=== PATIENT | male | born 1985 | race Caucasian/White ===

== ENCOUNTER 2022-01-05 13:55 | Observation (INO) | payer MEDICAID, SELFPAY ==
[2022-01-05 13:57] VITALS: BP 143/89; PULSE 113; RESP 16; TEMP 36; O2SAT 99; BMI 31.1
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
[2022-01-05 15:11] LABS: Absolute Lymphocyte Count 3.06 X10^3/uL (0.83-4.51); Absolute Neutrophil Count 6.4 X10^3/uL (2.0-7.7); Basophil# 0.08 X10^3/uL; Basophil% 0.7 % (0-1); Eosinophil# 0.29 X10^3/uL; Eosinophils% 2.6 % (0-5); Hematocrit 31.6 % (40-54); Hemoglobin 10.7 g/dL (13.0-16.5); Lymphocyte # 3.06 X10^3/ul (0.83-4.51); Lymphocyte % 27.8 % (19-41); Mean Corp Hgb Conc 33.9 g/dL (32-36); Mean Corpuscular Hgb 30.5 pg (27.0-32.0); Mean Platelet Vol. 9.4 fl (6.2-12.0); Monocyte# 1.05 X10^3/uL; Monocyte% 9.6 % (0-10); NRBC Flagged by Analyzer 0 % (0-5); Neutrophil # 6.42 X10^3/uL (2.7-7.7); Neutrophil % 58.5 % (47-70); Platelet Count 480 K/mm3 (150-450); RBC Distribution Width CV 13.6 % (11.6-14.6); RBC Distribution Width SD 44.3 fl (35.1-43.9); Red Blood Count 3.51 M/mm3 (4.6-6.2)
[2022-01-05 15:19] LABS: Anion Gap 5 (5-15); BUN 16 mg/dL (7-18); BUN/Creat Ratio 18.9 RATIO (10-20); Calcium,Total 8.6 mg/dL (8.5-10.1); Chloride 102 mmol/L (98-107); Creatinine, Serum 0.84 mg/dL (0.70-1.30); EST Glomerular Filtration Rate 108 mL/min (>60); Est Glom Filt Rate - Afr Amer 131 mL/min (>60); Estimated Creatinine Clearance 132.16 ml/min; Glucose 132 mg/dL (74-106); Potassium 3.7 mmol/L (3.5-5.1); Sodium Level 136 mmol/L (136-145)
[2022-01-05] MEDS: Morphine 4 MG/ML Syringe IV (15:20)
[2022-01-05] MEDS: Ondansetron 4 MG/2 ML Vial IV (15:20)
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
[2022-01-05 15:57] VITALS: BP 116/73; PULSE 101; RESP 16; TEMP 36; O2SAT 96
[2022-01-05 15:58] VITALS: BP 116/73; PULSE 101; RESP 16; O2SAT 96
[2022-01-05 16:28] VITALS: BMI 29.4
[2022-01-05 16:43] VITALS: BP 118/78; PULSE 100; RESP 16; TEMP 36.3; O2SAT 95
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
[2022-01-05 21:08] VITALS: BP 129/78; PULSE 102; RESP 18; TEMP 37.3; O2SAT 98
[2022-01-05] MEDS: NYSTATIN 500,000 UNIT/5 ML UDC 500000 UNIT PO (21:10)
[2022-01-05] MEDS: Morphine 2 MG/ML Syringe IV (21:17)
[2022-01-05] MEDS: 0.9% Saline Lock 10 ML Syringe IV (21:17)
[2022-01-05] MEDS: oxyCODONE 5 MG Tablet 10 MG PO (23:12)
[2022-01-05] MEDS: Acetaminophen 500 MG Tablet 1000 MG PO (23:12)
--- NOTE | 2022-01-05 23:57 | NURSING ---
pt states that he uses lots of heroin. pt is unsure of the amount, but states he used prior to being admitted to this hospital. pt states he has to get out of here. states his sister is on her way to pick him up. pharmacist in charge asked if he would like help with the withdrawal symptoms. pt declined. charge asked if there was anything we could do to help stay here. pt declined additional help.
--- NOTE | 2022-01-06 00:51 | NURSING ---
pt left ama
--- NOTE | 2022-01-06 01:00 | PCM.HOSP.N ---
Hospitalist Note Patient despite encouragement from staff to stay and offered alteration to treatment plan including withdrawal/substance abuse treatment as admitted to heroin use, left AMA 01/06/22 00:51 am.
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
== END 2022-01-06 00:45 | disposition left against medical advice (07) ==
LOC: ED 15:30 → MS3 15:49
PROVIDERS: Admitting Provider Student in an Organized Health Care Education/Training Program; Emergency Provider Emergency Medicine; Visit Provider Student in an Organized Health Care Education/Training Program
DX: S72.002D Fracture of unspecified part of neck of left femur, subsequent encounter for closed fracture with routine healing (principal); F11.99 Opioid use, unspecified with unspecified opioid-induced disorder; S22.42XD Multiple fractures of ribs, left side, subsequent encounter for fracture with routine healing; R62.7 Adult failure to thrive; R53.81 Other malaise; S60.511D Abrasion of right hand, subsequent encounter; F17.210 Nicotine dependence, cigarettes, uncomplicated; S60.512D Abrasion of left hand, subsequent encounter; V87.7XXD Person injured in collision between other specified motor vehicles (traffic), subsequent encounter; S92.902D Unspecified fracture of left foot, subsequent encounter for fracture with routine healing; S02.609D Fracture of mandible, unspecified, subsequent encounter for fracture with routine healing; S62.101D Fracture of unspecified carpal bone, right wrist, subsequent encounter for fracture with routine healing
CPT/HCPCS: 73502; 80048; 85025; 87070; 87205; 96374; 96375; 96376; 99218; 99285; 99406; A4216; G0378; J2405

== ENCOUNTER 2025-04-26 12:02 | Inpatient (IN) | payer MEDICAID, SELFPAY ==
[2025-04-26 12:02] VITALS: BP 124/92; PULSE 71; RESP 14; TEMP 36.1; O2SAT 98; BMI 31.4
--- NOTE | 2025-04-26 12:39 | EDS_ITS ---
HPI <KAY Davidson - Last Filed: 04/26/25 14:41> History of Present Illness Chief Complaint: Substance Abuse Narrative Narrative: Patient presenting today requesting to detox from opioids. He reports that he has been using opioids for many years and primarily takes Percocets that he buys off the street as well as fentanyl which he snorts. He denies any IV drug use. He is unable to quantify how much he uses in a day but he last used yesterday. He is starting to feel like he is withdrawing. He reports stomach irritation and feeling irritable. He denies any other substance use. He denies having any chronic medical conditions that he is aware of. [facility] <KAY Davidson - Last Filed: 04/26/25 14:41> [facility] Medical History Substance abuse Smoker Migraines Jaw fracture Wrist fracture, right Foot fracture, left Rib fractures Hip fracture, left Home Medications ?Medication ?Instructions ?Recorded ?Last Taken ?Type NK 04/26/25 Unknown History Allergy/AdvReac Type Severity Reaction Status Date / Time No Known Allergies Allergy Verified 04/26/25 12:02 Surgical History Status post hip surgery Social History Smoking Status: Current every day smoker tobacco type: cigarettes ROS <KAY Davidson - Last Filed: 04/26/25 14:41> ROS ED Constitutional Constitutional ED: Denies chills or fever(s) Cardiovascular Cardiovascular: Denies chest pain Respiratory/Chest Respiratory/Chest: Denies dyspnea Gastrointestinal Gastrointestinal: Denies abdominal pain, nausea or vomiting Musculoskeletal Musculoskeletal: Denies arthralgias or myalgias Integumentary Denies rash Neurologic Neurologic: Denies weakness Psychiatric Psychiatric: Denies anxiety, depression, suicidal ideation or suicidal thoughts EXAM <KAY Davidson - Last Filed: 04/26/25 14:41> Physical Exam Const Vital Signs: 04/26/25 12:02 Temperature 97 F L Temperature Source Temporal Pulse Rate 71 Respiratory Rate 14 Blood Pressure 124/92 H Blood Pressure Mean 102 Pulse Ox 98 Oxygen Delivery Method Room Air Positive well nourished, well developed and no apparent distress General Appearance ED: well developed HEENT Reports normocephalic and head/scalp atraumatic Mouth ED: Yes moist mucous membranes normal Eyes PERRL and EOMs intact bilaterally Neck full ROM and supple Chest Wall inspection of chest normal Resp normal respiratory effort and clear to auscultation bilaterally Cardio regular rate and regular rhythm GI soft to palpation, non-tender, non-distended and no masses Back/Spine normal ROM and normal to inspection Extremity normal to inspection and full ROM Neuro moves all extremities, no focal motor deficits and no sensory deficits noted Sensorium / Orientation: awake and alert Psych mental status grossly normal and thought process normal Skin no rashes or lesions noted and no wounds <Dr. Clay Campos MD - Last Filed: 04/26/25 14:04> Physical Exam Const Vital Signs: 04/26/25 12:02 Temperature 97 F L Temperature Source Temporal Pulse Rate 71 Respiratory Rate 14 Blood Pressure 124/92 H Blood Pressure Mean 102 Pulse Ox 98 Oxygen Delivery Method Room Air MDM <KAY Davidson - Last Filed: 04/26/25 14:41> [facility] MDM Narrative Medical decision making narrative: Patient presenting today requesting to detox from opioids which she has used for many years. He buys Percocets off the streets and fentanyl which she snorts. No IV drug use. He has never detoxed before. Last used yesterday. Labs obtained, his CBC and BMP are largely unremarkable. His urine drug screen is positive for fentanyl, amphetamines, and benzodiazepines. I spoke with Dr. Xie, patient admitted in stable condition for detox. Lab Data Labs: Laboratory Results - last 24 hr 04/26/25 04/26/25 12:54 13:50 WBC 8.3 RBC 4.82 Hgb 14.1 Hct 41.6 MCV 86.3 MCH 29.3 MCHC 33.9 RDW Std Deviation 40.2 RDW Coeff of Grace 12.7 Plt Count 235 MPV 10.7 Immature Gran % (Auto) 0.400 Neut % (Auto) 54.8 Lymph % (Auto) 35.8 [place] % (Auto) 6.3 Eos % (Auto) 1.9 Baso % (Auto) 0.8 Absolute Neuts (auto) 4.5 Absolute Lymphs (auto) 2.95 Nucleated RBC % 0 Sodium 145 Potassium 3.7 Chloride 108 Carbon Dioxide 26.1 Anion Gap 10 BUN 9 Creatinine 0.99 Estim Creat Clear Calc 120.79 Est GFR (MDRD) Non-Af 99 BUN/Creatinine Ratio 8.6 L Glucose 83 Calcium 9.1 Urine Opiates Screen NEGATIVE U Buprenorphine Qual NEGATIVE Ur Oxycodone Screen NEGATIVE Urine Methadone Screen NEGATIVE Urine Fentanyl Screen PRESUMPTIVE POSITIVE Ur Barbiturates Screen NEGATIVE Ur Phencyclidine Scrn NEGATIVE Ur Amphetamines Screen PRESUMPTIVE POSITIVE U Benzodiazepines Scrn PRESUMPTIVE POSITIVE Urine Cocaine Screen NEGATIVE U Cannabinoids Screen NEGATIVE Ethyl Alcohol < 10.1 <Dr. Clay Campos MD - Last Filed: 04/26/25 14:04> [facility] Lab Data Attestation: I reviewed the patient's lab results. Labs: Laboratory Results - last 24 hr 04/26/25 04/26/25 12:54 13:50 WBC 8.3 RBC 4.82 Hgb 14.1 Hct 41.6 MCV 86.3 MCH 29.3 MCHC 33.9 RDW Std Deviation 40.2 RDW Coeff of Grace 12.7 Plt Count 235 MPV 10.7 Immature Gran % (Auto) 0.400 Neut % (Auto) 54.8 Lymph % (Auto) 35.8 [place] % (Auto) 6.3 Eos % (Auto) 1.9 Baso % (Auto) 0.8 Absolute Neuts (auto) 4.5 Absolute Lymphs (auto) 2.95 Nucleated RBC % 0 Sodium 145 Potassium 3.7 Chloride 108 Carbon Dioxide 26.1 Anion Gap 10 BUN 9 Creatinine 0.99 Estim Creat Clear Calc 120.79 Est GFR (MDRD) Non-Af 99 BUN/Creatinine Ratio 8.6 L Glucose 83 Calcium 9.1 Urine Opiates Screen NEGATIVE U Buprenorphine Qual NEGATIVE Ur Oxycodone Screen NEGATIVE Urine Methadone Screen NEGATIVE Urine Fentanyl Screen PRESUMPTIVE POSITIVE Ur Barbiturates Screen NEGATIVE Ur Phencyclidine Scrn NEGATIVE Ur Amphetamines Screen PRESUMPTIVE POSITIVE U Benzodiazepines Scrn PRESUMPTIVE POSITIVE Urine Cocaine Screen NEGATIVE U Cannabinoids Screen NEGATIVE Ethyl Alcohol < 10.1 Management Discussion w/another healthcare provider: Hospitalist Treatment and Re-Evaluation Narrative: I have personally performed a face to face assessment of the patient and have reviewed the ROGER Note. I performed a substantive portion of the visit including all aspects of the following. My garza findings include: History is wanting detox from opiates. Snorts them does not use any IV drugs. Rare use of methamphetamine but denies alcohol use. Is been using heavily for years, has never done detox before. Not feeling severe withdrawal symptoms at the moment, last use was last night. Exam is alert and oriented x 3, heart is regular, no tachycardia, lungs clear, abdomen soft nontender nondistended. No signs of cellulitis. Medical Decison Making labs reviewed, toxicology. Discussed with hospitalist for detox bed. Other additions or changes: [None] Discharge Plan Dx/Rx/DC Orders Clinical Impression: Opioid dependence, Desire for detoxification Disposition Disposition: Acute Care Hospital [facility]
[2025-04-26 13:09] LABS: Absolute Lymphocyte Count 2.95 X10^3/uL (0.83-4.51); Absolute Neutrophil Count 4.5 X10^3/uL (2.0-7.7); Basophil# 0.07 X10^3/uL; Basophil% 0.8 % (0-1); Eosinophil# 0.16 X10^3/uL; Eosinophils% 1.9 % (0-5); Hematocrit 41.6 % (40-54); Hemoglobin 14.1 g/dL (13.0-16.5); Lymphocyte # 2.95 X10^3/ul (0.83-4.51); Lymphocyte % 35.8 % (19-41); Mean Corp Hgb Conc 33.9 g/dL (32-36); Mean Corpuscular Hgb 29.3 pg (27.0-32.0); Mean Corpuscular Volume 86.3 fL (80-94); Mean Platelet Vol. 10.7 fl (6.2-12.0); Monocyte# 0.52 X10^3/uL; Monocyte% 6.3 % (0-10); NRBC Flagged by Analyzer 0 % (0-5); Neutrophil # 4.52 X10^3/uL (2.7-7.7); Neutrophil % 54.8 % (47-70); Platelet Count 235 K/mm3 (150-450); RBC Distribution Width CV 12.7 % (11.6-14.6); RBC Distribution Width SD 40.2 fl (35.1-43.9); Red Blood Count 4.82 M/mm3 (4.6-6.2); White Blood Count 8.3 K/mm3 (4.4-11.0)
[2025-04-26 13:52] LABS: Alcohol, Blood (Medical)-Serum < 10.1 mg/dL (<=10.0)
[2025-04-26 13:53] LABS: Anion Gap 10 (5-15); BUN 9 mg/dL (4-19); BUN/Creat Ratio 8.6 RATIO (10-20); Calcium,Total 9.1 mg/dL (7.6-11.0); Carbon Dioxide 26.1 mmol/L (21.0-32.0); Chloride 108 mmol/L (98-108); Creatinine, Serum 0.99 mg/dL (0.70-1.20); EST Glomerular Filtration Rate 99 (>60); Estimated Creatinine Clearance 120.79 ml/min (50-250); Glucose 83 mg/dL (70-99); Potassium 3.7 mmol/L (3.3-5.1); Sodium Level 145 mmol/L (133-145)
[2025-04-26 14:02] VITALS: BP 127/68; PULSE 69; RESP 16; O2SAT 99
--- NOTE | 2025-04-26 14:22 | PCM.HP.STD ---
HPI - General General Date of Admission: 04/26/25 Date of Service: 04/26/25 Chief Complaint: Opioid detox HPI Narrative SILVIO GOMEZ, is a 38-year-old male history of opioid use disorder, tobacco use presented to [facility] ED 04/26/2025 for detox from opioids. He has been using opioids for many years, primarily Percocet which he buys off the street as well as fentanyl which he snorts. Denies any IV drug abuse. Last use was yesterday and he feels like he has started drawing. Feeling irritable with an upset stomach. In the ED vitally stable and lab workup with no evidence of endorgan damage. Hospitalist contacted for admission for opioid detox. Patient reports history as above with frequent use of Percocet and fentanyl for many years with last use yesterday, feeling somewhat irritable some GI upset and beginning to feel rough. Also uses meth 3 times a week with last use yesterday or the day before. Does smoke cigarettes with 1 pack/day. COUNTS INCLUDE 234 BEDS AT THE [facility] Medical History Substance abuse Smoker Migraines Jaw fracture Wrist fracture, right Foot fracture, left Rib fractures Hip fracture, left Home Medications ?Medication ?Instructions ?Recorded ?Last Taken ?Type NK 04/26/25 Unknown History Allergy/AdvReac Type Severity Reaction Status Date / Time No Known Allergies Allergy Verified 04/26/25 12:02 Surgical History Status post hip surgery Social History Smoking Status: Current every day smoker tobacco type: cigarettes ROS ROS Narrative General: Denies fever/chills HENT: Denies headache, denies stuffy nose, denies sore throat EYES: Denies changes in vision Resp: Denies cough, denies shortness of breath Cardiac: Denies chest pain GI: Denies abdominal pain, denies changes in bowel, denies nausea/vomiting, just feels stomach is not feeling very good : Denies changes in urination Extremity: Denies swelling MSK: Denies weakness Neuro: Denies any numbness/tingling Heme: Denies any bleeding or bruising Skin: Denies rashes Psychiatric: Starting to feel rough, feeling irritable Vital Signs Vital Signs Vital Signs: 04/26/25 12:02 Temperature 97 F L Temperature Source Temporal Pulse Rate 71 Respiratory Rate 14 Blood Pressure 124/92 H Blood Pressure Mean 102 Pulse Ox 98 Oxygen Delivery Method Room Air Weight Weight: 102.3 kg Body Mass Index (BMI) 31.4 Physical Exam Narrative General: Alert, oriented, no apparent distress HEENT: Atraumatic, normocephalic Eyes: Anicteric, normal conjunctiva, extraocular movements grossly intact Neck: Supple Respiratory: Clear to auscultation bilaterally, normal respiratory effort Cardiovascular: Regular rate and rhythm GI: Soft, nontender, nondistended Extremities: Trace lower extremity edema Musculoskeletal: Moving all extremities Neuro: No overt focal neurological deficits Skin: No rashes appreciated Psych: Cooperative Results Lab / Micro Data 04/26/25 12:54 04/26/25 12:54 Labs: Laboratory Results - last 24 hr 04/26/25 12:54: WBC 8.3, RBC 4.82, Hgb 14.1, Hct 41.6, MCV 86.3, MCH 29.3, MCHC 33.9, RDW Std Deviation 40.2, RDW Coeff of Grace 12.7, Plt Count 235, MPV 10.7, Immature Gran % (Auto) 0.400, Neut % (Auto) 54.8, Lymph % (Auto) 35.8, [place] % (Auto) 6.3, Eos % (Auto) 1.9, Baso % (Auto) 0.8, Absolute Neuts (auto) 4.5, Absolute Lymphs (auto) 2.95, Nucleated RBC % 0, Sodium 145, Potassium 3.7, Chloride 108, Carbon Dioxide 26.1, Anion Gap 10, BUN 9, Creatinine 0.99, Estim Creat Clear Calc 120.79, Est GFR (MDRD) Non-Af 99, BUN/Creatinine Ratio 8.6 L, Glucose 83, Calcium 9.1, Ethyl Alcohol < 10.1 Assessment & Plan Assessment/Plan (1) Opioid dependence: PLAN: Plan #Acute opiate withdrawal - Subutex taper initiated - As needed Tylenol, ibuprofen, bowel regimen, gabapentin, Bentyl, Vistaril, methocarbamol, clonidine - As needed trazodone nightly - As needed antiemetics -Once patient begins to clinically improve will discuss further discharge planning # Methamphetamine use disorder - Uses 3 times a week, last use 1 to 2 days ago - Advised cessation - UDS pending #Tobacco use -Advise cessation -Nicotine replacement available if desired #DVT ppx: Low risk, ambulatory Olivia Xie MD Charges/Coding Visit Charges Inpatient E&M: 41293 Init Hosp L1
[2025-04-26 14:34] LABS: Amphetamine Urine PRESUMPTIVE POSITIVE (<1000 ng/mL); Barbiturate Urine NEGATIVE (< 200 ng/mL); Benzodiazepine Urine PRESUMPTIVE POSITIVE (< 200 ng/mL); Buprenorphine Urine NEGATIVE (< 200 ng/mL); Cocaine Urine NEGATIVE (< 300 ng/mL); Fentanyl, Urine PRESUMPTIVE POSITIVE; Methadone Urine NEGATIVE (< 300 ng/mL); Opiates Urine NEGATIVE (< 300 ng/mL); Oxycodone, Urine NEGATIVE (< 100 ng/mL); PCP Urine NEGATIVE (< 25 ng/mL); THC Urine NEGATIVE (< 50 ng/mL)
[2025-04-26 16:00] VITALS: BP 136/66; PULSE 78; RESP 14; TEMP 37.2; O2SAT 99
[2025-04-26 17:25] VITALS: BP 130/97; PULSE 66; RESP 17; TEMP 36.8; O2SAT 98
--- OUTSIDE RECORDS SUMMARY | 2025-04-26 19:21 | XMS RPT_ITS | CCD ---
Author Organization [facility] Care Team Providers Care Denture Technician Name Role Phone Unavailable Primary Care Provider Unavailabl e Care Physician, No Primary Primary Care Provider Unavailable Andres SWAN, Dr. Williamson Emergency Provider Rojas SWAN, Dr. Baker Attending Provider [phone] Rojas SWAN, Dr. Baker Admit Provider Rojas SWAN, Dr. Baker Referring Provider Medications Current Medications Medication Drug Class(es) Dates Sig (Normalized) Sig (Original) Castana (Nk) (1 source) Start: 04-26-2025 Castana (Nk) A ctive April 26, 2025 12:00am Completed/Discontinued Medications Medication Drug Class(es) Dates Sig (Normalized) Sig (Original) acetaminophen 500 mg oral tablet (1 source) Start: 01-05-2022 End: 04-26-2025 take 2 tablets by mouth every six hours as needed for pain Acetaminophen 500 mg Tablet Discontinued 1000 mg PO EVERY 6 HOURS as needed for Pain January 05, 2022 1:00am April 26, 2025 12:48pm 2 ml naloxone hydrochloride 1 mg/ml prefilled syringe (2 sources) Opioid Antagonist Start: 04-25-2025 End: 04-25-2025 1 mg, IntraVENous, Once, On [place] 04/25/25 at 1725, For 1 dose, For oversedation/diffic ult to rouse, pinpoint pupils, RR Start: 04-25-2025 End: 04-25-2025 1 mg, IntraVENous, Once, On [place] 04/25/25 at 1725, For 1 dose, For oversedation/difficult to rouse, pinpoint pupils, RR microencapsulated potassium chloride 10 meq extended release oral tablet (2 sources) Start: 04-25-2025 End: 04-25-2025 40 mEq, Oral, Once, On [place] 04/25/25 at 1705, For 1 dose, Best given with food and plenty of water to minimize gastric irritation. Do not crush or chew. 50 ml sodium chloride 9 mg/m l injection (6 sources) Start: 04-25-2025 End: 04-25-2025 1,000 mL, IntraVENous, at 1,000 mL/hr, Administer over 1 Hours, Once, On [place] 04/25/25 at 2040, For 1 dose Problems Active Problems Problem Classification Problem Date Documented Date Episodic/Chronic Complications of surgical procedures or medical care (2 sources) Trauma and postoperative pulmonary insufficiency; Translations: [Acute postprocedural respiratory failure] Onset: 01-03-2022 01-03-2022 Episodic Fracture of lower limb (4 sources) Closed fracture of calcaneus; Translations: [Unspecified fracture of left calcaneus, subsequent encounter for fracture with routine healing] Onset: 01-03-2022 Episodic Fracture of upper limb (6 sources) Closed fracture of base of thumb; Translations: [Other displaced fracture of base of first metacarpal bone, right hand, subsequent encounter for fracture with routine healing] Onset: 01-03-2022 Episodic Other aftercare (1 source) Patient encounter status; Translations: [Encounter for other specified aftercare] 01-05-2022 Episodic Other fractures (1 source) Closed fracture of acetabulum; Translations: [Unspecified fracture of left acetabulum, subsequent encounter for fracture with routine healing] Episodic Other fractures (2 sources) Closed fracture of left acetabulum; Translations: [Unspecified fracture of left acetabulum, initial encounter for closed fracture] Onset: 01-03-2022 01-03-2022 Episodic Other injuries and conditions due to external causes (2 sources) Traumatic injury; Translations: [Injury, unspecified, initial encounter] Onset: 12-29-2021 12-29-2021 Episodic Other nutritional; endocrine; and metabolic disorders (1 source) Adult failure to thrive syndrome; Translations: [Adult failure to thrive] 01-05-2022 Episodic Poisoning by other medications and drugs (2 sources) Poisoning by other opioids, accidental (unintentional), initial encounter; Translations: [Poisoning by opium (alkaloids), unspecified] 04-25-2025 Episodic Residual codes; unclassified (2 sources) Delirium; Translations: [Disorientation, unspecified] Onset: 12-29-2021 12-29-2021 Episodic Residual codes; unclassified (2 sources) Withdrawal symptom; Translations: [Other general symptoms and signs] Onset: 12-29-2021 12-29-2021 Episodic Skull and face fractures (2 sources) Closed subcondylar fracture of right mandible; Translations: [Fracture of subcondylar process of right mandible, initial encounter for closed fracture] Onset: 01-01-2022 01-03-2022 Episodic Substance-related disorders (6 sources) Nicotine dependence; Translations: [Nicotine dependence, unspecified, uncomplicated] Onset: 12-30-2021 01-03-2022 Chronic Unclassified (1 source) Readiness finding 04-26-2025 Past or Other Problems Problem Classification Problem Date Documented Da te Episodic/Chronic Unclassified (2 sources) Opioid overdose, accidental or unintentional, initial encounter ([facility]) 04-26-2025 Results Test Name Value Interpretation Reference Range Facility Absolute lymphocyte countOrd ered By: Juana Lafleur on 04-26-2025 Lymphocytes Auto (Unsp spec) [#/Vol] 2.95 10*3/uL 0.83-4.51 [facility] Absolute neutrophil countOrd ered By: Juana Lafleur on 04-26-2025 Neutrophils (Bld) [#/Vol] 4.5 10*3/uL 2.0-7.7 [facility] Amphetamine detection with 1 000 ng/mL as cutoffOrdered By: Juana Lafleur on 04-26-2025 Amphetamines Screen method >1000 ng/mL Ql (U) Positive <1000 ng/mL [facility] Comment on above: If confirmation test ing is needed, a separate order will be required to send out testing to the reference laboratory. Amphetamines Screen method >1000 ng/mL Ql (U) Negative < 200 ng/mL [facility] Anion gap in Serum or Plasma Ordered By: Juana Lafleur on 04-26-2025 Anion gap [Moles/Vol] 10 mmol/L 5-15 [facility] Automated lymphocyte count a s percentage of total leukocytesOrdered By: Juana Lafleur on 04-26-2025 Lymphocytes/100 WBC Auto (Unsp spec) 35.8 % 19-41 [facility] BUN/creatinine ratioOrdered By: Juana Lafleur on 04-26-2025 Urea nitrogen/Creatinine [Mass ratio] 8.6 mg/mg Low 10-20 [facility] Basophil percentageOrdered B y: Juana Lafleur on 04-26-2025 Basophils/100 WBC (Bld) 0.8 % 0-1 [facility] Carbon dioxide, total [Moles /volume] in Central venous bloodOrdered By: Juana Lafleur on 04-26-2025 CO2 [Moles/Vol] 26.1 mmol/L 21.0-32.0 [facility] Chloride assayOrdered By: Hiral Lafleur on 04-26-2025 Chloride [Moles/Vol] 108 mmol/L 98-108 [facility] Eosinophil percentageOrdered By: Juana Lafleur on 04-26-2025 Eosinophils/100 WBC (Bld) 1.9 % 0-5 [facility] Erythrocyte distribution wid th ratioOrdered By: Juana Lafleur on 04-26-2025 Erythrocyte distribution width (RBC) [Ratio] 12.7 % 11.6-14.6 [facility] Erythrocyte distribution wid th standard deviationOrdered By: Juana Lafleur on 04-26-2025 Erythrocyte distribution width (RBC) [Ratio] 40.2 fl 35.1-43.9 [facility] Glomerular filtration rate ( GFR) estimation/1.73 sq m using serum, plasma, or whole bOrdered By: Juana Lafleur on 04-26-2025 GFR/1.73 sq M.predicted among non-blacks MDRD (S/P/Bld) [Vol rate/Area] 99 mL/min/{1.73_m2} >60 [facility] Comment on above: mL/min/1.73m2 CKD-EP I Creatinine Equation (2020) Hematocrit Auto (Bld) [Volum e fraction]Ordered By: Juana Lafleur on 04-26-2025 Hematocrit (Bld) [Volume fraction] 41.6 % 40-54 [facility] Hemoglobin measurementOrdere d By: Juana Lafleur on 04-26-2025 Hemoglobin (Bld) [Mass/Vol] 14.1 g/dL 13.0-16.5 [facility] Immature granulocytes/100 WB C Auto (Bld)Ordered By: Juana Lafleur on 04-26-2025 Immature granulocytes/100 WBC (Bld) 0.400 % 0.0-0.9 [facility] Comment on above: IG% - Immature Granu locytes (promyelocytes, myelocytes and metamyelocytes) > 1% indicates that a LEFT SHIFT is Present. Laboratory - Drug toxicology on 04-26-2025 Amphetamines Screen method >1000 ng/mL Ql (U) Positive [facility] Barbiturates Screen method >200 ng/mL Ql (U) Negative [facility] Benzodiazepines Ql (U) Positive [facility] Methadone Screen Ql (U) Negative [facility] Opiates Screen Ql (U) Negative [facility] oxyCODONE Ql (U) Negative [facility] Phencyclidine Ql (U) Negative [facility] MCV (mean corpuscular volume ) determinationOrdered By: Juana Lafleur on 04-26-2025 MCV (RBC) [Entitic vol] 86.3 fL 80-94 [facility] Mean corpuscular hemoglobin (MCH) determinationOrdered By: Juana Lafleur on 04-26-2025 MCH (RBC) [Entitic mass] 29.3 pg 27.0-32.0 [facility] Mean corpuscular hemoglobin concentration (MCHC) determinationOrdered By: Juana Lafleur on 04-26-2025 MCHC (RBC) [Mass/Vol] 33.9 g/dL 32-36 [facility] Mean platelet volume determi nationOrdered By: Juana Lafleur on 04-26-2025 Platelet mean volume (Bld) [Entitic vol] 10.7 fL 6.2-12.0 [facility] Monocyte percentageOrdered B y: Juana Lafleur on 04-26-2025 Monocytes/100 WBC (Bld) 6.3 % 0-10 [facility] Neutrophil percentageOrdered By: Juana Lafleur on 04-26-2025 Neutrophils/100 WBC (Bld) 54.8 % 47-70 [facility] No Panel InformationOrdered By: Juana Lafleur on 04-26-2025 Urine Buprenorphine Qualitative Negative < 200 ng/mL [facility] Urine Oxycodone Screen Negative < 100 ng/mL [facility] No Panel Informationon 04-26 COCAINE METAB. SCREEN Negative [facility] FENTANYL SCREEN, UR QUAL Positive [facility] The expected value f or all of the drugs listed above is Negative. The following drugs or drug groups have been screened for by Immunoassay at the following thresholds: Amphetamine class (1000 ng/mL) Barbiturates (200 ng/mL) Benzodiazepines (200 ng/mL) Cocaine (300 ng/mL) Methadone (300 ng/mL) Opiates (300 ng/mL) Oxycodone (100 ng/mL) PCP (25 ng/mL) Fentanyl (1.0 ng/ml) NOTE: These results are for medical treatment only. Analysis performed using non-forensic procedures. POSITIVE results are NOT confirmed by a more specific alternative method unless requested. If confirmation is needed, request confirmation under separate order. [facility] Nucleated red blood cell per centageOrdered By: Juana Lafleur on 04-26-2025 Nucleated RBC/100 WBC (Bld) [Ratio] 0 % 0-5 [facility] Platelet countOrdered By: Hiral Lafleur on 04-26-2025 Platelets (Bld) [#/Vol] 235 10*3/uL 150-450 [facility] Potassium measurement (mass/ volume)Ordered By: Juana Lafleur on 04-26-2025 Potassium (Unsp spec) [Mass/Vol] 3.7 mmol/L 3.3-5.1 [facility] Quantitative urine opiates m easurementOrdered By: Juana Lafleur on 04-26-2025 Opiates Ql (U) Negative < 300 ng/mL [facility] RBC Auto (Bld) [#/Vol]Ordere d By: Juana Lafleur on 04-26-2025 RBC (Bld) [#/Vol] 4.82 10*6/uL 4.6-6.2 [place] Screening urine fentanyl renetta surementOrdered By: Juana Lafleur on 04-26-2025 fentaNYL Screen Ql (U) Positive [facility] Comment on above: If confirmation test ing is needed, a separate order will be required to send out testing to the reference laboratory. Serum creatinine measurement (mass/volume)Ordered By: Juana Lafleur on 04-26-2025 Creatinine [Mass/Vol] 0.99 mg/dL 0.70-1.20 [facility] Serum glucose measurement (m ass/volume)Ordered By: Juana Lafleur on 04-26-2025 Glucose [Mass/Vol] 83 mg/dL 70-99 [facility] Serum or plasma calcium delfino urement (mass/volume)Ordered By: Juana Lafleur on 04-26-2025 Calcium [Mass/Vol] 9.1 mg/dL 7.6-11.0 [facility] Serum or plasma ethanol delfino urement (mass/volume)Ordered By: Juana Lafleur on 04-26-2025 Ethanol [Mass/Vol] mg/dL <10.1 [facility] Comment on above: This test is for med ical purposes only. The legal definition of intoxication varies according to local law. Serum or plasma urea nitroge n measurement (mass/volume)Ordered By: Juana Lafleur on 04-26-2025 Urea nitrogen [Mass/Vol] 9 mg/dL 4-19 [facility] Sodium levelOrdered By: Dirk Lafleur on 04-26-2025 Sodium [Moles/Vol] 145 mmol/L 133-145 [facility] Urine benzodiazepine levelOr dered By: Juana Lafleur on 04-26-2025 Benzodiazepines Ql (U) Positive < 200 ng/mL [facility] Comment on above: If confirmation test ing is needed, a separate order will be required to send out testing to the reference laboratory. Urine cocaine levelOrdered B y: Juana Lafleur on 04-26-2025 Cocaine Ql (U) Negative < 300 ng/mL [facility] Urine [id number]-[id number] abinol (THC) measurementOrdered By: Juana Lafleur on 04-26-2025 Cannabinoids Screen Ql (U) Negative < 50 ng/mL [facility] Urine phencyclidine (PCP) de tectionOrdered By: Juana Lafleur on 04-26-2025 Phencyclidine Ql (U) Negative < 25 ng/mL [facility] White blood cell (WBC) count Ordered By: Juana Lafleur on 04-26-2025 WBC (Bld) [#/Vol] 8.3 10*3/uL 4.4-11.0 [facility] CBC W Auto Differential pane l (Bld)Ordered By: Tyler Jeffers on 04-25-2025 Basophils (Bld) [#/Vol] 0.1 10*3/uL 0.0 - 0.2 10*3/uL [facility] Basophils/100 WBC (Bld) 0.7 % 0.0 - 2.0 % [facility] Eosinophils (Bld) [#/Vol] 0.2 10*3/uL 0.0 - 0.5 10*3/uL [facility] Eosinophils/100 WBC (Bld) 1.6 % 0.0 - 6.0 % [facility] Erythrocyte distribution width (RBC) [Ratio] 12.7 % 11.5 - 15.0 % [facility] Hematocrit (Bld) [Volume fraction] 40.4 % 40.0 - 52.0 % [facility] Hemoglobin (Bld) [Mass/Vol] 14.2 g/dL 13.0 - 18.0 g/dL [facility] Immature granulocytes (Bld) [#/Vol] 0 10*3/uL NINF - 0.1 10*3/uL [facility] Immature granulocytes/100 WBC (Bld) 0.1 % 0.0 - 2.0 % [facility] Interpretation and review of laboratory results Normal [facility] Lymphocytes (Bld) [#/Vol] 2.9 10*3/uL 1.0 - 4.3 10*3/uL [facility] Lymphocytes/100 WBC (Bld) 30.5 % 15.0 - 45.0 % [facility] MCH (RBC) [Entitic mass] 29.5 pg 26. 0 - 34.0 pg [facility] MCHC (RBC) [Mass/Vol] 35.1 % 30.5 - 36.0 % [facility] MCV (RBC) [Entitic vol] 84 fL 77.0 - 99.0 fL [facility] Monocytes (Bld) [#/Vol] 0.7 10*3/uL 0.0 - 0.9 10*3/uL [facility] Monocytes/100 WBC (Bld) 7.5 % 5.0 - 13.0 % [facility] Neutrophils (Bld) [#/Vol] 5.7 10*3/uL 1.8 - 7.5 10*3/uL [facility] Neutrophils/100 WBC (Bld) 59.6 % 38.0 - 82.0 % [facility] Nucleated RBC/100 WBC (Bld) [Ratio] 0 % [facility] Platelet mean volume (Bld) [Entitic vol] 10.6 fL 9.0 - 12.7 fL [facility] Comment on above: MPV is a calculated measurement using platelet volume ratio Platelets (Bld) [#/Vol] 262 10*3/uL 140 - 440 10*3/uL [facility] RBC (Bld) [#/Vol] 4.81 10*6/uL 4.40 - 5.9 0 10*6/uL [facility] WBC (Bld) [#/Vol] 9.5 10*3/uL 3.6 - 10.7 10*3/uL [facility] Comprehensive metabolic 1998 panelon 04-25-2025 Albumin [Mass/Vol] 4 g/dL 3.5 - 5.0 g/dL [facility] ALP [Catalytic activity/Vol] 107 U/L 40 - 150 U/L [facility] ALT [Catalytic activity/Vol] 10 U/[facility]L [facility] Anion gap [Moles/Vol] 11 mmol/L 3 - 13 mmol/L [facility] AST [Catalytic activity/Vol] 23 U/L [facility] - 34 U/L [facility] Bilirubin [Mass/Vol] 0.4 mg/dL [facility] - 1.2 mg/dL [facility] Calcium [Mass/Vol] 8.9 mg/dL 8.4 - 10. 2 mg/dL [facility] Chloride [Moles/Vol] 107 mmol/L 98 - 10 7 mmol/L [facility] CO2 [Moles/Vol] 26 mmol/L 22 - 29 mmol/L [facility] Creatinine [Mass/Vol] 1.4 mg/dL High 0.72 - 1.25 mg/dL [facility] GFR/1.73 sq M.predicted (S/P/Bld) [Vol rate/Area] 65.2 mL/min - PINF [facility] Comment on above: Calculation based on the Chronic Kidney Disease Epidemiology Collaboration (CKD-EPI) equation refit without adjustment for race Glucose [Mass/Vol] 98 mg/dL 74 - 100 mg/dL [facility] Interpretation and review of laboratory results Abnormal [facility] Potassium [Moles/Vol] 3.1 mmol/L Low 3.5 - 5.1 mmol/L [facility] Comment on above: Plasma potassium matty ues may be up to 0.5 mmol/L lower than serum values. Protein [Mass/Vol] 7 g/dL 6.4 - 8.3 g/dL [facility] Sodium [Moles/Vol] 144 mmol/L 136 - 145 mmol/L [facility] Urea nitrogen [Mass/Vol] 13 mg/dL 8 - 21 mg/d L [facility] Ethanol (Bld) [Mass/Vol]on 0 04-25-2025 Ethanol [Mass/Vol] mg/dL NINF - 10 mg/dL [facility] Interpretation and review of laboratory results Normal [facility] PHYSICS DEPARTMENT CHAIR depression is se en >100 mg/dL. NOTE: This result is for medical treatment only. Analysis performed using non-forensic procedures. [facility] Laboratory - Microbiology an d Antimicrobial susceptibilityOrdered By: Nohemi Lund on 04-25-2025 SARS-CoV-2 (COVID-19) Ag IA.rapid Ql (Resp) Negative Negative [facility] Comment on above: A negative result do es not rule out the possibility of SARS-CoV-2 infection. NAAT-based methods should be considered for symptomatic patients presenting greater than seven days after onset of symptoms. Method: Lateral flow immunoassay. Fact sheets for healthcare providers and patients can be found at the following sites: https://www.fda.gov/media/422267/download https://www.fda.gov/media/610811/download No Panel InformationOrdered By: Nicola Crouch on 04-25-2025 P [place] 68 degrees [facility] Work Phone: [place] Interval 141 ms [facility] Work Phone: QRS [place] 48 degrees [facility] Work Phone: QRSD Interval 114 ms [facility] Work Phone: QT Interval 322 ms [facility] Work Phone: QTC Interval 429 ms [facility] Work Phone: T Wave [place] 28 degrees [facility] Work Phone: [facility] Work Phone: No Panel Informationon 04-25 Sinus tachycardia Borderline intraventricular conduction delay Electronically Signed On 04-25-2025 22:46:41 EDT by Nicola rCouch CV Nicola Flores MD - 04/25/2025 IMPRESSION: Sinus tachycardia Borderline intraventricular conduction delay Electronically Signed On 04-25-2025 22:46:41 EDT by Nicola Crouch [facility] SARS-CoV-2 (COVID-19) Ag IA. rapid Ql (Resp)Ordered By: Nohemi Lund on 04-25-2025 Interpretation and review of laboratory results Normal [facility] Urinalysis complete panel (U )Ordered By: Dorene Mcgraw on 04-25-2025 Bacteria LM.HPF (Urine sed) [#/Area] Few Abnormal Negative /HPF [facility] Bilirubin Ql (U) Negative Negative mg/dL [facility] Clarity (U) Clear Clear [facility] Color (U) Yellow Lt. Yellow [facility] Epithelial cells.squamous LM.HPF (Urine sed) [#/Area] 3-5 [facility] h Glucose Ql (U) Normal Normal (<70) mg/dL [facility] Hemoglobin Ql (U) Negative Negative mg/dL [facility] Interpretation and review of laboratory results Abnormal [facility] Ketones (U) [Mass/Vol] Trace Abnormal Negat micaela mg/dL [facility] Leukocyte esterase Test strip Ql (U) Negative Negative Sarabjit/uL [facility] Mucus LM.HPF (Urine sed) [#/Area] Moderate Abnormal Negative /LPF [facility] Nitrite Ql (U) Negative Negative [facility] th pH (U) 6.0 [pH] 5.0 - 8.0 pH [facility] Protein (U) [Mass/Vol] 30 mg/dL Abnormal Negative [facility] RBC LM.HPF (Urine sed) [#/Area] 6-10 Abnormal [facility] Specific gravity (U) [Rel density] 1.03 1.005 - 1.030 [facility] Urobilinogen (U) [Mass/Vol] 2 mg/dL Abnormal Normal (0-1) [facility] Volume, Urine 12 mL [facility] WBC LM.HPF (Urine sed) [#/Area] 3-5 [facility] A specimen with <=10 WBC is not consistent with inflammation. This specimen will not reflex to a urine culture. [facility] Vital signsOrdered By: Nicola Crouch on 04-25-2025 Heart rate 106 /min bpm [facility] Work Phone: CNPNon 02-08-2022 CNPN Telephone ([id number]) SILVIO BRIZUELA ([id number]) 1985 M Date Time Provider Department 02/08/22 LEONARD NAGEL [id number] During your visit today, we recorded the following information about you: Sheryl Durham 02/08/2022 3:31 PM Signed Destiny from [employer], [id number], asked for the status of the medical necessity documentation needing 's signature, for a wheelchair for the patient. She stated it was faxed on 01/27 and 02/03. Tommie Ojeda was the ordering user, and Dr. Nagel was the authorized provider. does not have the document for signature. Yaya in the [facility] does not have the document. Did not locate document in the shared fax folder. Asked Destiny to refax the form to 's attention and note that it is the third attempt. Sheryl Durham February 08, 2022 3:30 PM Sheryl Durham 02/09/2022 8:21 AM Signed Documentation located in mailbox of [facility]. Handed it to Yaya who said she will process it. Sheryl Durham February 09, 2022 8:21 AM Allergies As of Date: 02/08/2022 (No Known Allergies) Date Reviewed: 01/27/2022 Reviewed by: Pedro Damon MD - Fully Assessed Reason for Visit: Wheelchair Follow-up [1664] Cmt: Certification of Medical Necessity Need Problem List As Of Date 02/08/2022 Noted Resolved Trauma [T14.90XA] 12/29/2021 Delirium [R41.0] 12/29/2021 Symptom of drug withdrawal [R68.89] 12/29/2021 Nicotine use disorder, F17.2 [F17.200] 12/30/2021 Closed subcondylar fracture of right side of ma*01/01/2022 Closed fracture of left calcaneus [S92.002A] 01/03/2022 Closed fracture of base of first metacarpal bon*01/03/2022 Fracture of right radius [S52.91XA] 01/03/2022 Closed fracture of left acetabulum (HCC) [S32.4*01/03/2022 Acute respiratory failure following trauma and *01/03/2022 Opioid dependence with withdrawal (HCC) [F11.23]01/03/2022 Encounter Status:Closed by SHERYL DURHAM on 02/09/22 Normal [facility] CNOVon 01-27-2022 CNOV Office Visit ([facility] ) SILVIO BRIZUELA ([id number]) 1985 M Date Time Provider Department 01/27/22 8:00 AM ME [facility] During your visit today, we recorded the following information about you: Respiration Weight Height 18/minute 107 kg 1.829 m Pedro Damon MD 01/27/2022 9:48 AM Addendum Chief complaint: S/p L hip acetabulum fracture/dislocation (ORIF 01/01/22), L calcaneus fracture, R distal radius fracture and R 1st metacarpal base fracture, Silviomonique Brizuela is a 36 year old male who presents for follow up on the above complaints. He follows up today for repeat imaging after being seen on 01/21. His upper extremities and calcaneus were treated conservatively. He has been ambulating on his L splint and accidentally stepped into a puddle today. The patient also endorses getting his splint wet in the last week while attempting to take a bath. He has been doing well with his RUE injuries. He denies any specific complaints today. Reviewed nursing note and current pain scale. PAST MEDICAL HISTORY Diagnosis Date - Delirium 12/29/2021 - Symptom of drug withdrawal 12/29/2021 History reviewed. No pertinent surgical history. History reviewed. No pertinent family history. Social History Tobacco Use - Smoking status: Current Every Day Smoker Packs/day: 1.00 Years: 6.00 Pack years: 6.00 - Smokeless tobacco: Never Used Substance Use Topics - Alcohol use: Not on file - Drug use: Yes Types: Marijuana Medications: No current outpatient medications on file. No current facility-administered medications for this visit. Allergies: ALLERGIES No Known Allergies Physical Examination: Resp 18 Ht 6' 0 (1.83m) Wt 236 lb (107.0kg) BMI 32.00 kg/(m2). General Appearance: Well appearing, alert, in no acute distress, well-hydrated, well nourished. Skin: See detailed examinations below Extremities: RUE - Splint to RUE, swelling improved. TTP around 5th proximal phalanx, entire thumb and wrist. - Limited ROM about wrist due to pain. - Motor intact M/R/U/Ax. - SILT M/R/U/Ax. - Palpable radial pulse. - Brisk capillary refill all digits. - Compartments soft, compressible. - Tolerates passive stretch of digits. LLE - Incision to L hip is well healed. - Splint taken down, maceration to entire plantar aspect of foot. No ulcers or erythema. - TTP over calcenus. - SILT S/S/SP/DP/T. - Wiggles toes - Foot warm with brisk capillary refill. - Compartments soft, compressible. - Tolerates passive stretch of digits. Peripheral Pulses: Normal. Neurologic: no focal neuro deficits Images: -XR R wrist ordered and revealed which demonstrate volarly displaced distal radius fracture with mild displacement compared to radiographs. No significant callus appreciated. -XR R hand ordered and revealed which demonstrate a basilar 1st MC fracture in unchanged length, alignment and rotation. Minimal callus formation appreciated. There is also a base of the 5th proximal phalanx fracture. Overall alignment of the 5th proximal phalanx fracture is preserved. -AP pelvis ordered and revealed which demonstrate intact hardware about the acetabulum remaining in good position. No dislocation. -XR calcaneus ordered and revealed which demonstrate a calcaneus fracture with interval displacement with increased shortening, varus angulation and with loss of calcaneal pitch. Assessment and Plan: 1. Closed displaced fracture of left acetabulum with routine healing, unspecified portion of acetabulum, subsequent encounter - ICD9: V54.19, ICD10: S32.402D (primary diagnosis) 2. Closed displaced fracture of left calcaneus with routine healing, unspecified portion of calcaneus, subsequent encounter - ICD9: V54.19, ICD10: S92.002D 3. Closed displaced fracture of base of first metacarpal bone of right hand with routine healing, unspecified fracture morphology, subsequent encounter - ICD9: V54.19, ICD10: S62.231D 4. Other closed fracture of distal end of right radius with routine healing, subsequent encounter - ICD9: V54.12, ICD10: S52.591D -X-rays of the pelvis,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 Inability to Retain Information Regarding Safety Directions as evidenced by the following behaviors Pt has had recent surgery for multiple fractures, has more surgery planned for other fractures and is withdrawing from substance abuse which pose an imminent danger to self or others. The following interventions were attempted but were not effective in protecting the patient's safety: Alarms, Bed in Low/Locked Position, Call Light Within Reach, IV/Feeding Bag/Pump Out of Vision, Medications Reviewed, Frequent Observation, Pain/Discomfort Relief, Partial Bedrails Up, Re-Orientation Methods Next, a comprehensive assessment was performed and warranted placing the patient in Soft Bilateral Ankles, Soft Bilateral Wrists, Mitt Left, the least restrictive restraint needed to protect the patient's safety. Ongoing safety assessments and evaluation for earliest removal of restraints will be performed. DATE: January 02, 2022 TIME: 5:29 PM Heather Pina RN [facility] NURSING PROG HNO ID: [id number] Author: Willa Espinoza RN Service: Nursing Author Type: Registered Nurse Type: Nursing Progress Note Filed: 01/02/2022 5:09 AM Note Text: Spoke with pharmacist Jonna and Dr Mitchell to clarify new order for phenobarbital 750mg in 100ml of ns over 30 minutes iv. Waiting for final order. [facility] NURSING PROG HNO ID: [id number] Author: Willa Espinoza RN Service: Nursing Author Type: Registered Nurse Type: Nursing Progress Note Filed: 01/02/2022 4:38 AM Note Text: notified of agitation and current vitals, new order received. Patient remains disoriented and uncooperative, unable to be redirected. Restraints remain in place and patient's spo2 98% on Room air. [facility] NURSING PROG HNO ID: [id number] Author: Willa Espinoza RN Service: Nursing Author Type: Registered Nurse Type: Nursing Progress Note Filed: 01/02/2022 3:05 AM Note Text: notified that despite ativan being given patient remains tachycardic, RR in the 30's, thrashing around in the bed, disoriented, unable to redirect. Concerns voiced and awaiting new orders. [facility] NURSING PROG HNO ID: [id number] Author: Willa Espinoza RN Service: Nursing Author Type: Registered Nurse Type: Nursing Progress Note Filed: 01/02/2022 2:20 AM Note Text: Patient is tachycardic, tachypnic, has increased temperature, diaphoretic and has increased agitation. Patient yelling and threatening to punch staff at this time, restraints remain in place for safety as patient is attempting to pull out lines and tubes, patient successfully pulled out a PIV and a new one was placed. Dr. Mitchell notified of patients vitals and agitation and new order received. [facility] NURSING PROG HNO ID: [id number] Author: Willa Espinoza RN Service: Nursing Author Type: Registered Nurse Type: Nursing Progress Note Filed: 01/02/2022 2:25 AM Note Text: Patient having increased agitation despite PRN meds given and precedex gtt maxed out, patient is trashing in bed and yelling. Dr. Mitchell notified and new order received. Normal [facility] Phosphate SerPl-mCncon 01-02 Phosphate [Mass/Vol] 2.4 mg/dL Low 2.7-4.8 [facility] Comment on above: Order Comment: Speci men Type: BLOOD SPECIMENOrdering Facility: [facility] Address: [address] [place], [place] [address] Performed By: #### 1 9123-9, 2777-1, 82238-9 ####[facility] [id number] [address] [place] ALLIED HEALTHon 01-01-2022 ALLIED HEALTH HNO ID: [id number] Author: RT Bharathi(R) Service: ? Author Type: Technologist Type: Allied Health Filed: 01/01/2022 5:55 PM Note Text: Radiology Service Progress Note PATIENT NAME: Silvio ALVARADON: [id number] DATE OF SERVICE: January 01, 2022 TIME: 5:54 PM PATIENT IDENTITY VERIFICATION COMPLETED USING TWO (2) IDENTIFIERS: Name and Date of confirmed by identification band. FALL SCREENING: Has the patient had 2 falls in the last year or 1 fall with injury or currently using an Ambulatory Assistive Device (Walker, Cane, Wheelchair, Crutches, etc.)? Inpatient: Screened on floor PATIENT GENDER DATA: Male PATIENT RELEVANT IMPLANT DATA REVIEWED: Not Applicable RADIOLOGY DEPARTMENT: General X-ray: Exam(s) Completed: Pelvis X-Ray: Pelvis General AP PERIPHERAL IV DATA: Not applicable SIGNED BY: RT Bharathi(R) January 01, 2022 5:54 PM [facility] ALLIED HEALTH HNO ID: [id number] Author: Gordon Grimaldo II Service: Infection Prevention Author Type: ? Type: Allied Health Filed: 01/01/2022 8:29 AM Note Text: ISOLATION NOTE Admission Date: 12/29/2021 Type of Isolation Recommended: Contact and Droplet Precautions Plus Eyewear (Cranberry Isolation Sign) Indication: COVID-19 ? Maintain Contact/Droplet and Eyewear isolation signage ? Remain in private room or cohort when deemed appropriate ? Don an N95 (or PAPR) prior to entering the patient room ? Avoid entering room during aerosol generating procedure when possible ? Restrict room access to essential personnel only ? Contact Infection Prevention prior to discontinuing precautions when criteria are met ? Limit transport and movement of the patient to medically necessary purposes Date Isolation Initiated: 12/31/2021 Anticipated Duration of Isolation: In consultation with Infection Prevention Type and Date of Positive Test(s): Positive for COVID19 in specimen collected 12/31/2021. SIGNATURE: Gordon Grimaldo II PATIENT NAME: Silvio Brizuela DATE: January 01, 2022 TIME: 8:28 AM PAGER/CONTACT #: Infection Prevention, [id number] Infection Prevention after hours/weekend pager: [phone] [facility] ANES POSTPROC EVALon 022 ANES POSTPROC EVAL HNO ID: [id number] Author: Tanesha Enciso MD Service: Anesthesiology Author Type: Anesthesiologist Type: Anesthesia Postprocedure Evaluation Filed: 01/01/2022 6:21 PM Note Text: POST ANESTHESIA EVALUATION NOTE : 1985 Procedure Summary Date: 01/01/22 Room / Location: [place] OR / [place] Anesthesia Start: 1349 Anesthesia Stop: 171 Procedure: ORIF ACETABULAR WALL FX (Left Hip) Diagnosis: Acetabulum fracture, left (HCC) (Acetabulum fracture, left (HCC) [S32.402A]) Surgeons: Donato Ordaz MD Responsible Provider: Tanesha Enciso MD Anesthesia Type: general ASA Status: 3 Anesthesia Type: general Airway Type: ETT Last Vitals Vitals Value Taken Time BP 126/102 01/01/22 1800 Temp 36 ?C (96.8 ?F) 01/01/22 1820 Pulse 82 01/01/22 1820 Resp 22 01/01/22 1820 SpO2 98 % 01/01/22 182 Vitals shown include unvalidated device data. Post Anesthesia Patient Status Patient Evaluation: ICU. PACU/ICU Patient Condition: guarded. Anticipated Disposition: ICU planned admission. Neurological Status: sedated. Pulmonary Status: breathing comfortably on room air Airway Control: returned to baseline unsupported. Cardiovascular Status: stable. Postoperative Hydration: acceptable. Intraoperative Events: no significant anesthesia events Post Operative Nausea/Vomiting Status: no significant post operative nausea or vomiting Anesthetic Observations: Recommendation: further care per PACU/ICU/floor team. Anesthesia Observations No Documentation SIGNATURE: Tanesha Enciso MD PATIENT NAME: Silvio Brizuela DATE: January 01, 2022 TIME: 6:21 PM CSN: [id number] [facility] ANES PRE-OPon 01-01-2022 ANES PRE-OP HNO ID: [id number] Author: Seven Rivero MD Service: Anesthesiology Author Type: Physician Type: Anesthesia Preprocedure Evaluation Filed: 01/01/2022 12:40 PM Note Text: ANESTHESIOLOGY DAY OF SURGERY NOTE : 1985 Procedure Information Date/Time: 01/01/22 1300 Procedure: ORIF ACETABULAR WALL FX (Left Hip) - REGIONAL BLOCK/AAA, ANESTHESIA CHOICE Location: [place] OR / [place] Surgeons: Donato Ordaz MD Estimated body mass index is 30.26 kg/m? as calculated from the following: Height as of this encounter: 182.9 cm (6'). Weight as of this encounter: 101.2 kg (223 lb 1.7 oz). Most recent hematocrit and potassium results: Hematocrit 27.5 01/01/2022 Potassium 3.5 01/01/2022 Relevant Problems No relevant active problems I - PHYSICAL EVALUATION AIRWAY Patient intubated: No. Tracheostomy tube not present Mallampati: II. TM distance: >3 FB. Neck ROM: full ROM without neurological symptoms. Mouth opening: adequate. Short neck: no. Thick neck: no DENTAL Dental findings: teeth intact and poor dentition. II - ANESTHESIA PLAN ASA Score: 3 Anesthetic Plan: general NPO Status: adequate Monitoring plan: standard ASA. Postoperative analgesic plan: parenteral or oral opioids. Patient / Surrogate agrees to blood products: Yes Potential Anesthesia issues that may suggest increased risk of complications or contraindication to planned procedure: none. Vitals Value Taken Time BP 85/55 01/01/22 1200 Pulse 84 01/01/22 1237 Resp 18 01/01/22 1237 Temp 36.7 ?C (98.06 ?F) 01/01/22 1237 SpO2 97 % 01/01/22 1237 Vitals shown include unvalidated device data. Facility-Administered Medications as of 01/01/2022 Medication Dose Route Frequency - potassium phosphate 45 mmol in NaCl 0.9% 500 mL 45 mmol INTRAVENOUS ONCE - QUEtiapine 50 mg tab(s) (SEROquel) 50 mg ORAL BID - haloperidol lactate 5 mg short-acting injection (HALDOL) 5 mg INTRAVENOUS q 4 H PRN - potassium-sodium phosphates 1 Packet (NEUTRA-PHOS,PHOS-NAK) 1 Packet ORAL TID - HYDROmorphone 1 mg injection (DILAUDID) 1 mg INTRAVENOUS q 3 H PRN - [COMPLETED] sodium phosphate 45 mmol in D5W 250 mL 45 mmol INTRAVENOUS ONCE - acetaminophen 975 mg CUP (TYLENOL) 975 mg ORAL QID - ceFAZolin iv piggyback 2 g in D5W (iso-osmotic) 100 mL (ANCEF) 2 g INTRAVENOUS q 6 HR - oxyCODONE 10-15 mg oral liquid (ROXICODONE) 10-15 mg ORAL q 4 H PRN - [COMPLETED] lactated ringers 1,000 mL iv bolus 1,000 mL INTRAVENOUS ONCE - [COMPLETED] sodium phosphate 45 mmol in D5W 250 mL 45 mmol INTRAVENOUS ONCE - [COMPLETED] potassium phosphate 45 mmol in NaCl 0.9% 500 mL 45 mmol INTRAVENOUS ONCE - gabapentin 300 mg oral liquid (NEURONTIN) 300 mg ORAL TID - enoxaparin 30 mg injection (LOVENOX) 30 mg SUBCUTANEOUS BID - polyethylene glycol 3350 17 g packet (MIRALAX, GLYCOLAX) 17 g ORAL DAILY - [COMPLETED] tetanus, diphtheria, and pertussis (Tdap) vaccine 0.5 mL injection (ADACEL, Tdap) 0.5 mL INTRAMUSCULAR ONCE (IMMUNIZATION) - [COMPLETED] piperacillin-tazobacta m 3.375 g in D5W 50 mL MB+ (ZOSYN) 3.375 g INTRAVENOUS ONCE - [COMPLETED] ketamine injection (KETALAR) INTRAVENOUS PRN - [COMPLETED] fentaNYL 50 mcg/mL 100 mcg injection (SUBLIMAZE) 100 mcg INTRAVENOUS ONCE - ondansetron 4 mg tab(s) (ZOFRAN) 4 mg ORAL q 6 H PRN Or - ondansetron (PF) 4 mg injection (ZOFRAN) 4 mg INTRAVENOUS q 6 H PRN - sodium chloride 0.9 % (flush) 3-5 mL (BD POSIFLUSH) 3-5 mL INTRAVENOUS q 12 H - lidocaine 4 % 1 Patch (SALONPAS) 1 Patch TRANSDERMAL DAILY AT 9 PM And - lidocaine patch - REMOVE OTHER DAILY And - lidocaine - VERIFY PATCH OTHER q 8 H - [COMPLETED] ketamine injection (KETALAR) INTRAVENOUS PRN - [COMPLETED] propofol injection (DIPRIVAN) INTRAVENOUS PRN - [COMPLETED] lidocaine 1%-EPINEPHrine 1:100,000 20 mL injection 20 mL INTRADERMAL ONCE - [COMPLETED] LORazepam 2 mg injection (ATIVAN) 2 mg INTRAVENOUS ONCE - dexAMETHasone 0.1 % 4 Drop (DEXASOL) 4 Drop RIGHT EAR BID And - ciprofloxacin 0.3 % 4 Drop (CILOXAN) 4 Drop RIGHT EAR BID - [COMPLETED] naloxone 0.4 mg injection (NARCAN) 0.4 mg INTRAVENOUS ONCE - [COMPLETED] diphenhydrAMINE 50 mg injection (BENADRYL) 50 mg INTRAVENOUS ONCE - [COMPLETED] LORazepam 2 mg injection (ATIVAN) 2 mg INTRAVENOUS ONCE - NaCl 0.9% iv flush bag 20 mL INTRAVENOUS PRN - [COMPLETED] PHENobarbital 750 mg in NaCl 0.9% 100 mL 750 mg INTRAVENOUS ONCE - dexmedeTOMIDine 400 mcg in NaCl 0.9% 100 mL (PRECEDEX) 0.2-1.5 mcg/kg/hr INTRAVENOUS CONTINUOUS No current outpatient medications on file as of 01/01/2022. I have interviewed and examined the patient. I have reviewed the medical record and/or the pre-anesthesia evaluation, pertinent labs, and test results. This contains updated information obtained within 48 hours of Surgery/Procedure. SIGNATURE: Seven Rivero MD PATIENT NAME: Silvio Brizuela DATE: January 01, 2022 TIME: 12:38 PM CSN: [id number] [facility] BRIEF OP NOTon 01-01-2022 BRIEF OP NOT HNO ID: [id number] Author: Beto Platt MD Service: Orthopaedic Surgery Author Type: Resident Type: Brief Op Note Filed: 01/01/2022 4:57 PM Note Text: BRIEF OPERATIVE / PROCEDURE NOTE LOG ID: [id number] SURGERY/PROCEDURE DATE: 01/01/2022 INCISION/PROCEDURE START TIME: 2:31 PM INCISION CLOSE/PROCEDURE END TIME: 4:26 PM SURGEON(S)/PROCEDURALI ST(S) AND SWITCHBOARD TROUBLESHOOTER(S): Surgeon(s) and Role: * Donato Ordaz MD - Primary * Beto Platt MD - Resident - Assisting * Jameel Villalpando MD - Resident - Assisting No Additional Staff SURGERY/PROCEDURE(S): 1) ORIF Left Acetabulum Fracture 2) Removal of Left Lower Extremity External Fixator 3) Application of Splint to Left Lower Extremity ANESTHESIA: General FINDINGS: See operative report for full details ESTIMATED BLOOD LOSS: 150 mls ANTIBIOTICS: Ancef 2g IV SPECIMENS: None COMPLICATIONS: None PRE-OP/PRE-PROCEDURE DIAGNOSIS: 1) Left Posterior Wall Acetabulum Fracture-Dislocation POST-OP/POST-PROCEDURE DIAGNOSIS: 1) Left Posterior Wall Acetabulum Fracture-Dislocation Post-Operative Plan: -Management per orthopaedics -Maintain splint to the left lower and right upper extremities: keep dry, clean and intact -PT/OT: Non-weightbearing with the left lower extremity with posterior hip precautions; non-weightbearing with the right upper extremities -DVT PPX: Lovenox 30 mg BID x 21 days; SCDs -Post-Operative Antibiotics: Ancef 2g q6H for 24 hours from an orthopaedic standpoint -Heterotopic Ossification PPX: Rad Onc consult -Post-Operative AP Pelvis X-Ray ordered -Johns: Management per trauma -Maintain aquacel dressing to the left hip x 7 days (azalea in incision) -Ice to the left hip -Pain control per trauma -Disposition per trauma. Further surgical interventions to the right distal radius, right first metacarpal and left calcaneus fractures planning. Beto Platt MD Orthopaedic Surgery 01/01/2022 4:46 PM Normal [facility] Basic metabolic 2000 panelon 01-01-2022 Anion gap [Moles/Vol] 8 mmol/L Low 9-18 [facility] Comment on above: Order Comment: Speci men Type: BLOOD SPECIMEN Ordering Facility: [facility] Address: [address] [place] [address] Performed By: #### H STNT #### [facility] CLIA [id number] 1 [place] [address] [place] Calcium [Mass/Vol] 8.2 mg/dL Low 8.5-10.2 [facility] Comment on above: Order Comment: Speci men Type: BLOOD SPECIMEN Ordering Facility: [facility] Address: [address] [place] [address] Performed By: #### H STNT #### [facility] CLIA [id number] 1 [place] [address] [place] Chloride [Moles/Vol] 106 mmol/L High 97-105 [facility] Comment on above: Order Comment: Speci men Type: BLOOD SPECIMEN Ordering Facility: [facility] Address: [address] [place] [address] Performed By: #### H STNT #### [facility] CLIA [id number] 1 [place] [address] [place] CO2 [Moles/Vol] 26 mmol/L Normal 22-30 [facility] Comment on above: Order Comment: Speci men Type: BLOOD SPECIMEN Ordering Facility: [facility] Address: [address] [place] [address] Performed By: #### H STNT #### [facility] CLIA [id number] [address] [place] Creatinine [Mass/Vol] 0.86 mg/dL Normal 0.73-1.22 [facility] Comment on above: Order Comment: Preston gaitan Type: BLOOD SPECIMEN Ordering Facility: [facility] Address: [address] [place] [address] Performed By: #### H STNT #### [facility] CLIA [id number] [address] [place] ESTIMATED GLOMERULAR FILTRATION RATE 114 mL/min/1.73m??? Normal >=60 [facility] Comment on above: Order Comment: Preston kandy Type: BLOOD SPECIMEN Ordering Facility: [facility] Address: [address] [place] [address] Result Comment: Tyra mated Glomerular Filtration Rate (eGFR) is calculated using the 2020 CKD-EPI creatinine equation. This equation utilizes serum creatinine, sex, and age as parameters. The creatinine assay has traceable calibration to isotope dilution-mass spectrometry. Refer to KDIGO guidelines for clinical interpretation. In patients with unstable renal function, e.g. those with acute kidney injury, the eGFR may not accurately reflect actual GFR. Performed By: #### H STNT #### [facility] CLIA [id number] [address] [place] [address] [place] Glucose [Mass/Vol] 122 mg/dL High 74-99 [facility] Comment on above: Order Comment: Preston kandy Type: BLOOD SPECIMEN Ordering Facility: [facility] Address: [address] [place] [address] Result Comment: The [place] Diabetes Association (ADA) provides guidance for cutoff values for fasting glucose and random glucose. The ADA defines fasting as no caloric intake for at least 8 hours. Fasting plasma glucose results between 100 to 125 mg/dL indicate increased risk for diabetes (prediabetes). Fasting plasma glucose results greater than or equal to 126 mg/dL meet the criteria for diagnosis of diabetes. In the absence of unequivocal hyperglycemia, results should be confirmed by repeat testing. In a patient with classic symptoms of hyperglycemia or hyperglycemic crisis, random plasma glucose results greater than or equal to 200 mg/dL meet the criteria for diagnosis of diabetes. Reference: Standards of Medical Care in Diabetes 2016, [place] Diabetes Association. Diabetes Care. 2016.39(Suppl 1). Performed By: #### H STNT #### [facility] CLIA [id number] [address] STATES OF [facility] Potassium [Moles/Vol] 3.5 mmol/L Low 3.7-5.1 [facility] Comment on above: Order Comment: Speci men Type: BLOOD SPECIMEN Ordering Facility: [facility] Address: [address] [place] [address] Performed By: #### H STNT #### [facility] CLIA [id number] [address] Sodium [Moles/Vol] 140 mmol/L Normal 136-144 [facility] Comment on above: Order Comment: Speci men Type: BLOOD SPECIMEN Ordering Facility: [facility] Address: [address] [place] [address] Performed By: #### H STNT #### [facility] CLIA [id number] [address] [place] [address] STATES [place] [facility] Urea nitrogen [Mass/Vol] 14 mg/dL Normal 9-24 [facility] Comment on above: Order Comment: Speci men Type: BLOOD SPECIMEN Ordering Facility: [facility] Address: [address] [place] [address] Performed By: #### H STNT #### [facility] CLIA [id number] [address] [place] [address] [place] CALCIUM IONIZED Bon 01-02-20 22 Calcium.ionized (BldV) [Mass/Vol] 1.08 mmol/L Normal 1.08-1.30 [facility] Comment on above: Order Comment: Speci men Type: BLOOD SPECIMEN Ordering Facility: [facility] Address: [address] [place] [address] Performed By: #### I CA #### [facility] CLIA [id number] [address] [place] [address] Calcium.ionized adjusted to pH 7.4 (Bld) [Moles/Vol] 1.11 mmol/L Normal 1.08-1.30 [facility] Comment on above: Order Comment: Speci men Type: BLOOD SPECIMEN Ordering Facility: [facility] Address: [address] [place] [address] Performed By: #### I CA #### [facility] CLIA [id number] [address] [place] CASE MANAGEMon 01-01-2022 CASE MANAGEM HNO ID: [id number] Author: OSEAS Michele Service: ? Author Type: Adjunct Physical Education Instructor Type: Care Mgt Progress Note Filed: 01/01/2022 11:14 AM Note Text: CARE MANAGEMENT PROGRESS NOTE SERVICE DATE: 01/01/2022 SERVICE TIME: 11:13 AM LOS: 3 days Reviewed chart. Pt is anticipated to go to the OR today. Pt also found to be Covid+ overnight. Pt is still not appropriate to complete trauma/substance abuse assessment. SW will continue to follow. SIGNATURE: OSEAS Michele PATIENT NAME: Silvio Brizuela DATE: January 01, 2022 TIME: 11:13 AM PAGER/CONTACT #: [phone] Normal [facility] CBC panel Auto (Bld)on 01-01 Erythrocyte distribution width (RBC) [Ratio] 12.1 % Normal 11.5-15.0 [facility] Comment on above: Order Comment: Speci men Type: BLOOD SPECIMEN Ordering Facility: [facility] Address: [address] [place] [address] Performed By: #### I CA #### [facility] CLIA [id number] [address] STATES OF [facility] Hematocrit (Bld) [Volume fraction] 27.5 % Low 39.0-51.0 [facility] Comment on above: Order Comment: Speci men Type: BLOOD SPECIMEN Ordering Facility: [facility] Address: [address] [place] [address] Performed By: #### I CA #### [facility] CLIA [id number] [address] [place] [address] [place] Hemoglobin (Bld) [Mass/Vol] 9.7 g/dL Low 13.0-17.0 [facility] Comment on above: Order Comment: Speci men Type: BLOOD SPECIMEN Ordering Facility: [facility] Address: [address] [place] [address] Performed By: #### I CA #### [facility] CLIA [id number] [address] MCH (RBC) [Entitic mass] 29.9 pg Normal 26.0-34.0 [facility] Comment on above: Order Comment: Speci men Type: BLOOD SPECIMEN Ordering Facility: [facility] Address: [address] [place] [address] Performed By: #### I CA #### [facility] CLIA [id number] [address] MCHC (RBC) [Mass/Vol] 35.3 g/dL Normal 30.5-36.0 [facility] Comment on above: Order Comment: Speci men Type: BLOOD SPECIMEN Ordering Facility: [facility] Address: [address] [place] [address] Performed By: #### I CA #### [facility] CLIA [id number] [address] MCV (RBC) [Entitic vol] 84.9 fL Normal 80.0-100.0 [facility] Comment on above: Order Comment: Speci men Type: BLOOD SPECIMEN Ordering Facility: [facility] Address: [address] [place] [address] Performed By: #### I CA #### [facility] CLIA [id number] [address] Nucleated RBC (Bld) [#/Vol] 10*3/uL Normal <0.01 [facility] Comment on above: Order Comment: Speci men Type: BLOOD SPECIMEN Ordering Facility: [facility] Address: [address] [place] [address] Performed By: #### I CA #### [facility] CLIA [id number] [address] [place] Platelet mean volume (Bld) [Entitic vol] 10.9 fL Normal 9.0-12.7 [facility] Comment on above: Order Comment: Speci men Type: BLOOD SPECIMEN Ordering Facility: [facility] Address: [address] [place] [address] Performed By: #### I CA #### [facility] CLIA [id number] [address] [place] Platelets (Bld) [#/Vol] 215 10*3/uL Normal 150-400 [facility] Comment on above: Order Comment: Speci men Type: BLOOD SPECIMEN Ordering Facility: [facility] Address: [address] [place] [address] Performed By: #### I CA #### [facility] CLIA [id number] [address] [place] RBC (Bld) [#/Vol] 3.24 10*6/uL Low 4.20-6.00 [facility] Comment on above: Order Comment: Speci men Type: BLOOD SPECIMEN Ordering Facility: [facility] Address: [address] [place] [address] Performed By: #### I CA #### [facility] CLIA [id number] [address] OF [facility] WBC (Bld) [#/Vol] 8.59 10*3/uL Normal 3.70-11.00 [facility] Comment on above: Order Comment: Speci men Type: BLOOD SPECIMEN Ordering Facility: [facility] Address: [address] [place] [address] Performed By: #### I CA #### [facility] CLIA [id number] [address] [place] Magnesium SerPl-mCncon 01-01 Magnesium [Mass/Vol] 2.0 mg/dL Normal 1.7-2.3 [facility] Comment on above: Order Comment: Speci men Type: BLOOD SPECIMEN Ordering Facility: [facility] Address: [address] [place], [place] [id number] Performed By: #### H STNT #### [facility] CLIA [id number] 1 [place] [id number] [facility] OF [facility] NURSING PROGon 01-01-2022 NURSING PROG HNO ID: [id number] Author: Willa Espinoza RN Service: Nursing Author Type: Registered Nurse Type: Nursing Progress Note Filed: 01/02/2022 3:08 AM Note Text: Nursing Progress: Topic: RESTRAINT NON-VIOLENT PATIENT NAME: Silvio Brizuela PATIENT LOCATION: [place] [address]* The patient demonstrates Attempting to Remove Medical Devices Vital to Medical Stability, Impulsive Behavior, Inability to be Redirected as evidenced by the following behaviors attempting to pull at lines and tubes, unable to follow directions regarding medical equipment which pose an imminent danger to self or others. The following interventions were attempted but were not effective in protecting the patient's safety: Alarms, Bed in Low/Locked Position, Call Light Within Reach, IV/Feeding Bag/Pump Out of Vision, Medications Reviewed, Modify Environment, Modify Equipment, Frequent Observation Next, a comprehensive assessment was performed and warranted placing the patient in Soft Bilateral Wrists, Soft Bilateral Ankles, the least restrictive restraint needed to protect the patient's safety. Ongoing safety assessments and evaluation for earliest removal of restraints will be performed. DATE: January 02, 2022 TIME: 3:07 AM Willa Espinoza RN [facility] NURSING PROG HNO ID: [id number] Author: Sarika Lynn RN Service: ? Author Type: Registered Nurse Type: Nursing Progress Note Filed: 01/01/2022 9:05 AM Note Text: Nursing Progress: Topic: RESTRAINT NON-VIOLENT PATIENT NAME: Silvio Brizuela PATIENT LOCATION: [place] [address] [address]* The patient demonstrates Attempting to Remove Medical Devices Vital to Medical Stability, Impulsive Behavior,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 paraspinal soft tissues are within normal limits. Degenerative changes: Mild disc degenerative changes at C4-C5, C5-C6, and C6-C7 with small posterior disc osteophytes. No significant central canal stenosis or osseous neural foraminal narrowing. Mild right osseous neural foraminal narrowing at C5-6 and C6-C7 and mild left osseous neural foraminal narrowing at C6-C7 due to uncovertebral joint hypertrophy. Inbound Sales Consultant (topogram) images: No other significant finding. IMPRESSION: No evidence of acute intracranial injury or calvarial fracture. No evidence of acute cervical spine fracture or traumatic malalignment. Either 0.3 cm calcification or radiopaque foreign body within the soft tissues overlying the midline of the mandible. Please correlate with physical examination findings. Numerous dental cavities with periapical lucencies suggesting small periapical abscesses. No other associated acute complication. Findings compatible with chronic nonaggressive left maxillary sinusitis. Cervical spine degenerative changes as described. Tank Builder Supervisor: PSCB Transcribe Date/Time: Dec 29 2021 12:48A Dictated by : MICHELLE ARAUJO MD This examination was interpreted and the report reviewed and electronically signed by: MICHELLE ARAUJO MD on Dec 29 2021 1:09AM EST [id number] Normal [facility] CT CHEST W IVCONon 2 CT CHEST W IVCON * * *Final Report* * * DATE OF EXAM: Dec 29 2021 12:47AM [facility] 0539 - CT CHEST W IVCON / PROCEDURE REASON: Chest trauma, blunt * * * * Physician Interpretation * * * * EXAM: CT CHEST W IVCON, CT ABD/PEL W IVCON INDICATION: Chest trauma, blunt COMPARISON: None. TECHNIQUE: Chest, abdomen and pelvis were scanned utilizing a multidetector helical scanner from the lung apex to the pubic symphysis. IV CONTRAST: 75 mL Isovue 300/370 CT Radiation dose: Integrated Dose-length product (DLP) for this visit = 2645 mGy*cm. CT Dose Reduction Employed: Automated exposure control(AEC) and iterative recon FINDINGS: CT CHEST, ABD PELVIS: Lines, tubes, and devices: None Lung parenchyma, pleura, and airways: Peripheral contusions left anterior lateral chest and anterior right middle lobe. Bilateral peripheral reticulations. No pleural effusion or pneumothorax. Punctate likely extrapleural air adjacent to rib fracture. Lower neck, lymph nodes, and mediastinum: No mediastinal hematoma. No pathologically enlarged nodes. Heart, pericardium, and thoracic vessels: The heart is within normal size limits. No abnormal pericardial effusion. No evidence of acute traumatic aortic injury. Liver: No mass, laceration or hematoma. Biliary: Cholelithiasis. No biliary dilation. Spleen: No laceration or hematoma. Pancreas: No mass or ductal dilation. Adrenals: No mass. Kidneys: Normal appearance of the right kidney. The left kidney is absent. GI tract: Nonspecific high density debris in the fundus of the stomach, possibly undigested pills. No bowel wall thickening or obstruction. Appendix: Normal Lymph nodes: No lymphadenopathy. Mesentery/Peritoneum: No ascites or mass. Retroperitoneum: No mass or fluid collection. Vasculature: No abdominal aortic aneurysm or branch occlusion. Pelvis: Normal prostate and seminal vesicles. Normal bladder. Bones/Soft Tissues: Left rib fractures: Displaced left lateral third, fourth, fifth and nondisplaced left lateral sixth and seventh and eighth. Acute right anterior fourth through seventh costochondral junction fractures. Posterior dislocation of the left femoral head. Acute comminuted fracture of the posterior acetabulum. Focal sclerosis left iliac, likely a bone island. Acute fractures of the left distal radius, distal ulna, first metacarpal, and likely pisiform. IMPRESSION: 1. Multiple acute bilateral rib fractures with associated mild peripheral contusions anteriorly. No pneumothorax or hemothorax. 2. Left femoral head posterior dislocation associated with displaced left posterior acetabular fracture. 3. No evidence of acute intra-abdominal pelvic abnormality. 4. Acute fractures of the left wrist and hand. Tank Builder Supervisor: FREEDOM Transcribe Date/Time: Dec 29 2021 12:56A Dictated by : DANA CHEN MD This examination was interpreted and the report reviewed and electronically signed by: DANA CHEN MD on Dec 29 2021 1:20AM EST [id number] Normal [facility] CT FACIAL BONE/NEAL W IVCONo n 12-29-2021 CT FACIAL BONE/NEAL W IVCON * * *Final Report* * * DATE OF EXAM: Dec 29 2021 12:40AM [facility] 0010 - CT FACIAL BONE/NEAL W IVCON / PROCEDURE REASON: Difficulty opening mouth * * * * Physician Interpretation * * * * EXAMINATION: CT BRAIN WO IVCON, CT CERVICAL SPINE WO IVCON, CT FACIAL BONE/NEAL W IVCON CLINICAL HISTORY: Head trauma, headache (accession [id number]), C-spine fx, traumatic (accession [id number]) TECHNIQUE: CT head: Serial axial images without IV contrast were obtained from the vertex to the foramen magnum. MQ: CTBWO_3 CT facial: Spiral high resolution axial unenhanced images were obtained through the facial bones with sagittal and coronal planar reconstructions. MQ: CTMFWO_1 CT cervical spine: CT of the cervical spine without IV contrast. Spiral, high resolution axial images were obtained from the skull base to the cervicothoracic junction with sagittal and coronal planar reconstructions. MQ: CTCSPWO_5 CT Dose-Length Product (DLP): 1803 mGy*cm CT Dose Reduction Employed: Automated exposure control(AEC) and iterative recon COMPARISON: None. RESULT: CT head: Post-operative change: None. Acute change: No evidence of acute parenchymal process. Hemorrhage: No evidence of acute intracranial hemorrhage. Mass Lesion / Mass Effect: There is no evidence of an intracranial mass or extraaxial fluid collection. No significant mass effect. Chronic change: None apparent. Parenchyma: There is no significant volume loss. The brain parenchyma is otherwise within normal limits for age. Ventricles: The ventricles are within normal limits of size and configuration for age. Paranasal sinuses and skull base: Partially visualized frothy secretions layering fluid in the left maxillary sinus. Remainder the visualized paranasal sinuses are clear. Mastoid air cells and middle ears are clear. No calvarial fracture. CT facial: Soft Tissues: Laceration and soft tissue swelling is noted over the left aspect of the mandible. Lacerations are noted over the right and anterior mandible. Facial bones: No evidence of an acute fracture in the visualized facial bones. Orbits: No evidence of an acute fracture. The globes appear symmetric and unremarkable within limits of noncontrast CT. The soft tissue planes of the orbits are maintained. Paranasal Sinuses: Layering fluid and probably secretions in the left maxillary sinus without aggressive osseous features. There is mild osseous eburnation of the grigsby left maxillary sinus suggesting chronic sinusitis. Minimal mucosal thickening in the right maxillary sinus. Foreign Bodies: There is either a 0.3 cm calcification or radio opaque foreign body in the midline of the soft tissues overlying the mandible. Other: No evidence of a remote fracture. No aggressive lytic or sclerotic osseous lesions. Numerous dental cavities with periapical lucencies suggesting small periapical abscesses. No other evidence of associated acute complication such as soft tissue abscess or cellulitis. CT cervical spine: Counting reference: Craniocervical junction. Anatomic Variants: None. Alignment: Alignment is anatomic. Craniocervical junction: Craniocervical junction is normal. Osseous structures/fracture: No evidence of a lytic or blastic process in the visualized spine. No evidence of acute or chronic fracture. Cervical soft tissues: The paraspinal soft tissues are within normal limits. Degenerative changes: Mild disc degenerative changes at C4-C5, C5-C6, and C6-C7 with small posterior disc osteophytes. No significant central canal stenosis or osseous neural foraminal narrowing. Mild right osseous neural foraminal narrowing at C5-6 and C6-C7 and mild left osseous neural foraminal narrowing at C6-C7 due to uncovertebral joint hypertrophy. Inbound Sales Consultant (topogram) images: No other significant finding. IMPRESSION: No evidence of acute intracranial injury or calvarial fracture. No evidence of acute cervical spine fracture or traumatic malalignment. Either 0.3 cm calcification or radiopaque foreign body within the soft tissues overlying the midline of the mandible. Please correlate with physical examination findings. Numerous dental cavities with periapical lucencies suggesting small periapical abscesses. No other associated acute complication. Findings compatible with chronic nonaggressive left maxillary sinusitis. Cervical spine degenerative changes as described. Tank Builder Supervisor: PSCB Transcribe Date/Time: Dec 29 2021 12:48A Dictated by : MICHELLE ARAUJO MD This examination was interpreted and the report reviewed and electronically signed by: MICHELLE ARAUJO MD on Dec 29 2021 1:09AM EST [id number] Normal [facility] CT PELVIS ORTHO WO IVCONon 0 12-29-2021 CT PELVIS ORTHO WO IVCON * * *Final Repo rt* * * DATE OF EXAM: Dec 29 2021 3:07AM [facility] 0087 - CT PELVIS ORTHO WO IVCON / PROCEDURE REASON: Dislocation, hip * * * * Physician Interpretation * * * * EXAMINATION: CT SCAN OF THE PELVIS WITHOUT IV CONTRAST CLINICAL HISTORY: Post reduction imaging for dislocated hip TECHNIQUE: Non-IV contrast imaging of the pelvis was performed using standard technique, scanning from just above the iliac crests through the upper thighs. 3-D volume rendered images were generated. Contrast: IV: None CT Dose-Length Product: 802 mGy*cm CT Dose Reduction Employed: Automated exposure control(AEC) and iterative recon COMPARISON: Pelvic radiographs 12/29/2021 FINDINGS: Bones/joints: Comminuted fractures involving the left superior acetabulum with multiple bone fragments distributed throughout the joint space between the femoral head and acetabulum. The femoral head and neck are intact. Remaining bony pelvis and right hip are intact. Dense sclerotic focus in the left iliac bone is most consistent with a benign bone island/enostosis. No sizable joint effusion. Small amount of inflammatory stranding along the deep intramuscular fat planes appreciated. Soft tissues: Included abdominopelvic contents are unremarkable for any acute findings. No free fluid or lymphadenopathy. Inbound Sales Consultant (topogram) images: No additional findings. IMPRESSION: 1. Displaced comminuted left acetabular roof fracture with bone fragments in the joint space (see annotated images). Left femur is otherwise intact. Tank Builder Supervisor: FREEDOM Transcribe Date/Time: Dec 29 2021 4:01A Dictated by : MICHAEL DUCKWORTH MD This examination was interpreted and the report reviewed and electronically signed by: MICHAEL DUCKWORTH MD on Dec 29 2021 4:12AM EST [id number] Normal [facility] CTA HEAD W IVCONon 2 CTA HEAD W IVCON * * *Final Report* * * DATE OF EXAM: Dec 29 2021 12:39AM [facility] 0022 - CTA HEAD W IVCON / PROCEDURE REASON: Neck trauma, blunt * * * * Physician Interpretation * * * * EXAMINATION: CTA HEAD W IVCON, CTA NECK W IVCON HISTORY: Neck trauma, blunt TECHNIQUE: Spiral high resolution axial images were obtained through the head, neck and superior mediastinum following bolus administration of intravenous contrast for CT angiography. 3D maximum intensity projection images were created, reviewed and archived . MQ: CTAHN_4 Contrast: 75 mL Omnipaque [address] Radiation dose: Integrated Dose-Length Product (DLP) for this visit = 1803 mGy*cm. CT Dose Reduction Employed: Automated exposure control(AEC) and iterative recon COMPARISON: None. RESULT: BRAIN: Evaluation of the individual slices of the CTA demonstrates no evidence of an acute stroke. ASPECT Score = 10 Hemorrhage: No evidence of acute intracranial hemorrhage. ECASS hemorrhagic transformation score: Not Applicable Spot Sign Presence: Not Applicable Spot Sign Number: Not Applicable NECK: Soft tissues: Left facial and submental soft tissue lacerations and hematoma. Lung apices: The visualized lung apices are clear. CT ARTERIOGRAM: Extracranial Circulation: Aortic Arch: There is a normal branching pattern from the aortic arch.. There is no significant stenosis in the proximal brachiocephalic vessels. Carotid Stenosis: Right Common: No significant stenosis. Right Internal Carotid Plaque: No significant plaque formation. Right Internal Carotid Stenosis (% by NASCET Criteria): 0 Left Common: No significant stenosis. Left Internal Carotid Plaque: No significant plaque formation. Left Internal Carotid Stenosis (% by NASCET Criteria): 0 Other: The external carotid arteries and major branch vessels bilaterally are patent without stenosis or evidence of an significant acute injury. Cervical Vertebral Arteries: Patency: Bilateral Dominance: Codominant Intracranial Circulation: Anterior Circulation: Intracranial ICAs, ACAs, and MCAs are normal. Vertebrobasilar Circulation: The vertebral, basilar, and posterior cerebral arteries and their major branch vessels are normal. Inbound Sales Consultant (topogram) images: Unremarkable IMPRESSION: Lower facial/submental soft tissue lacerations and contusions as briefly described above. No acute abnormality of the cervical and intracranial vasculature. Arterial blood flow was measured to detect acute large vessel occlusion by computer aided detection software: Not Performed. Concordance between software and imaging review: Not Applicable. Tank Builder Supervisor: PSCDavid Transcribe Date/Time: Dec 29 2021 1:08A Dictated by : SUKHI RECINOS MD This examination was interpreted and the report reviewed and electronically signed by: SUKHI RECINOS MD on Dec 29 2021 1:14AM EST [id number] Normal [facility] CTA NECK W IVCONon 2 CTA NECK W IVCON * * *Final Report* * * DATE OF EXAM: Dec 29 2021 12:39AM [facility] 0024 - CTA NECK W IVCON / PROCEDURE REASON: Confusion, acute, unexplained * * * * Physician Interpretation * * * * EXAMINATION: CTA HEAD W IVCON, CTA NECK W IVCON HISTORY: Neck trauma, blunt TECHNIQUE: Spiral high resolution axial images were obtained through the head, neck and superior mediastinum following bolus administration of intravenous contrast for CT angiography. 3D maximum intensity projection images were created, reviewed and archived . MQ: CTAHN_4 Contrast: 75 mL Omnipaque [address] Radiation dose: Integrated Dose-Length Product (DLP) for this visit = 1803 mGy*cm. CT Dose Reduction Employed: Automated exposure control(AEC) and iterative recon COMPARISON: None. RESULT: BRAIN: Evaluation of the individual slices of the CTA demonstrates no evidence of an acute stroke. ASPECT Score = 10 Hemorrhage: No evidence of acute intracranial hemorrhage. ECASS hemorrhagic transformation score: Not Applicable Spot Sign Presence: Not Applicable Spot Sign Number: Not Applicable NECK: Soft tissues: Left facial and submental soft tissue lacerations and hematoma. Lung apices: The visualized lung apices are clear. CT ARTERIOGRAM: Extracranial Circulation: Aortic Arch: There is a normal branching pattern from the aortic arch.. There is no significant stenosis in the proximal brachiocephalic vessels. Carotid Stenosis: Right Common: No significant stenosis. Right Internal Carotid Plaque: No significant plaque formation. Right Internal Carotid Stenosis (% by NASCET Criteria): 0 Left Common: No significant stenosis. Left Internal Carotid Plaque: No significant plaque formation. Left Internal Carotid Stenosis (% by NASCET Criteria): 0 Other: The external carotid arteries and major branch vessels bilaterally are patent without stenosis or evidence of an significant acute injury. Cervical Vertebral Arteries: Patency: Bilateral Dominance: Codominant Intracranial Circulation: Anterior Circulation: Intracranial ICAs, ACAs, and MCAs are normal. Vertebrobasilar Circulation: The vertebral, basilar, and posterior cerebral arteries and their major branch vessels are normal. Inbound Sales Consultant (topogram) images: Unremarkable IMPRESSION: Lower facial/submental soft tissue lacerations and contusions as briefly described above. No acute abnormality of the cervical and intracranial vasculature. Arterial blood flow was measured to detect acute large vessel occlusion by computer aided detection software: Not Performed. Concordance between software and imaging review: Not Applicable. Tank Builder Supervisor: FREEDOM Transcribe Date/Time: Dec 29 2021 1:08A Dictated by : SUKHI RECINOS MD This examination was interpreted and the report reviewed and electronically signed by: SUKHI RECINOS MD on Dec 29 2021 1:14AM EST [id number] Normal [facility] Comprehensive metabolic 2000 panelon 12-29-2021 Albumin [Mass/Vol] 4.4 g/dL Normal 3.9-4.9 [facility] Comment on above: Order Comment: Speci men Type: BLOOD SPECIMEN Ordering Facility: [facility] Address: [address] [address] Performed By: #### H STNT #### [facility] CLIA [id number] [address] ALP [Catalytic activity/Vol] 91 U/L Normal 38-113 [facility] Comment on above: Order Comment: Speci men Type: BLOOD SPECIMEN Ordering Facility: [facility] Address: [address] [place] [address] Performed By: #### H STNT #### [facility] CLIA [id number] [address] ALT With P-5'-P [Catalytic activity/Vol] 73 U/L High 10-54 [facility] Comment on above: Order Comment: Speci men Type: BLOOD SPECIMEN Ordering Facility: [facility] Address: [address] [place] [address] Performed By: #### H STNT #### [facility] CLIA [id number] [address] Anion gap [Moles/Vol] 10 mmol/L Normal 9-18 [facility] Comment on above: Order Comment: Speci men Type: BLOOD SPECIMEN Ordering Facility: [facility] Address: [address] [place] [address] Performed By: #### H STNT #### [facility] CLIA [id number] [address] AST With P-5'-P [Catalytic activity/Vol] 106 U/L High 14-40 [facility] Comment on above: Order Comment: Speci men Type: BLOOD SPECIMEN Ordering Facility: [facility] Address: [address] [place] [address] Performed By: #### H STNT #### [facility] CLIA [id number] [address] [place] Bilirubin [Mass/Vol] 0.2 mg/dL Normal 0.2-1.3 [facility] Comment on above: Order Comment: Speci men Type: BLOOD SPECIMEN Ordering Facility: [facility] Address: [address] [place] [address] Performed By: #### H STNT #### [facility] CLIA [id number] [address] [place] Calcium [Mass/Vol] 9.0 mg/dL Normal 8.5-10.2 [facility] Comment on above: Order Comment: Speci men Type: BLOOD SPECIMEN Ordering Facility: [facility] Address: [address] [place] [address] Performed By: #### H STNT #### [facility] CLIA [id number] 1 [place] [address] [place] Chloride [Moles/Vol] 103 mmol/L Normal 97-105 [facility] Comment on above: Order Comment: Speci men Type: BLOOD SPECIMEN Ordering Facility: [facility] Address: [address] [place] [address] Performed By: #### H STNT #### [facility] CLIA [id number] [address] [place] [address] [place] CO2 [Moles/Vol] 29 mmol/L Normal 22-30 [facility] Comment on above: Order Comment: Speci men Type: BLOOD SPECIMEN Ordering Facility: [facility] Address: [address] [place] [address] Performed By: #### H STNT #### [facility] CLIA [id number] 1 [place] [address] [place] Creatinine [Mass/Vol] 1.13 mg/dL Normal 0.73-1.22 [facility] Comment on above: Order Comment: Speci men Type: BLOOD SPECIMEN Ordering Facility: [facility] Address: [address] [place] [address] Performed By: #### H STNT #### [facility] CLIA [id number] [address] [place] ESTIMATED GLOMERULAR FILTRATION RATE 86 mL/min/1.73m??? Normal >=60 [facility] Comment on above: Order Comment: Preston gaitan Type: BLOOD SPECIMEN Ordering Facility: [facility] Address: [address] [place] [address] Result Comment: Tyra mated Glomerular Filtration Rate (eGFR) is calculated using the 2020 CKD-EPI creatinine equation. This equation utilizes serum creatinine, sex, and age as parameters. The creatinine assay has traceable calibration to isotope dilution-mass spectrometry. Refer to KDIGO guidelines for clinical interpretation. In patients with unstable renal function, e.g. those with acute kidney injury, the eGFR may not accurately reflect actual GFR. Performed By: #### H STNT #### [facility] CLIA [id number] [address] [place] [address] [place] Glucose [Mass/Vol] 179 mg/dL High 74-99 [facility] Comment on above: Order Comment: Preston gaitan Type: BLOOD SPECIMEN Ordering Facility: [facility] Address: [address] [place] [address] Result Comment: The [place] [employer] (ADA) provides guidance for cutoff values for fasting glucose and random glucose. The ADA defines fasting as no caloric intake for at least 8 hours. Fasting plasma glucose results between 100 to 125 mg/dL indicate increased risk for diabetes (prediabetes). Fasting plasma glucose results greater than or equal to 126 mg/dL meet the criteria for diagnosis of diabetes. In the absence of unequivocal hyperglycemia, results should be confirmed by repeat testing. In a patient with classic symptoms of hyperglycemia or hyperglycemic crisis, random plasma glucose results greater than or equal to 200 mg/dL meet the criteria for diagnosis of diabetes. Reference: Standards of Medical Care in Diabetes 2016, [employer]. Diabetes Care. 2016.39(Suppl 1). Performed By: #### H STNT #### [facility] CLIA [id number] 1 [place] [address] [place] Potassium [Moles/Vol] 3.3 mmol/L Low 3.7-5.1 [facility] Comment on above: Order Comment: Preston gaitan Type: BLOOD SPECIMEN Ordering Facility: [facility] Address: [address] Performed By: #### H STNT #### [facility] CLIA [id number] [address] Protein [Mass/Vol] 7.0 g/dL Normal 6.3-8.0 [facility] Comment on above: Order Comment: Speci men Type: BLOOD SPECIMEN Ordering Facility: [facility] Address: [address] [place] [address] Performed By: #### H STNT #### [facility] CLIA [id number] [address] Sodium [Moles/Vol] 142 mmol/L Normal 136-144 [facility] Comment on above: Order Comment: Speci men Type: BLOOD SPECIMEN Ordering Facility: [facility] Address: [address] [place] [address] Performed By: #### H STNT #### [facility] CLIA [id number] [address] Urea nitrogen [Mass/Vol] 13 mg/dL Normal 9-24 [facility] Comment on above: Order Comment: Speci men Type: BLOOD SPECIMEN Ordering Facility: [facility] Address: [address] [place] [address] Performed By: #### H STNT #### [facility] CLIA [id number] [address] ED NOTEon 12-29-2021 ED NOTE HNO ID: [id number] Author: Juan David Vázquez RN Service: Emergency Medicine Author Type: Registered Nurse Type: ED Notes Filed: 12/29/2021 4:52 AM Note Text: Catheter attempted as instructed by Provider. Coude Johns used but unable to advance into position due to resistance. Pt also not cooperating with procedure even after explaining it to him, and continues to tense up making it even more difficult to advance. Attempt stopped due to this, and minor bleeding noted after procedure attempt. Normal [facility] ED NOTE HNO ID: [id number] Author: Juan David Vázquez RN Service: Emergency Medicine Author Type: Registered Nurse Type: ED Notes Filed: 12/29/2021 1:57 AM Note Text: Weight applied for traction at this time Normal [facility] ED NOTE HNO ID: [id number] Author: Juan David Vázquez RN Service: Emergency Medicine Author Type: Registered Nurse Type: ED Notes Filed: 12/29/2021 1:55 AM Note Text: Nagi being placed in left lower leg for traction to be applied Normal [facility] ED NOTE HNO ID: [id number] Author: Juan David Vázquez RN Service: Emergency Medicine Author Type: Registered Nurse Type: ED Notes Filed: 12/29/2021 1:53 AM Note Text: Ortho attempting to put Right Wrist back in place, but pt needing additional sedation again. Normal [facility] ED NOTE HNO ID: [id number] Author: Juan David Vázquez RN Service: Emergency Medicine Author Type: Registered Nurse Type: ED Notes Filed: 12/29/2021 1:52 AM Note Text: Hip successfully back in place per ortho but will be confirmed later with XRAY [facility] ED NOTE HNO ID: [id number] Author: Juan David Vázquez RN Service: Emergency Medicine Author Type: Registered Nurse Type: ED Notes Filed: 12/29/2021 1:50 AM Note Text: Normal [facility] ED NOTE HNO ID: [id number] Author: Juan David Vázquez RN Service: Emergency Medicine Author Type: Registered Nurse Type: ED Notes Filed: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 By: #### T SCR ####[facility] [id number] [address] TYPE AND SCREEN EXPIRATION 01/01/2022 23:59 Normal [facility] Comment on above: Order Comment: Speci men Type: BLOOD SPECIMENOrdering Facility: [facility] Address: [address] [place] [address] Performed By: #### T SCR ####[facility] [id number] [address] Urinalysis complete panel (U )on 12-29-2021 Bacteria LM.HPF (Urine sed) [#/Area] None Seen Normal None Seen [facility] Comment on above: Order Comment: Speci men Type: URINE SPECIMEN Ordering Facility: [facility] Address: [address] [place] [address] Performed By: #### 2 4356-8 #### [facility] CLIA [id number] [address] Bilirubin Ql (U) Negative Normal Negative [facility] Comment on above: Order Comment: Speci men Type: URINE SPECIMEN Ordering Facility: [facility] Address: [address] [place] [address] Performed By: #### 2 4356-8 #### [facility] CLIA [id number] [address] Clarity (Unsp spec) Turbid Abnormal Clear [facility] Comment on above: Order Comment: Speci men Type: URINE SPECIMEN Ordering Facility: [facility] Address: [address] [place] [address] Performed By: #### 2 4356-8 #### [facility] CLIA [id number] [address] [place] [address] Color (U) Yellow Normal Yellow [facility] Comment on above: Order Comment: Speci men Type: URINE SPECIMEN Ordering Facility: [facility] Address: [address] [place] [address] Performed By: #### 2 4356-8 #### [facility] CLIA [id number] [address] Epithelial cells LM.HPF (Urine sed) [#/Area] 3.3 /[HPF] Normal [facility] Comment on above: Order Comment: Speci men Type: URINE SPECIMEN Ordering Facility: [facility] Address: [address] [place] [address] Performed By: #### 2 4356-8 #### [facility] CLIA [id number] [address] Glucose Test strip (U) [Mass/Vol] Negative Normal Negative [facility] Comment on above: Order Comment: Speci men Type: URINE SPECIMEN Ordering Facility: [facility] Address: [address] [place] [address] Performed By: #### 2 4356-8 #### [facility] CLIA [id number] [address] Hemoglobin Ql (U) Large Abnormal Negative [facility] Comment on above: Order Comment: Speci men Type: URINE SPECIMEN Ordering Facility: [facility] Address: [address] [place] [address] Performed By: #### 2 4356-8 #### [facility] CLIA [id number] [address] Hyaline casts (Urine sed) [#/Area] 1-3 /LPF Abnormal 0 /LPF [facility] Comment on above: Order Comment: Speci men Type: URINE SPECIMEN Ordering Facility: [facility] Address: [address] [place] [address] Performed By: #### 2 4356-8 #### [facility] CLIA [id number] [address] Ketones Ql (U) Negative Normal Negative [facility] Comment on above: Order Comment: Speci men Type: URINE SPECIMEN Ordering Facility: [facility] Address: [address] [place] [address] Performed By: #### 2 4356-8 #### [facility] CLIA [id number] [address] Leukocyte esterase Test strip Ql (U) Negative Normal Negative [facility] Comment on above: Order Comment: Speci men Type: URINE SPECIMEN Ordering Facility: [facility] Address: [address] [place] [address] Performed By: #### 2 4356-8 #### [facility] CLIA [id number] [address] Nitrite Ql (U) Negative Normal Negative [facility] Comment on above: Order Comment: Speci men Type: URINE SPECIMEN Ordering Facility: [facility] Address: [address] [place] [address] Performed By: #### 2 4356-8 #### [facility] CLIA [id number] [address] pH (U) 6.0 [pH] Normal 5.0-8.0 [facility] Comment on above: Order Comment: Speci men Type: URINE SPECIMEN Ordering Facility: [facility] Address: [address] [place] [address] Performed By: #### 2 4356-8 #### [facility] CLIA [id number] [address] Protein (U) [Mass/Vol] 30 mg/dL Abnormal Negative [facility] Comment on above: Order Comment: Speci men Type: URINE SPECIMEN Ordering Facility: [facility] Address: [address] [place] [address] Performed By: #### 2 4356-8 #### [facility] CLIA [id number] [address] RBC LM.HPF (Urine sed) [#/Area] 0-3 /HPF Normal 0-3 /HPF [facility] Comment on above: Order Comment: Speci men Type: URINE SPECIMEN Ordering Facility: [facility] Address: [address] [place] [address] Performed By: #### 2 4356-8 #### [facility] CLIA [id number] [address] Specific gravity (U) [Rel density] 1.043 High 1.005-1.030 [facility] Comment on above: Order Comment: Speci men Type: URINE SPECIMEN Ordering Facility: [facility] Address: [address] [place] [address] Performed By: #### 2 4356-8 #### [facility] CLIA [id number] [address] Urobilinogen Ql (U) 1.0 EU/dL Normal 0.2-1.0 EU/dL [facility] Comment on above: Order Comment: Speci men Type: URINE SPECIMEN Ordering Facility: [facility] Address: [address] [place] [address] Performed By: #### 2 4356-8 #### [facility] CLIA [id number] [address] WBC LM.HPF (Urine sed) [#/Area] 0-5 /HPF Normal 0-5 /HPF [facility] Comment on above: Order Comment: Speci men Type: URINE SPECIMEN Ordering Facility: [facility] Address: [address] [place] [address] Performed By: #### 2 4356-8 #### [facility] CLIA [id number] [address] OF [facility] XR CHEST 1V FRONTALon 2021 XR CHEST 1V FRONTAL * * *Final Report* * * DATE OF EXAM: Dec 29 2021 12:39AM AKX 5290 - XR CHEST 1V FRONTAL / PROCEDURE REASON: Chest trauma, blunt * * * * Physician Interpretation * * * * EXAMINATION: CHEST RADIOGRAPH (SINGLE VIEW AP OR PA) CLINICAL HISTORY: Chest trauma, blunt MQ: XC1_5 Comparison: None. RESULT: Lines, tubes, and devices: None. Lungs and pleura: Low lung volumes. Crowding of the pulmonary vascularity compatible with supine technique. No pulmonary edema. No appreciable pleural effusion or pneumothorax within limits of supine technique. Cardiomediastinal silhouette: Within normal limits accounting for AP supine technique. Other: Displaced fractures of the left third, fourth, and sixth lateral ribs. Possible fracture of the right seventh anterior rib. IMPRESSION: Rib fractures as described. No other acute radiographic abnormality within limits of supine technique. Tank Builder Supervisor: PSCB Transcribe Date/Time: Dec 29 2021 12:42A Dictated by : MICHELLE ARAUJO MD This examination was interpreted and the report reviewed and electronically signed by: MICHELLE ARAUJO MD on Dec 29 2021 12:44AM EST [id number] Normal [facility] XR FEMUR 2V AP/LAT LTon 03-0 XR FEMUR 2V AP/LAT LT * * *Final Report* * * DATE OF EXAM: Dec 29 2021 3:22AM AKX 5332 - XR FEMUR 2V AP/LAT LT / PROCEDURE REASON: Fracture, femur * * * * Physician Interpretation * * * * EXAMINATION: XR FEMUR 2V AP/LAT LT, XR TIBIA FIBULA 2V AP/LAT LT, XR FOOT 3V AP/LAT/OBL LT HISTORY: FRACTURE / POST-REDUCTION (accession [id number]), FRACTURE / POST-REDUCTION (accession [id number]), LEFT FOOT FRACTURE (accession [id number]) Fracture, femur. COMPARISON: CT pelvis same day, pelvis radiograph same day TECHNIQUE: XR FEMUR 2V AP/LAT LT, XR TIBIA FIBULA 2V AP/LAT LT, XR FOOT 3V AP/LAT/OBL LT Laterality: LEFT Number of different views (projections): 2 (accession [id number]), 2 (accession [id number]), 3 (accession [id number]) M: XB_1 FINDINGS: Femur: Left acetabular roof fracture reidentified. No additional fracture in the femur. Tib-fib: Overlying external fixator. Vertical lucencies in the proximal fibula probably related to nondisplaced fracture. Foot: Nondisplaced fracture at the base of the fifth metatarsal. Severely comminuted calcaneal fracture. IMPRESSION: Severely comminuted calcaneal fracture. Nondisplaced fracture at base of fifth metatarsal. Probable nondisplaced proximal fibular fracture. Left acetabular roof fracture. No additional femur fracture. Tank Builder Supervisor: PSCB Transcribe Date/Time: Dec 29 2021 8:01A Dictated by : ALBERT RAMACHANDRAN MD This examination was interpreted and the report reviewed and electronically signed by: ALBERT RAMACHANDRAN MD on Dec 29 2021 8:07AM EST [id number] Normal [facility] XR FOOT 3V AP/LAT/OBL LTon 0 12-29-2021 XR FOOT 3V AP/LAT/OBL LT * * *Final Repo rt* * * DATE OF EXAM: Dec 29 2021 5:04AM AKX 5336 - XR FOOT 3V AP/LAT/OBL LT / PROCEDURE REASON: Fracture, foot * * * * Physician Interpretation * * * * EXAMINATION: XR FEMUR 2V AP/LAT LT, XR TIBIA FIBULA 2V AP/LAT LT, XR FOOT 3V AP/LAT/OBL LT HISTORY: FRACTURE / POST-REDUCTION (accession [id number]), FRACTURE / POST-REDUCTION (accession [id number]), LEFT FOOT FRACTURE (accession [id number]) Fracture, femur. COMPARISON: CT pelvis same day, pelvis radiograph same day TECHNIQUE: XR FEMUR 2V AP/LAT LT, XR TIBIA FIBULA 2V AP/LAT LT, XR FOOT 3V AP/LAT/OBL LT Laterality: LEFT Number of different views (projections): 2 (accession [id number]), 2 (accession [id number]), 3 (accession [id number]) M: XB_1 FINDINGS: Femur: Left acetabular roof fracture reidentified. No additional fracture in the femur. Tib-fib: Overlying external fixator. Vertical lucencies in the proximal fibula probably related to nondisplaced fracture. Foot: Nondisplaced fracture at the base of the fifth metatarsal. Severely comminuted calcaneal fracture. IMPRESSION: Severely comminuted calcaneal fracture. Nondisplaced fracture at base of fifth metatarsal. Probable nondisplaced proximal fibular fracture. Left acetabular roof fracture. No additional femur fracture. Tank Builder Supervisor: PSCB Transcribe Date/Time: Dec 29 2021 8:01A Dictated by : ALBERT RAMACHANDRAN MD This examination was interpreted and the report reviewed and electronically signed by: ALBERT RAMACHANDRAN MD on Dec 29 2021 8:07AM EST [id number] Normal [facility] XR HAND 3V PA/LAT/OBL RTon 0 12-29-2021 XR HAND 3V PA/LAT/OBL RT * * *Final Repo rt* * * DATE OF EXAM: Dec 29 2021 2:23AM AKX 5346 - XR HAND 3V PA/LAT/OBL RT / PROCEDURE REASON: Post-operative / post-procedure assessment, asymptomatic * * * * Physician Interpretation * * * * EXAMINATION: XR WRIST 3V PA/LAT/OBL RT, XR HAND 3V PA/LAT/OBL RT CLINICAL HISTORY: Fracture, wrist Technique: XR WRIST 3V PA/LAT/OBL RT, XR HAND 3V PA/LAT/OBL RT -- Comparison: Right wrist radiographs from earlier today. RESULT: A cast is present which obscures fine osseous detail evaluation. Right wrist: Fracture: There is improved alignment of the comminuted fracture of the base of the right first metacarpal without residual angulation or displacement. Improved alignment of the right distal radius and ulnar fractures. There is mild residual anterior displacement of the distal radial fracture. Small avulsion fracture fragment along the dorsum of the right breast is again seen possibly related to triquetrum fracture. Alignment: No dislocation. Mineralization: Normal. Soft tissues: Soft tissue swelling is seen surrounding the right wrist. Right hand: Fracture: There is an acute, oblique fracture through the radial side of the proximal portion of the proximal phalanx of the right fifth finger with mild displacement. There is improved alignment of the comminuted fracture of the base of the right first metacarpal without residual angulation or displacement. Improved alignment of the right distal radius and ulnar fractures. There is mild residual anterior displacement of the distal radial fracture. Small avulsion fracture fragment along the dorsum of the right breast is again seen possibly related to triquetrum fracture. Alignment: No dislocation. Mineralization: Normal. Soft tissues: Soft tissue swelling is seen surrounding the right wrist. IMPRESSION: 1. Improved alignment of the right first metacarpal, distal radius and ulna fractures. 2. Unchanged fracture through the proximal right fifth finger and triquetrum. Tank Builder Supervisor: PSYCHIATRIC Transcribe Date/Time: Dec 29 2021 2:52A Dictated by : DEBORAH MORIN MD This examination was interpreted and the report reviewed and electronically signed by: DEBORAH MORIN MD on Dec 29 2021 2:59AM EST [id number] Normal [facility] XR PELVIS 1V APon 12-29-2021 XR PELVIS 1V AP * * *Final Report* * * DATE OF EXAM: Dec 29 2021 2:23AM AKX 5239 - XR PELVIS 1V AP / PROCEDURE REASON: Pelvic fx, follow up * * * * Physician Interpretation * * * * EXAMINATION: XR PELVIS 1V AP CLINICAL HISTORY: Pelvic fx, follow up Technique: XR PELVIS 1V AP -- Comparison: Pelvis radiograph from 12/29/2021. RESULT: Residual contrast material is seen in the urinary bladder. Fracture: Avulsion fracture fragment lying along the left superior acetabular rim is again seen. Alignment: There has been relocation of the left hip joint dislocation. Mineralization: Normal. Soft tissues: No soft tissue swelling. IMPRESSION: Status post relocation of the left hip joint dislocation with a small avulsion fracture fragment lying along the left superior acetabular rim. Tank Builder Supervisor: PSYCHIATRIC Transcribe Date/Time: Dec 29 2021 2:50A Dictated by : DEBORAH MORIN MD This examination was interpreted and the report reviewed and electronically signed by: DEBORAH MORIN MD on Dec 29 2021 2:52AM EST [id number] Normal [facility] XR PELVIS 1V AP * * *Final Report* * * DATE OF EXAM: Dec 29 2021 12:39AM AKX 5239 - XR PELVIS 1V AP / PROCEDURE REASON: Pelvic fx, known or suspected * * * * Physician Interpretation * * * * EXAMINATION: XR PELVIS 1V AP CLINICAL HISTORY: Pelvic fx, known or suspected Comparison: None RESULT: Bones: Superior left femoral dislocation with suspected displaced posterior acetabular fracture. Soft tissues: No radiopaque foreign body. IMPRESSION: Dislocated left femur likely associated with posterior acetabular fracture. CT is recommended for further evaluation. Tank Builder Supervisor: PSCDavid Transcribe Date/Time: Dec 29 2021 12:42A Dictated by : DANA CHEN MD This examination was interpreted and the report reviewed and electronically signed by: DANA CHEN MD on Dec 29 2021 12:44AM EST [id number] Normal [facility] XR TIBIA FIBULA 2V AP/LAT LT on 12-29-2021 XR TIBIA FIBULA 2V AP/LAT LT * * *Final Report* * * DATE OF EXAM: Dec 29 2021 3:22AM AKX 5265 - XR TIBIA FIBULA 2V AP/LAT LT / PROCEDURE REASON: Fracture, tib/fib * * * * Physician Interpretation * * * * EXAMINATION: XR FEMUR 2V AP/LAT LT, XR TIBIA FIBULA 2V AP/LAT LT, XR FOOT 3V AP/LAT/OBL LT HISTORY: FRACTURE / POST-REDUCTION (accession [id number]), FRACTURE / POST-REDUCTION (accession [id number]), LEFT FOOT FRACTURE (accession [id number]) Fracture, femur. COMPARISON: CT pelvis same day, pelvis radiograph same day TECHNIQUE: XR FEMUR 2V AP/LAT LT, XR TIBIA FIBULA 2V AP/LAT LT, XR FOOT 3V AP/LAT/OBL LT Laterality: LEFT Number of different views (projections): 2 (accession [id number]), 2 (accession [id number]), 3 (accession [id number]) M: XB_1 FINDINGS: Femur: Left acetabular roof fracture reidentified. No additional fracture in the femur. Tib-fib: Overlying external fixator. Vertical lucencies in the proximal fibula probably related to nondisplaced fracture. Foot: Nondisplaced fracture at the base of the fifth metatarsal. Severely comminuted calcaneal fracture. IMPRESSION: Severely comminuted calcaneal fracture. Nondisplaced fracture at base of fifth metatarsal. Probable nondisplaced proximal fibular fracture. Left acetabular roof fracture. No additional femur fracture. Tank Builder Supervisor: [facility] CENTERStupil Transcribe Date/Time: Dec 29 2021 8:01A Dictated by : ALBERT RAMACHANDRAN MD This examination was interpreted and the report reviewed and electronically signed by: ALBERT RAMACHANDRAN MD on Dec 29 2021 8:07AM EST [id number] Normal [facility] XR WRIST 2V PA/LAT RTon XR WRIST 2V PA/LAT RT * * *Final Report* * * DATE OF EXAM: Dec 29 2021 12:39AM AKX 5294 - XR WRIST 2V PA/LAT RT / PROCEDURE REASON: Fracture, wrist * * * * Physician Interpretation * * * * EXAMINATION: XR WRIST 2V PA/LAT RT CLINICAL HISTORY: Fracture, wrist, Wrist pain, traumatic Comparison: None RESULT: Bones: Comminuted intra-articular fracture of the distal radius with shaft width dorsal displacement of the distal fracture fragment. Acute fracture of the distal ulna. Acute, comminuted fracture of the proximal first metacarpal. Calcification at the dorsum of the wrist on lateral view, possibly related to a pisiform fracture. Soft tissues: Soft tissue swelling of the hand and wrist. IMPRESSION: Acute fractures of the distal radius, distal ulna, proximal first metacarpal and possibly of the pisiform. Tank Builder Supervisor: PSCB Transcribe Date/Time: Dec 29 2021 12:44A Dictated by : DANA CHEN MD This examination was interpreted and the report reviewed and electronically signed by: DANA CHEN MD on Dec 29 2021 12:48AM EST [id number] Normal [facility] XR WRIST 3V PA/LAT/OBL RTon 12-29-2021 XR WRIST 3V PA/LAT/OBL RT * * *Final Report* * * DATE OF EXAM: Dec 29 2021 2:23AM AKX 5271 - XR WRIST 3V PA/LAT/OBL RT / PROCEDURE REASON: Fracture, wrist * * * * Physician Interpretation * * * * EXAMINATION: XR WRIST 3V PA/LAT/OBL RT, XR HAND 3V PA/LAT/OBL RT CLINICAL HISTORY: Fracture, wrist Technique: XR WRIST 3V PA/LAT/OBL RT, XR HAND 3V PA/LAT/OBL RT -- Comparison: Right wrist radiographs from earlier today. RESULT: A cast is present which obscures fine osseous detail evaluation. Right wrist: Fracture: There is improved alignment of the comminuted fracture of the base of the right first metacarpal without residual angulation or displacement. Improved alignment of the right distal radius and ulnar fractures. There is mild residual anterior displacement of the distal radial fracture. Small avulsion fracture fragment along the dorsum of the right breast is again seen possibly related to triquetrum fracture. Alignment: No dislocation. Mineralization: Normal. Soft tissues: Soft tissue swelling is seen surrounding the right wrist. Right hand: Fracture: There is an acute, oblique fracture through the radial side of the proximal portion of the proximal phalanx of the right fifth finger with mild displacement. There is improved alignment of the comminuted fracture of the base of the right first metacarpal without residual angulation or displacement. Improved alignment of the right distal radius and ulnar fractures. There is mild residual anterior displacement of the distal radial fracture. Small avulsion fracture fragment along the dorsum of the right breast is again seen possibly related to triquetrum fracture. Alignment: No dislocation. Mineralization: Normal. Soft tissues: Soft tissue swelling is seen surrounding the right wrist. IMPRESSION: 1. Improved alignment of the right first metacarpal, distal radius and ulna fractures. 2. Unchanged fracture through the proximal right fifth finger and triquetrum. Tank Builder Supervisor: [facility] MEDICAL CENTERDavid Transcribe Date/Time: Dec 29 2021 2:52A Dictated by : DEBORAH MORIN MD This examination was interpreted and the report reviewed and electronically signed by: DEBORAH MORIN MD on Dec 29 2021 2:59AM EST [id number] Normal [facility] aPTT PPPon 12-29-2021 aPTT Coag (PPP) [Time] 23.8 s Normal 23.0-32.4 [facility] Comment on above: Order Comment: Speci men Type: BLOOD SPECIMEN Ordering Facility: [facility] Address: [address] [place] [id number] Performed By: #### 1 [id number], [id number] #### [facility] CLIA [id number] [address] [place] [address] [facility] Vital Signs Date Time Vital Sign Value Performing Clinician Facility 04-26-2025 17:25-0400 Body temperature 98.2 [degF] No Primary Care Physician [facility] 04-26-2025 17:25-0400 Diastolic blood pressure 97 mm[Hg] No Primary Care Physician [facility] 04-26-2025 17:25-0400 Heart rate 66 /min No Primary Care Physician [facility] 04-26-2025 17:25-0400 Respiratory rate 17 /min No Primary Care Physician [facility] 04-26-2025 17:25-0400 SaO2% (BldA) [Mass fraction] 98 % No Primary Care Physician [facility] 04-26-2025 17:25-0400 Systolic blood pressure 130 mm[Hg] No Primary Care Physician [facility] 04-26-2025 17:24-0400 Body height 180.34 cm No Primary Care Physician [facility] 04-26-2025 12:02-0400 Body mass index (BMI) [Ratio] 31.4 kg/m2 No Primary Care Physician [facility] 04-26-2025 12:02-0400 Body weight 102.3 kg No Primary Care Physician [facility] 04-26-2025 00:37-0400 Diastolic blood pressure 80 mm[Hg] Kylee Milton DO Work Phone: [facility] 04-26-2025 00:37-0400 Heart rate 80 /min Kyleekhadar Milton DO Work Phone: [facility] 04-26-2025 00:37-0400 Respiratory rate 16 /min Kyleekhadar Milton DO Work Phone: [facility] 04-26-2025 00:37-0400 SaO2% (BldA) [Mass fraction] 97 % Kylee Milton DO Work Phone: [facility] 04-26-2025 00:37-0400 Systolic blood pressure 124 mm[Hg] Kylee Andrews-Marely DO Work Phone: [facility] 04-25-2025 15:53-0400 Body temperature 99.39 [degF] Kylee Andrews-Marely DO Work Phone: [facility] 04-25-2025 15:53-0400 Body weight 72.58 kg Kylee Milton DO Work Phone: [facility] 01-27-2022 08:26-0400 Body height 182.9 cm [facility] Work Phone: [facility] 01-27-2022 08:26-0400 Body weight 107.05 kg [facility] Work Phone: [facility] 01-27-2022 08:26-0400 Respiratory rate 18 /min [facility] Work Phone: [facility] Encounters Encounter Date Encounter Type Care Provider Facility Start: 04-26-2025 Evaluation and management of inpatient Dr. Olivia Xie MD -[facility] Work Phone: Start: 04-26-2025 Non-patient / Non-visit Dr. Olivia blake MD -[facility] Work Phone: Start: 04-25-2025 End: 04-26-2025 Emergency department patient visit Kylee Milton DO Work Phone: [facility] Comment on above: Opioid overdose, acc idental or unintentional, initial encounter (HCC) (Primary Dx) Start: 02-08-2022 Telephone encounter Leonard rosa MD Work Phone: [facility] Comment on above: Wheelchair Follow-up (Certification of Medical Necessity Need) Start: 01-27-2022 End: 01-27-2022 Patient encounter [facility] Work Phone: [facility] Comment on above: Closed displaced fra cture of left acetabulum with routine healing, unspecified portion of acetabulum, subsequent encounter (Primary Dx); Closed displaced fracture of left calcaneus with routine healing, unspecified portion of calcaneus, subsequent encounter; Closed displaced fracture of base of first metacarpal bone of right hand with routine healing, unspecified fracture morphology, subsequent encounter; Other closed fracture of distal end of right radius with routine healing, subsequent encounter; Closed fracture of left foot, initial encounter Procedures Date Procedure Procedure Detail Performing Clinician Start: 04-26-2025 Methadone measurement, urine No Primary Care Physician Start: 04-26-2025 Estimated creatinine clearance No Primary Care Physician Start: 04-25-2025 Drug tst prsmv instr mnt chem analyzers pr date Kylee Tolentino [employer] Work Phone: Start: 04-25-2025 Urnls dip stick/tabl et reagent auto microscopy [employer]e [employer] Work Phone: Start: 04-25-2025 Comprehensive metabo lic panel Kylee Tolentino [employer] Work Phone: Start: 04-25-2025 Drug test def 1-7 classes Kylee Tolentino [employer] Work Phone: Start: 04-25-2025 SARS-CoV-2 (COVID-19 ) Ag [Presence] in Respiratory specimen by Rapid immunoassay Kylee Tolentino [employer] Work Phone: Start: 04-25-2025 Ecg routine ecg w/le ast 12 lds trcg only w/o i&r Kylee Tolentino [employer] Work Phone: Start: 12-29-2021 Antibody screen Comment on above: Order Comment: Speci men Type: BLOOD SPECIMENOrdering Facility: [facility] Address: [address] [place] [address] Performed By: #### T SCR ####[facility] [id number] [place] [id number] [facility] Plan of Treatment Date Care Activity Detail Author Start: 2059 RSV Immunization for Adults (1 - 1-dose 75+ series) RSV Immunization for Adults (1 - 1-dose 75+ series) [facility] Start: 2034 Zoster Vaccines (1 of 2) Zoste r Vaccines (1 of 2) [facility] Start: 12-30-2031 DTaP/Tdap/Td Vaccine s (2 - Td or Tdap) DTaP/Tdap/Td Vaccines (2 - Td or Tdap) [facility] Start: 12-30-2031 Urine microalbumin profile DTAP,TDAP,TD (2 - Td or Tdap) [facility] Start: 07-01-2025 Influenza vaccination Influenz a Vaccine (Season Ended) [facility] Start: 04-26-2025 Following clinical pathway protocol [facility] Start: 04-26-2025 Assessment of risk o f venous thromboembolism [facility] Start: 04-26-2025 Inhalation therapy procedure [facility] Start: 04-26-2025 Provision of activit y privileges [facility] Start: 04-26-2025 [facility] Start: 04-26-2025 Admission procedure [facility] Start: 04-26-2025 Verification routine [facility] Start: 07-01-2024 COVID-19 Vaccine ( season) COVID-19 Vaccine ( season) [facility] Start: 07-01-2022 Influenza vaccination INFLUENZ A (Season Ended) [facility] Start: 07-01-2021 Influenza vaccination INFLUENZA (#1) [facility] Start: 2019 LIPID SCREEN LIPID SCREEN [facility] Start: 2003 Hepatitis B Vaccines (1 of 3 - 19+ 3-dose series) Hepatitis B Vaccines (1 of 3 - 19+ 3-dose series) [facility] Start: 2003 Pneumococcal Vaccine : Pediatrics (0 to 5 Years) and At-Risk Patients (6 to 49 Years) (1 of 2 - PCV) Pneumococcal Vaccine: Pediatrics (0 to 5 Years) and At-Risk Patients (6 to 49 Years) (1 of 2 - PCV) [facility] Start: 2002 HEPATITIS C SCREENING HEPATITIS C [facility] Start: 2002 Hepatitis C screening Hepatitis C [facility] Start: 2002 HIV SCREENING HIV SCREENING [facility] Start: 1997 Varicella vaccination Varicell a Vaccines (1 of 2 - 13+ 2-dose series) [facility] Start: 1996 Adult depression screening assessment DEPRESSION SCREENING [facility] Start: 1989 COVID-19 VACCINE (1) COVID-19 VACCIN E (1) [facility] Start: 1985 MMR Vaccines (1 of 1 - Standard series) MMR Vaccines (1 of 1 - Standard series) [facility] Start: 1984 HIV screening HIV Screening [facility] Start: 1984 Lipid panel Lipid Panel [facility] Ct lower extremity w /o contrast material CT FOOT WO IVCON LT Radiology Routine Closed fracture of left foot, initial encounter Ordered: 01/27/2022 [facility] Work Phone: Comment on above: Ordered: 01/27/2022 End: 02-26-2023 Radiologic examination pelvis 1/2 views XR PELVIS 1V AP Radiology Routine Closed displaced fracture of left acetabulum with routine healing, unspecified portion of acetabulum, subsequent encounter 1 Occurrences starting 01/27/2022 until 02/26/2023 [facility] Work Phone: Comment on above: 1 Occurrences starti ng 01/27/2022 until 02/26/2023 End: 02-26-2023 XR CALCANEUS 2V AXIAL/LAT LEFT XR CALCANEUS 2V AXIAL/LAT LEFT Radiology Routine Closed displaced fracture of left calcaneus with routine healing, unspecified portion of calcaneus, subsequent encounter 1 Occurrences starting 01/27/2022 until 02/26/2023 [facility] Work Phone: Comment on above: 1 Occurrences starti ng 01/27/2022 until 02/26/2023 End: 02-26-2023 XR HAND GENERAL 3V PA/LAT/OBL RIGHT XR HAND GENERAL 3V PA/LAT/OBL RIGHT Radiology Routine Closed displaced fracture of base of first metacarpal bone of right hand with routine healing, unspecified fracture morphology, subsequent encounter 1 Occurrences starting 01/27/2022 until 02/26/2023 [facility] Work Phone: Comment on above: 1 Occurrences starti ng 01/27/2022 until 02/26/2023 End: 02-26-2023 XR WRIST GENERAL 3V PA/LAT/OBL RIGHT XR WRIST GENERAL 3V PA/LAT/OBL RIGHT Radiology Routine Other closed fracture of distal end of right radius with routine healing, subsequent encounter 1 Occurrences starting 01/27/2022 until 02/26/2023 [facility] Work Phone: Comment on above: 1 Occurrences starti ng 01/27/2022 until 02/26/2023 [facility] Immun[facility] Immunization Date Immunization Notes Care Provider Deepika johnson 12-29-2021 tetanus toxoid, redu martha diphtheria toxoid, and acellular pertussis vaccine, adsorbed [facility] Work Phone: [facility] Payers Date Payer Category Payer Medicaid [place] [employer] [facility] MEDICAID [id number] 2019-Present [phone] [address] [place] [address] Medicaid [id number] Social History Date Type Detail Facility Start: 06-03-2011 End: 04-26-2025 Tobacco smoking status NHIS Smokes tobacco daily [facility] Start: 06-03-2011 End: 04-25-2025 Cigarettes smoked current (pack per day) - Reported 1 [facility] Start: 06-03-2011 Tobacco use and exposure Smoke less tobacco non-user [facility] Start: 01-27-2022 Alcohol intake Not Asked Taya quintanilla [facility] Start: 1984 Sex Assigned At Not on file C [facility] Start: 01-17-2022 End: 01-27-2022 Exposure to SARS-CoV-2 (event) Not sure [facility] Start: 1984 Sex Assigned At Male C [facility] History of tobacco use Cigarette Smoker S [facility] Start: 04-25-2025 Alcoholic beverage intake Ex-drinker (finding) [facility] Start: 04-25-2025 Alcohol Use Disorder Identification Test - Consumption [AUDIT-C] [facility] How often to you hav e a drink containing alcohol? Never [facility] How many standard dr inks containing alcohol do you have on a typical day? Patient does not drink [facility] Start: 05-31-2022 Sex Male (finding) [facility] Medical Equipment Procedure Code Equipment Code Equipment Original Text Equipment Identifier Dates 3.5mm Spring Plt 2 Hole-Stl [id number] Start: 01-01-2022 Plate Stainless Steel 78x10.2x2.7mm Bone 6 Hole Low Profile Reconstruction - [id number] Start: 01-01-2022 Screw Lcp Dcp 2. 7mm Stainless Steel 40mm Bone Self Tapping Mini Fragment - [id number] Start: 01-01-2022 Screw Lcp 3.5mm Stainless Steel 18mm Bone Self Tapping Nonsterile Cortical - [id number] Start: 01-01-2022 Screw Lc-Dcp Dcp 3.5mm 6mm Full Thread Stainless Steel 34mm Bone Self - [id number] Start: 01-01-2022 Screw Dcp Lc-Dcp 3.5mm 6mm Full Thread Hexagon Stainless Steel 46mm Bone - [id number] Start: 01-01-2022 Screw Dcp Lc-Dcp 3.5mm Stainless Steel 38mm Bone Self Tapping Hexagonal - [id number] Start: 01-01-2022 Screw Lc-Dcp Dcp 3.5mm 6mm Full Thread Stainless Steel 36mm Bone Self - [id number] Start: 01-01-2022 Functional Status Date Assessment Result Facility 04-26-2025 Functional status Activity Ability Indepe ndent [facility] Work Phone: [facility] Mental Status Date Assessment Result Facility 04-26-2025 Cognitive function Voice/Name [facility] Work Phone: Clinical Notes 12-29-2021 to 04-26-2025 Note Date & Type Note Facility 04-26-2025 Discharge summary Note Date/Time April 26, 2025 3:56pm [facility] Medical Records Department [address] [place] [address] Emergency Department Summary 04/26/25 MR#: [id number] Acct: [id number] Name: SILVIO BRIZUELA Rep #:[id number] : 1985 39 From: [place] VILLANUEVA PCP: Care Physician,No Primary Status :ADM IN Location: [facility] [id number] HPI <KAY Davidson - Last Filed: 04/26/25 14:41> History of Present Illness Chief Complaint: Substance Abuse Narrative Narrative: Patient presenting today requesting to detox from opioids. He reports that he has been using opioids for many years and primarily takes Percocets that he buysoff the street as well as fentanyl which he snorts. He denies any IV drug use. He is unable to quantify how much he uses in a day but he last used yesterday. He is starting to feel like he is withdrawing. He reports stomach irritation and feeling irritable. He denies any other substance use. He denies having anychronic medical conditions that he is aware of. [facility] <KAY Davidson - Last Filed: 04/26/25 14:41> [facility] Medical History Substance abuse Smoker Migraines Jaw fracture Wrist fracture, right Foot fracture, left Rib fractures Hip fracture, left Home Medications ?Medication ?Instructions ?Recorded ?Last Taken ?Type NK 04/26/25 Unknown History Allergy/AdvReac Type Severity Reaction Status Date / Time No Known Allergies Allergy Verified 04/26/25 12:02 Surgical History Status post hip surgery Social History Smoking Status: Current every day smoker tobacco type: cigarettes ROS <KAY Davidson - Last Filed: 04/26/25 14:41> ROS ED Constitutional Constitutional ED: Denies chills or fever(s) Cardiovascular Cardiovascular: Denies chest pain Respiratory/Chest Respiratory/Chest: Denies dyspnea Gastrointestinal Gastrointestinal: Denies abdominal pain, nausea or vomiting Musculoskeletal Musculoskeletal: Denies arthralgias or myalgias Integumentary Denies rash Neurologic Neurologic: Denies weakness Psychiatric Psychiatric: Denies anxiety, depression, suicidal ideation or suicidal thoughts EXAM <KAY Davidson - Last Filed: 04/26/25 14:41> Physical Exam Const Vital Signs: 04/26/25 12:02 Temperature 97 F L Temperature Source Temporal Pulse Rate 71 Respiratory Rate 14 Blood Pressure 124/92 H Blood Pressure Mean 102 Pulse Ox 98 Oxygen Delivery Method Room Air Positive well nourished, well developed and no apparent distress General Appearance ED: well developed HEENT Reports normocephalic and head/scalp atraumatic Mouth ED: Yes moist mucous membranes normal Eyes PERRL and EOMs intact bilaterally Neck full ROM and supple Chest Wall inspection of chest normal Resp normal respiratory effort and clear to auscultation bilaterally Cardio regular rate and regular rhythm GI soft to palpation, non-tender, non-distended and no masses Back/Spine normal ROM and normal to inspection Extremity normal to inspection and full ROM Neuro moves all extremities, no focal motor deficits and no sensory deficits noted Sensorium / Orientation: awake and alert Psych mental status grossly normal and thought process normal Skin no rashes or lesions noted and no wounds <Dr. Clay Campos MD - Last Filed: 04/26/25 14:04> Physical Exam Const Vital Signs: 04/26/25 12:02 Temperature 97 F L Temperature Source Temporal Pulse Rate 71 Respiratory Rate 14 Blood Pressure 124/92 H Blood Pressure Mean 102 Pulse Ox 98 Oxygen Delivery Method Room Air MDM <KAY Davidson - Last Filed: 04/26/25 14:41> MDM MDM Narrative Medical decision making narrative: Patient presenting today requesting to detox from opioids which she has used formany years. He buys Percocets off the streets and fentanyl which she snorts. No IV drug use. He has never detoxed before. Last used yesterday. Labs obtained, his CBC and BMP are largely unremarkable. His urine drug screen is positive for fentanyl, amphetamines, and benzodiazepines. I spoke with Dr. Xie, patient admitted in stable condition for detox. Lab Data Labs: Laboratory Results - last 24 hr 04/26/25 04/26/25 12:54 13:50 WBC 8.3 RBC 4.82 Hgb 14.1 Hct 41.6 MCV 86.3 MCH 29.3 MCHC 33.9 RDW Std Deviation 40.2 RDW Coeff of Grace 12.7 Plt Count 235 MPV 10.7 Immature Gran % (Auto) 0.400 Neut % (Auto) 54.8 Lymph % (Auto) 35.8 [place] % (Auto) 6.3 Eos % (Auto) 1.9 Baso % (Auto) 0.8 Absolute Neuts (auto) 4.5 Absolute Lymphs (auto) 2.95 Nucleated RBC % 0 Sodium 145 Potassium 3.7 Chloride 108 Carbon Dioxide 26.1 Anion Gap 10 BUN 9 Creatinine 0.99 Estim Creat Clear Calc 120.79 Est GFR (MDRD) Non-Af 99 BUN/Creatinine Ratio 8.6 L Glucose 83 Calcium 9.1 Urine Opiates Screen NEGATIVE U Buprenorphine Qual NEGATIVE Ur Oxycodone Screen NEGATIVE Urine Methadone Screen NEGATIVE Urine Fentanyl Screen PRESUMPTIVE POSITIVE Ur Barbiturates Screen NEGATIVE Ur Phencyclidine Scrn NEGATIVE Ur Amphetamines Screen PRESUMPTIVE POSITIVE U Benzodiazepines Scrn PRESUMPTIVE POSITIVE Urine Cocaine Screen NEGATIVE U Cannabinoids Screen NEGATIVE Ethyl Alcohol < 10.1 <Dr. Clay Campos MD - Last Filed: 04/26/25 14:04> [facility] Lab Data Attestation: I reviewed the patient's lab results. Labs: Laboratory Results - last 24 hr 04/26/25 04/26/25 12:54 13:50 WBC 8.3 RBC 4.82 Hgb 14.1 Hct 41.6 MCV 86.3 MCH 29.3 MCHC 33.9 RDW Std Deviation 40.2 RDW Coeff of Grace 12.7 Plt Count 235 MPV 10.7 Immature Gran % (Auto) 0.400 Neut % (Auto) 54.8 Lymph % (Auto) 35.8 [place] % (Auto) 6.3 Eos % (Auto) 1.9 Baso % (Auto) 0.8 Absolute Neuts (auto) 4.5 Absolute Lymphs (auto) 2.95 Nucleated RBC % 0 Sodium 145 Potassium 3.7 Chloride 108 Carbon Dioxide 26.1 Anion Gap 10 BUN 9 Creatinine 0.99 Estim Creat Clear Calc 120.79 Est GFR (MDRD) Non-Af 99 BUN/Creatinine Ratio 8.6 L Glucose 83 Calcium 9.1 Urine Opiates Screen NEGATIVE U Buprenorphine Qual NEGATIVE Ur Oxycodone Screen NEGATIVE Urine Methadone Screen NEGATIVE Urine Fentanyl Screen PRESUMPTIVE POSITIVE Ur Barbiturates Screen NEGATIVE Ur Phencyclidine Scrn NEGATIVE Ur Amphetamines Screen PRESUMPTIVE POSITIVE U Benzodiazepines Scrn PRESUMPTIVE POSITIVE Urine Cocaine Screen NEGATIVE U Cannabinoids Screen NEGATIVE Ethyl Alcohol < 10.1 Management Discussion w/another healthcare provider: Hospitalist Treatment and Re-Evaluation Narrative: I have personally performed a face to face assessment of the patient and have reviewed the ROGER Note. I performed a substantive portion of the visit including all aspects of the following. My garza findings include: History is wanting detox from opiates. Snorts them does not use any IV drugs. Rare use of methamphetamine but denies alcohol use. Is been using heavily for years, has never done detox before. Not feeling severe withdrawal symptoms at the moment, last use was last night. Exam is alert and oriented x 3, heart is regular, no tachycardia, lungs clear, abdomen soft nontender nondistended. No signs of cellulitis. Medical Decison Making labs reviewed, toxicology. Discussed with hospitalist for detox bed. Other additions or changes: [None] Discharge Plan Dx/Rx/DC Orders Clinical Impression: Opioid dependence, Desire for detoxification Disposition Disposition: Acute Care Hospital [facility] What to do if you have Problems For any increased pain, shortness of breath, bleeding, nausea or vomiting, chest pain, or any unexpected problems, contact your Primary Care Provider. Call [facility] ([phone]) or report to the closest Emergency Room. Call 911 if necessary. 04/26/25 1441 <Electronically signed by [place]ana VILLANUEVA> Cosigner Signature (if applicable): 04/26/25 1556 <Electronically signed by Clay Campos MD> CC: No Primary Care Physician ~ Signed [facility] Work Phone: 1(529) 254-440206-27-2025 History and physical note Author Olivia Xie [facility] Note Date/Time April 26, 2025 2:26 pm [facility] Medical Records Department [address] [place] [address] H&P Exam - Hospitalist 04/26/25 1422 MR#: [id number] Acct: [id number] Name: SILVIO BRIZUELA Rep #:[id number] : 1985 39 From: Olivia Xie MD PCP: Care Physician,No Primary Status :REG ER Location: ED HPI - General General Date of Admission: 04/26/25 Date of Service: 04/26/25 Chief Complaint: Opioid detox HPI Narrative SILVIO BRIZUELA, is a 38-year-old male history of opioid use disorder, tobacco use presented to [facility] ED 04/26/2025 for detox from opioids. He has been using opioids for many years, primarily Percocet which he buys off the street as well as fentanyl which he snorts. Denies any IV drug abuse. Lastuse was yesterday and he feels like he has started drawing. Feeling irritable with an upset stomach. In the ED vitally stable and lab workup with no evidenceof endorgan damage. Hospitalist contacted for admission for opioid detox. Patient reports history as above with frequent use of Percocet and fentanyl for many years with last use yesterday, feeling somewhat irritable some GI upset andbeginning to feel rough. Also uses meth 3 times a week with last use yesterday or the day before. Does smoke cigarettes with 1 pack/day. PFSH Medical History Substance abuse Smoker Migraines Jaw fracture Wrist fracture, right Foot fracture, left Rib fractures Hip fracture, left Home Medications ?Medication ?Instructions ?Recorded ?Last Taken ?Type NK 04/26/25 Unknown History Allergy/AdvReac Type Severity Reaction Status Date / Time No Known Allergies Allergy Verified 04/26/25 12:02 Surgical History Status post hip surgery Social History Smoking Status: Current every day smoker tobacco type: cigarettes ROS ROS Narrative General: Denies fever/chills HENT: Denies headache, denies stuffy nose, denies sore throat EYES: Denies changes in vision Resp: Denies cough, denies shortness of breath Cardiac: Denies chest pain GI: Denies abdominal pain, denies changes in bowel, denies nausea/vomiting, justfeels stomach is not feeling very good : Denies changes in urination Extremity: Denies swelling MSK: Denies weakness Neuro: Denies any numbness/tingling Heme: Denies any bleeding or bruising Skin: Denies rashes Psychiatric: Starting to feel rough, feeling irritable Vital Signs Vital Signs Vital Signs: 04/26/25 12:02 Temperature 97 F L Temperature Source Temporal Pulse Rate 71 Respiratory Rate 14 Blood Pressure 124/92 H Blood Pressure Mean 102 Pulse Ox 98 Oxygen Delivery Method Room Air Weight Weight: 102.3 kg Body Mass Index (BMI) 31.4 Physical Exam Narrative General: Alert, oriented, no apparent distress HEENT: Atraumatic, normocephalic Eyes: Anicteric, normal conjunctiva, extraocular movements grossly intact Neck: Supple Respiratory: Clear to auscultation bilaterally, normal respiratory effort Cardiovascular: Regular rate and rhythm GI: Soft, nontender, nondistended Extremities: Trace lower extremity edema Musculoskeletal: Moving all extremities Neuro: No overt focal neurological deficits Skin: No rashes appreciated Psych: Cooperative Results Lab / Micro Data 04/26/25 12:54 04/26/25 12:54 Labs: Laboratory Results - last 24 hr 04/26/25 12:54: WBC 8.3, RBC 4.82, Hgb 14.1, Hct 41.6, MCV 86.3, MCH 29.3, MCHC 33.9, RDW Std Deviation 40.2, RDW Coeff of Grace 12.7, Plt Count 235, MPV 10.7, Immature Gran % (Auto) 0.400, Neut % (Auto) 54.8, Lymph % (Auto) 35.8, [place] % (Auto) 6.3, Eos % (Auto) 1.9, Baso % (Auto) 0.8, Absolute Neuts (auto) 4.5, Absolute Lymphs (auto) 2.95, Nucleated RBC % 0, Sodium 145, Potassium 3.7, Chloride 108, Carbon Dioxide 26.1, Anion Gap 10, BUN 9, Creatinine 0.99, Estim Creat Clear Calc 120.79, Est GFR (MDRD) Non-Af 99, BUN/Creatinine Ratio 8.6 L, Glucose 83, Calcium 9.1, Ethyl Alcohol < 10.1 Assessment & Plan Assessment/Plan (1) Opioid dependence: PLAN: Plan #Acute opiate withdrawal - Subutex taper initiated - As needed Tylenol, ibuprofen, bowel regimen, gabapentin, Bentyl, Vistaril, methocarbamol, clonidine - As needed trazodone nightly - As needed antiemetics -Once patient begins to clinically improve will discuss further discharge planning # Methamphetamine use disorder - Uses 3 times a week, last use 1 to 2 days ago - Advised cessation - UDS pending #Tobacco use -Advise cessation -Nicotine replacement available if desired #DVT ppx: Low risk, ambulatory Oilvia Xie MD Charges/Coding Visit Charges Inpatient E&M: 15082 Init Hosp L1 04/26/25 1426 <Electronically signed by Olivia Xie MD> Cosigner Signature (if applicable): CC: Dr. Olivia Xie MD; No Primary Care Physician~ Signed [facility] Work Phone: [phone]) 928-823706-27-2025 Evaluation note* Diagnosis Onset Date Resolution Status Admit Date Opioid dependence acute April 262024 2:23pm [facility] Work Phone: [phone]) 180-702906-27-2025 Discharge summary [facility] Medical Records Department [address] [place], [place] [address] [address] Emergency Department Summary 04/26/25 MR#: [id number] Acct: [id number] Name: SILVIO BRIZUELA Rep #:[id number] : 1985 39 From: [place] PCP: Care Physician,No Primary Status :ADM IN Location: MS3 IN010-2 HPI History of Present Illness Chief Complaint: Substance Abuse Narrative Narrative: Patient presenting today requesting to detox from opioids. He reports that he has been using opioids for many years and primarily takes Percocets that he buysoff the street as well as fentanyl which he snorts. He denies any IV drug use. He is unable to quantify how much he uses in a day but he lastused yesterday. He is starting to feel like he is withdrawing. He reports stomach irritation and feeling irritable. He denies any other substance use. He denies having anychronic medical conditions that he is aware of. [facility] Medical History Substance abuse Smoker Migraines Jaw fracture Wrist fracture, right Foot fracture, left Rib fractures Hip fracture, left Home Medications ?Medication ?Instructions ?Recorded ?Last Taken ?Type NK 04/26/25 Unknown History Allergy/AdvReac Type Severity Reaction Status Date / Time No Known Allergies Allergy Verified 04/26/25 12:02 Surgical History Status post hip surgery Social History Smoking Status: Current every day smoker tobacco type: cigarettes ROS ROS ED Constitutional Constitutional ED: Denies chills or fever(s) Cardiovascular Cardiovascular: Denies chest pain Respiratory/Chest Respiratory/Chest: Denies dyspnea Gastrointestinal Gastrointestinal: Denies abdominal pain, nausea or vomiting Musculoskeletal Musculoskeletal: Denies arthralgias or myalgias Integumentary Denies rash Neurologic Neurologic: Denies weakness Psychiatric Psychiatric: Denies anxiety, depression, suicidal ideation or suicidal thoughts EXAM Physical Exam Const Vital Signs: 04/26/25 12:02 Temperature 97 F L Temperature Source Temporal Pulse Rate 71 Respiratory Rate 14 Blood Pressure 124/92 H Blood Pressure Mean 102 Pulse Ox 98 Oxygen Delivery Method Room Air Positive well nourished, well developed and no apparent distress General Appearance ED: well developed HEENT Reports normocephalic and head/scalp atraumatic Mouth ED: Yes moist mucous membranes normal Eyes PERRL and EOMs intact bilaterally Neck full ROM and supple Chest Wall inspection of chest normal Resp normal respiratory effort and clear to auscultation bilaterally Cardio regular rate and regular rhythm GI soft to palpation, non-tender, non-distended and no masses Back/Spine normal ROM and normal to inspection Extremity normal to inspection and full ROM Neuro moves all extremities, no focal motor deficits and no sensory deficits noted Sensorium / Orientation: awake and alert Psych mental status grossly normal and thought process normal Skin no rashes or lesions noted and no wounds Physical Exam Const Vital Signs: 04/26/25 12:02 Temperature 97 F L Temperature Source Temporal Pulse Rate 71 Respiratory Rate 14 Blood Pressure 124/92 H Blood Pressure Mean 102 Pulse Ox 98 Oxygen Delivery Method Room Air MDM MDM MDM Narrative Medical decision making narrative: Patient presenting today requesting to detox from opioids which she has used formany years. He buysPercocets off the streets and fentanyl which she snorts. No IV drug use. He has never detoxed before. Last used yesterday. Labs obtained, his CBC and BMP are largely unremarkable. His urine drug screen is positive for fentanyl, amphetamines, and benzodiazepines. I spoke with Dr. Xie, patient admitted in stable condition for detox. Lab Data Labs: Laboratory Results - last 24 hr 04/26/25 04/26/25 12:54 13:50 WBC 8.3 RBC 4.82 Hgb 14.1 Hct 41.6 MCV 86.3 MCH 29.3 MCHC 33.9 RDW Std Deviation 40.2 RDW Coeff of Grace 12.7 Plt Count 235 MPV 10.7 Immature Gran % (Auto) 0.400 Neut % (Auto) 54.8 Lymph % (Auto) 35.8 [place] % (Auto) 6.3 Eos % (Auto) 1.9 Baso % (Auto) 0.8 Absolute Neuts (auto) 4.5 Absolute Lymphs (auto) 2.95 Nucleated RBC % 0 Sodium 145 Potassium 3.7 Chloride 108 Carbon Dioxide 26.1 Anion Gap 10 BUN 9 Creatinine 0.99 Estim Creat Clear Calc 120.79 Est GFR (MDRD) Non-Af 99 BUN/Creatinine Ratio 8.6 L Glucose 83 Calcium 9.1 Urine Opiates Screen NEGATIVE U Buprenorphine Qual NEGATIVE Ur Oxycodone Screen NEGATIVE Urine Methadone Screen NEGATIVE Urine Fentanyl Screen PRESUMPTIVE POSITIVE Ur Barbiturates Screen NEGATIVE Ur Phencyclidine Scrn NEGATIVE Ur Amphetamines Screen PRESUMPTIVE POSITIVE U Benzodiazepines Scrn PRESUMPTIVE POSITIVE Urine Cocaine Screen NEGATIVE U Cannabinoids Screen NEGATIVE Ethyl Alcohol < 10.1 MDM Lab Data Attestation: I reviewed the patient's lab results. Labs: Laboratory Results - last 24 hr 04/26/25 04/26/25 12:54 13:50 WBC 8.3 RBC 4.82 Hgb 14.1 Hct 41.6 MCV 86.3 MCH 29.3 MCHC 33.9 RDW Std Deviation 40.2 RDW Coeff of Grace 12.7 Plt Count 235 MPV 10.7 Immature Gran % (Auto) 0.400 Neut % (Auto) 54.8 Lymph % (Auto) 35.8 [place] % (Auto) 6.3 Eos % (Auto) 1.9 Baso % (Auto) 0.8 Absolute Neuts (auto) 4.5 Absolute Lymphs (auto) 2.95 Nucleated RBC % 0 Sodium 145 Potassium 3.7 Chloride 108 Carbon Dioxide 26.1 Anion Gap 10 BUN 9 Creatinine 0.99 Estim Creat Clear Calc 120.79 Est GFR (MDRD) Non-Af 99 BUN/Creatinine Ratio 8.6 L Glucose 83 Calcium 9.1 Urine Opiates Screen NEGATIVE U Buprenorphine Qual NEGATIVE Ur Oxycodone Screen NEGATIVE Urine Methadone Screen NEGATIVE Urine Fentanyl Screen PRESUMPTIVE POSITIVE Ur Barbiturates Screen NEGATIVE Ur Phencyclidine Scrn NEGATIVE Ur Amphetamines Screen PRESUMPTIVE POSITIVE U Benzodiazepines Scrn PRESUMPTIVE POSITIVE Urine Cocaine Screen NEGATIVE U Cannabinoids Screen NEGATIVE Ethyl Alcohol < 10.1 Management Discussion w/another healthcare provider: Hospitalist Treatment and Re-Evaluation Narrative: I have personally performed a face to face assessment of the patient and have reviewed the ROGER Note. I performed a substantive portion of the visit including all aspects of the following. My garza findings include: History is wanting detox from opiates. Snorts them does not use any IV drugs. Rare use of methamphetamine but denies alcohol use. Is been using heavily for years, has never done detox before. Not feeling severe withdrawal symptoms at the moment, last use was last night. Exam is alert and oriented x 3, heart is regular, no tachycardia, lungs clear, abdomen soft nontender nondistended. No signs of cellulitis. Medical Decison Making labs reviewed, toxicology. Discussed with hospitalist for detox bed. Other additions or changes: [None] Discharge Plan Dx/Rx/DC Orders Clinical Impression: Opioid dependence, Desire for detoxification Disposition Disposition: Acute Care Hospital [facility] What to do if you have Problems For any increased pain, shortness of breath, bleeding, nausea or vomiting, chest pain, or any unexpected problems, contact your Primary Care Provider. Call [facility] ([phone]) or report to the closest Emergency Room. Call 911 if necessary. 04/26/25 1441 Cosigner Signature (if applicable): 04/26/25 1556 CC: No Primary Care Physician ~ Signed [facility]2025 History and physical note [facility] Medical Records Department [address] [place] [address] H&P Exam - Hospitalist 04/26/25 1422 MR#: [id number] Acct: [id number] Name: SILVIO BRIZUELA Rep #:[id number] : 1985 39 From: Olivia Xie MD PCP: Care Physician,No Primary Status :REG ER Location: ED HPI - General General Date of Admission: 04/26/25 Date of Service: 04/26/25 Chief Complaint: Opioid detox HPI Narrative SILVIO BRIZUELA, is a 38-year-old male history of opioid use disorder, tobacco use presented to [facility] ED 04/26/2025 for detox from opioids. He has been using opioids for many years, primarily Percocet which he buys off the street as well as fentanyl which he snorts. Denies any IVdrug abuse. Lastuse was yesterday and he feels like he has started drawing. Feeling irritable with an upset stomach. In the ED vitally stable and lab workup with no evidenceof endorgan damage. Hospitalist contacted for admission for opioid detox. Patient reports history as above with frequent use of Percocet and fentanyl for many years with last use yesterday, feeling somewhat irritable some GI upset andbeginning to feel rough. Also uses meth 3 times a week with last use yesterday or the day before. Does smoke cigarettes with 1 pack/day. [facility] Medical History Substance abuse Smoker Migraines Jaw fracture Wrist fracture, right Foot fracture, left Rib fractures Hip fracture, left Home Medications ?Medication ?Instructions ?Recorded ?Last Taken ?Type NK 04/26/25 Unknown History Allergy/AdvReac Type Severity Reaction Status Date / Time No Known Allergies Allergy Verified 04/26/25 12:02 Surgical History Status post hip surgery Social History Smoking Status: Current every day smoker tobacco type: cigarettes ROS ROS Narrative General: Denies fever/chills HENT: Denies headache, denies stuffy nose, denies sore throat EYES: Denies changes in vision Resp: Denies cough, denies shortness of breath Cardiac: Denies chest pain GI: Denies abdominal pain, denies changes in bowel, denies nausea/vomiting, justfeels stomach is not feeling very good : Denies changes in urination Extremity: Denies swelling MSK: Denies weakness Neuro: Denies any numbness/tingling Heme: Denies any bleeding or bruising Skin: Denies rashes Psychiatric: Starting to feel rough, feeling irritable Vital Signs Vital Signs Vital Signs: 04/26/25 12:02 Temperature 97 F L Temperature Source Temporal Pulse Rate 71 Respiratory Rate 14 Blood Pressure 124/92 H Blood Pressure Mean 102 Pulse Ox 98 Oxygen Delivery Method Room Air Weight Weight: 102.3 kg Body Mass Index (BMI) 31.4 Physical Exam Narrative General: Alert, oriented, no apparent distress HEENT: Atraumatic, normocephalic Eyes: Anicteric, normal conjunctiva, extraocular movements grossly intact Neck: Supple Respiratory: Clear to auscultation bilaterally, normal respiratory effort Cardiovascular: Regular rate and rhythm GI: Soft, nontender, nondistended Extremities: Trace lower extremity edema Musculoskeletal: Moving all extremities Neuro: No overt focal neurological deficits Skin: No rashes appreciated Psych: Cooperative Results Lab / Micro Data 04/26/25 12:54 04/26/25 12:54 Labs: Laboratory Results - last 24 hr 04/26/25 12:54: WBC 8.3, RBC 4.82, Hgb 14.1, Hct 41.6, MCV 86.3, MCH 29.3, MCHC 33.9, RDW Std Deviation 40.2, RDW Coeff of Grace 12.7, Plt Count 235, MPV 10.7, Immature Gran % (Auto) 0.400, Neut % (Auto) 54.8, Lymph % (Auto) 35.8, [place] % (Auto) 6.3, Eos % (Auto) 1.9, Baso % (Auto) 0.8, Absolute Neuts(auto) 4.5, Absolute Lymphs (auto) 2.95, Nucleated RBC % 0, Sodium 145, Potassium 3.7, Chloride 108, Carbon Dioxide 26.1, Anion Gap 10, BUN 9, Creatinine 0.99, Estim Creat Clear Calc 120.79, Est GFR (MDRD) Non-Af 99, BUN/Creatinine Ratio 8.6 L, Glucose 83, Calcium 9.1, Ethyl Alcohol < 10.1 Assessment & Plan Assessment/Plan (1) Opioid dependence: PLAN: Plan #Acute opiate withdrawal - Subutex taper initiated - As needed Tylenol, ibuprofen, bowel regimen, gabapentin, Bentyl, Vistaril, methocarbamol, clonidine - As needed trazodone nightly - As needed antiemetics -Once patient begins to clinically improve will discuss further discharge planning # Methamphetamine use disorder - Uses 3 times a week, last use 1 to 2 days ago - Advised cessation - UDS pending #Tobacco use -Advise cessation -Nicotine replacement available if desired #DVT ppx: Low risk, ambulatory Olivia Xie MD Charges/Coding Visit Charges Inpatient E&M: 62478 Init Hosp L1 04/26/25 1426 Cosigner Signature (if applicable): CC: Dr. Olivia Xie MD; No Primary Care Physician~ Signed [facility]2025 Hospital Discharge instructions* Discharge Instructions* Beto Gauthier MD - 04/26/2025 1:29 AM EDT Please utilize the resources provided to you today. If your symptoms worsen please come back to theER for repeat evaluation. * Attachments The following attachments cannot be sent through Care Everywhere. * How to Give Naloxone (Tai[place]ese) * Opioid Overdose (Taiwanese) * Drug Abuse and Drug Addiction Discharge Instructions (Tai[place]ese) documented in this [facility]06-26-2025 Emergency department Note* Tanisha Montoya RN - 04/25/2025 10:38 PM EDT Pt arouses to name. Again asked pt to provide urine specimen and given urinal. Pt falls back to sleep. 3rd L NS hung [id number]* Tanisha Montoya RN - 04/25/2025 10:38 PM EDT Pt arouses to name. Again asked pt to provide urine specimen and given urinal. Pt falls back to sleep. 3rd L NS hung as ordered * Tanisha Montoya RN - 04/25/2025 9:59 PM EDT Pt arouses to name. Given urinal and asked to provide a urine specimen. Pt states I will eventually * Tanisha Montoya RN - 04/25/2025 8:36 PM EDT Arouses to loud verbal and tactile stimuli. Given a sip of water. Father @ bedside * Tanisha Montoya RN - 04/25/2025 6:34 PM EDT Pt resting with eyes closed. Respirations even and unlabored. Visitor at bedside * Tanisha Montoya RN - 04/25/2025 5:45 PM EDT Pt very restless in bed after receiving narcan as ordered. Visitor @ bedside. Side rails remain up x 2 for safety. * Tanisha Montoya RN - 04/25/2025 5:[address] Milton to bedside. Pt rouses to sternal rub. * Tanisha Montoya RN - 04/25/2025 5:15 PM EDT Pt sleeping. Arouses to tactile stimuli. Visitors @ [facility] * Kylee Milton DO - 04/25/2025 3:51 PM EDT EMERGENCY DEPARTMENT ENCOUNTER Pt Name: Silvio Brizuela Birthdate 1985 Date of evaluation: 04/25/2025 ED Provider: Kylee Milton DO CHIEF COMPLAINT Chief Complaint Patient presents with Drug Overdose Percocet and fentanyl HISTORY OF PRESENT ILLNESS (Location/Symptom, Timing/Onset, Context/Setting, Quality, Duration, Modifying Factors, Severity) Note limiting factors. I wore appropriate PPE for the entirety of this encounter. HPI Silvio Brizuela is a 39 y.o. who presents to the emergency department with chief complaint of drugoverdose. Per EMS, patient was found unresponsive and given 4 mg of Narcan IN with improvement in his mental status. Patient admits to overdosing on opiates. These include fentanyl and Percocet. Denies any alcohol use. Denies any other drug ingestion. Patient states he is interested in detox. Has gone through detox in the past and has been on Suboxone and methadone but says that it did not work out for him. Nursing Notes were reviewed. Limitations to history: Intoxication Outside historians: EMS REVIEW OF SYSTEMS Review of Systems Pertinent positives and negatives as per HPI. PAST MEDICAL HISTORY Medical History[1] SURGICAL HISTORY Surgical History[2] CURRENT MEDICATIONS Previous Medications No medications on file ALLERGIES Patient has no known allergies. FAMILY HISTORY Family History[3] SOCIAL HISTORY Social History[4] SCREENINGS Kristel Coma Scale Best Eye Response: To verbal stimuli Best Verbal Response: Oriented Best Motor Response: Follows commands Kristel Coma Scale Score: 14 PHYSICAL EXAM ED Triage Vitals [04/25/25 1553] Temp Heart Rate Resp BP 37.4 C (99.4 F) (!) 122 15 (!) 147/84 SpO2 Temp Source Heart Rate Source Patient Position 100 % Oral Monitor Sitting BP Location FiO2 (%) Right arm -- Physical Exam Constitutional: In no acute distress. HENT: Mucous membranes dry. Pupils 3 mm and reactive bilaterally. EOMI. Cardiovascular: Tachycardic rate and regular rhythm. No abnormal heart sounds heard. Pulmonary/Chest: Effort normal with no conversational dyspnea. Clear to auscultation bilaterally. Abdominal: Soft. No tenderness. No distension or guarding. Musculoskeletal: No edema Neuro: Moves all extremities. Sensation intact in all extremities. No cranial nerve deficit. Oriented x 3. GCS 14 E3 V4M6 Skin: Skin is warm and dry. DIAGNOSTIC RESULTS Procedures/EKG: EKG was reviewed by myself. Physician EKG interpretation can be found in [facility] RADIOLOGY (Per Emergency Physician): Interpretation per the Radiologist below, if available at the time of this note: No orders to display ED BEDSIDE ULTRASOUND: Performed by ED Physician - none LABS: Labs Reviewed COMPREHENSIVE METABOLIC PANEL - Abnormal Result Value SODIUM 144 POTASSIUM 3.1 (*) CHLORIDE 107 CARBON DIOXIDE 26 ANION GAP 11 UREA NITROGEN 13 CREATININE 1.40 (*) GLUCOSE 98 CALCIUM 8.9 AST (SGOT) 23 ALT 10 ALKALINE PHOSPHATASE 107 ALBUMIN 4.0 BILIRUBIN, TOTAL 0.4 TOTAL PROTEIN 7.0 eGFR 65.2 SARS-COV-2 ANTIGEN - Normal SARS-CoV-2 Antigen Negative CBC WITH AUTO DIFFERENTIAL - Normal Auto WBC 9.5 RBC 4.81 Hemoglobin 14.2 Hematocrit 40.4 MCV 84.0 MCH 29.5 MCHC 35.1 RDW 12.7 Platelets 262 MPV 10.6 nRBC 0.0 Neutrophils Relative 59.6 Lymphocytes Relative 30.5 Monocytes Relative 7.5 Eosinophils Relative 1.6 Basophils Relative 0.7 Immature Grans % 0.1 Neutrophils Absolute 5.7 Lymphocytes Absolute 2.9 Monocytes Absolute 0.7 Eosinophils Absolute 0.2 Basophils Absolute 0.1 Immature Grans Absolute 0.0 ETHANOL - Normal ETHANOL IN SER/PLAS <10 Narrative: PHYSICS DEPARTMENT CHAIR depression is seen >100 mg/dL. NOTE: This result is for medical treatment only. Analysis performed using non- forensic procedures. DRUGS OF ABUSE COMPLETE URINALYSIS WITH REFLEX TO CULTURE All other labs were within normal range or not returned as of this dictation. EMERGENCY DEPARTMENT COURSE and DIFFERENTIAL DIAGNOSIS/MDM: Vitals: Vitals: 04/25/25 1553 04/25/25 1716 BP: (!) 147/84 138/87 BP Location: Right arm Right arm Patient Position: Sitting Lying Pulse: (!) 122 94 Resp: 15 12 Temp: 37.4 C (99.4 F) TempSrc: Oral SpO2: 100% 98% Weight: 72.6 kg (160 lb) 39-year-old male presenting with drug overdose. Differential diagnosis includes opiate overdose versus alcohol coingestions versus other drug ingestion versus infection versus electrolyte abnormalities. Patient is interested in detox. He had received 4 mg of IN Narcan with improvement in his mentalstatus and breathing. Labs notable for chronic kidney disease and hypokalemia, given replacement. Ethanol negative. There is no acute electrolyte abnormalities. Glucose is normal. UDS pending. UA pending. EKG without acute ischemic changes, baseline artifact noted in V6. Patient signed out to oncoming provider pending urine studies. ED Course as of 04/26/25 012 [facility] Apr 25, 20252005 Patient resting comfortably awaiting urinalysis. [MP] 2224 Patient resting comfortably awakens to gentle verbal stimuli awaiting urine [MP] 2348 Patient ambulatory, patient still states he would like help with detox. Awaiting urine drug screen. [MP] TueApr 26, 2025 012 Spoke with addiction medicine because patient is self-pay he would not be able to be admitted to the hospital. Patient is without any active signs of withdrawal. Will provide patient with outpatient resources. Spoke with patient and patient's father who are agreement with plan. [MP] ED Course User Index [MP] Beto Gauthier MD Diagnoses as of 04/26/25 012 Opioid overdose, accidental or unintentional, initial encounter ([facility]) Medications potassium chloride CR (Klor-Con M10) ER tablet 40 mEq (40 mEq Oral Not Given 04/25/25 1711) sodium chloride 0.9 % bolus 1,000 mL (0 mL IntraVENous Stopped 04/25/25 1720) naloxone (Narcan) injection 1 mg (1 mg IntraVENous Given 04/25/25 1723) REVAL: CRITICAL CARE TIME CONSULTS: None PROCEDURES: Unless otherwise noted below, none Procedures Patients symptoms are consistent with sepsis, severe sepsis, or septic shock (If yes use .sepsiscoremeasure): FINAL IMPRESSION 1. Opioid overdose, accidental or unintentional, initial encounter ([facility]) DISPOSITION Admit 04/25/2025 04:22:07 PM PATIENT REFERRED TO: No follow-up provider specified. DISCHARGE MEDICATIONS: New Prescriptions No medications on file (Comment: Please note this report has been produced using speech recognition software and may contain errors related to that system including errors in grammar, punctuation, and spelling, as well as words and phrases that may be inappropriate. If there are any questions or concerns please feel freeto contact the dictating provider for clarification.) Kylee Milton DO (electronically signed) Emergency Medicine Provider Kylee Milton DO 04/25/25 4996 [1] No past medical history on file. [2] No past surgical history on file. [3] No family history on file. [4] Social History Socioeconomic History Marital status: Single Tobacco Use Smoking status: Every Day Types: Cigarettes Substance and Sexual Activity Alcohol use: Not Currently * Tanisha Montoya RN - 04/25/2025 3:51 PM EDT Pt to ER by [facility] with complaint of drug overdose. Pt found unresponsive. Given Narcan by EMS, now awake and alert. Denies ETOH use. States his drug of choice is opioids. Call light in reach. Side rails up x 2 for safety documented in this [facility]06-26-2025 Emergency department Note* Tanisha Montoya RN - 04/25/2025 9:59 PM EDT Pt arouses to name. Given urinal and asked to provide a urine specimen. Pt states I will eventually [id number] Emergency department Note* Tanisha Montoya RN - 04/25/2025 8:36 PM EDT Arouses to loud verbal and tactile stimuli. Given a sip of water. Father @ bedside [id number] Emergency department Note* Tanisha Montoya RN - 04/25/2025 6:34 PM EDT Pt resting with eyes closed. Respirations even and unlabored. Visitor at bedside [id number] Emergency department Note* Tanisha Montoya RN - 04/25/2025 5:45 PM EDT Pt very restless in bed after receiving narcan as ordered. Visitor @ bedside. Side rails remain up x 2 for safety. [id number] Emergency department Note* Tanisha Montoya RN - 04/25/2025 5:[address] Milton to bedside. Pt rouses to sternal rub. [id number] Emergency department Note* Tanisha Montoya RN - 04/25/2025 5:15 PM EDT Pt sleeping. Arouses to tactile stimuli. Visitors @ [id number] Emergency department Triage note* Tanisha Montoya RN - 04/25/2025 3:51 PM EDT Pt to ER by [facility] with complaint of drug overdose. Pt found unresponsive. Given Narcan by EMS, now awake and alert. Denies ETOH use. States his drug of choice is opioids. Call light in reach. Side rails up x 2 for safety [id number] Physician Emergency department Note* Kylee Yap DO - 04/25/2025 3:51 PM EDT EMERGENCY DEPARTMENT ENCOUNTER Pt Name: Silvio Brizuela Birthdate 1985 Date of evaluation: 04/25/2025 ED Provider: Kylee Milton DO CHIEF COMPLAINT Chief Complaint Patient presents with Drug Overdose Percocet and fentanyl HISTORY OF PRESENT ILLNESS (Location/Symptom, Timing/Onset, Context/Setting, Quality, Duration, Modifying Factors, Severity) Note limiting factors. I wore appropriate PPE for the entirety of this encounter. HPI Silvio Brizuela is a 39 y.o. who presents to the emergency department with chief complaint of drugoverdose. Per EMS, patient was found unresponsive and given 4 mg of Narcan IN with improvement in his mental status. Patient admits to overdosing on opiates. These include fentanyl and Percocet. Denies any alcohol use. Denies any other drug ingestion. Patient states he is interested in detox. Has gone through detox in the past and has been on Suboxone and methadone but says that it did not work out for him. Nursing Notes were reviewed. Limitations to history: Intoxication Outside historians: EMS REVIEW OF SYSTEMS Review of Systems Pertinent positives and negatives as per HPI. PAST MEDICAL HISTORY Medical History[1] SURGICAL HISTORY Surgical History[2] CURRENT MEDICATIONS Previous Medications No medications on file ALLERGIES Patient has no known allergies. FAMILY HISTORY Family History[3] SOCIAL HISTORY Social History[4] SCREENINGS Kristel Coma Scale Best Eye Response: To verbal stimuli Best Verbal Response: Oriented Best Motor Response: Follows commands Kristel Coma Scale Score: 14 PHYSICAL EXAM ED Triage Vitals [04/25/25 1553] Temp Heart Rate Resp BP 37.4 C (99.4 F) (!) 122 15 (!) 147/84 SpO2 Temp Source Heart Rate Source Patient Position 100 % Oral Monitor Sitting BP Location FiO2 (%) Right arm -- Physical Exam Constitutional: In no acute distress. HENT: Mucous membranes dry. Pupils 3 mm and reactive bilaterally. EOMI. Cardiovascular: Tachycardic rate and regular rhythm. No abnormal heart sounds heard. Pulmonary/Chest: Effort normal with no conversational dyspnea. Clear to auscultation bilaterally. Abdominal: Soft. No tenderness. No distension or guarding. Musculoskeletal: No edema Neuro: Moves all extremities. Sensation intact in all extremities. No cranial nerve deficit. Oriented x 3. GCS 14 E3 V4M6 Skin: Skin is warm and dry. DIAGNOSTIC RESULTS Procedures/EKG: EKG was reviewed by myself. Physician EKG interpretation can be found in [facility] RADIOLOGY (Per Emergency Physician): Interpretation per the Radiologist below, if available at the time of this note: No orders to display ED BEDSIDE ULTRASOUND: Performed by ED Physician - none LABS: Labs Reviewed COMPREHENSIVE METABOLIC PANEL - Abnormal Result Value SODIUM 144 POTASSIUM 3.1 (*) CHLORIDE 107 CARBON DIOXIDE 26 ANION GAP 11 UREA NITROGEN 13 CREATININE 1.40 (*) GLUCOSE 98 CALCIUM 8.9 AST (SGOT) 23 ALT 10 ALKALINE PHOSPHATASE 107 ALBUMIN 4.0 BILIRUBIN, TOTAL 0.4 TOTAL PROTEIN 7.0 eGFR 65.2 SARS-COV-2 ANTIGEN - Normal SARS-CoV-2 Antigen Negative CBC WITH AUTO DIFFERENTIAL - Normal Auto WBC 9.5 RBC 4.81 Hemoglobin 14.2 Hematocrit 40.4 MCV 84.0 MCH 29.5 MCHC 35.1 RDW 12.7 Platelets 262 MPV 10.6 nRBC 0.0 Neutrophils Relative 59.6 Lymphocytes Relative 30.5 Monocytes Relative 7.5 Eosinophils Relative 1.6 Basophils Relative 0.7 Immature Grans % 0.1 Neutrophils Absolute 5.7 Lymphocytes Absolute 2.9 Monocytes Absolute 0.7 Eosinophils Absolute 0.2 Basophils Absolute 0.1 Immature Grans Absolute 0.0 ETHANOL - Normal ETHANOL IN SER/PLAS <10 Narrative: PHYSICS DEPARTMENT CHAIR depression is seen >100 mg/dL. NOTE: This result is for medical treatment only. Analysis performed using non- forensic procedures. DRUGS OF ABUSE COMPLETE URINALYSIS WITH REFLEX TO CULTURE All other labs were within normal range or not returned as of this dictation. EMERGENCY DEPARTMENT COURSE and DIFFERENTIAL DIAGNOSIS/MDM: Vitals: Vitals: 04/25/25 1553 04/25/25 1716 BP: (!) 147/84 138/87 BP Location: Right arm Right arm Patient Position: Sitting Lying Pulse: (!) 122 94 Resp: 15 12 Temp: 37.4 C (99.4 F) TempSrc: Oral SpO2: 100% 98% Weight: 72.6 kg (160 lb) 39-year-old male presenting with drug overdose. Differential diagnosis includes opiate overdose versus alcohol coingestions versus other drug ingestion versus infection versus electrolyte abnormalities. Patient is interested in detox. He had received 4 mg of IN Narcan with improvement in his mentalstatus and breathing. Labs notable for chronic kidney disease and hypokalemia, given replacement. Ethanol negative. There is no acute electrolyte abnormalities. Glucose is normal. UDS pending. UA pending. EKG without acute ischemic changes, baseline artifact noted in V6. Patient signed out to oncoming provider pending urine studies. ED Course as of 04/26/25 012 [facility] Apr 25, 20252005 Patient resting comfortably awaiting urinalysis. [MP] 2224 Patient resting comfortably awakens to gentle verbal stimuli awaiting urine [MP] 2348 Patient ambulatory, patient still states he would like help with detox. Awaiting urine drug screen. [MP] TueApr 26, 2025 012 Spoke with addiction medicine because patient is self-pay he would not be able to be admitted to the hospital. Patient is without any active signs of withdrawal. Will provide patient with outpatient resources. Spoke with patient and patient's father who are agreement with plan. [MP] ED Course User Index [MP] Beto Gauthier MD Diagnoses as of 04/26/25 012 Opioid overdose, accidental or unintentional, initial encounter (HCC) Medications potassium chloride CR (Klor-Con M10) ER tablet 40 mEq (40 mEq Oral Not Given 04/25/251710) sodium chloride 0.9 % bolus 1,000 mL (0 mL IntraVENous Stopped 6/26/25 1720) naloxone (Narcan) injection 1 mg (1 mg IntraVENous Given 04/25/25 1723) REVAL: CRITICAL CARE TIME CONSULTS: None PROCEDURES: Unless otherwise noted below, none Procedures Patients symptoms are consistent with sepsis, severe sepsis, or septic shock (If yes use .sepsiscoremeasure): FINAL IMPRESSION 1. Opioid overdose, accidental or unintentional, initial encounter ([facility]) DISPOSITION Admit 04/25/2025 04:22:07 PM PATIENT REFERRED TO: No follow-up provider specified. DISCHARGE MEDICATIONS: New Prescriptions No medications on file (Comment: Please note this report has been produced using speech recognition software and may contain errors related to that system including errors in grammar, punctuation, and spelling, as well as words and phrases that may be inappropriate. If there are any questions or concerns please feel freeto contact the dictating provider for clarification.) Kylee Milton DO (electronically signed) Emergency Medicine Provider Kylee Milton DO 04/25/25 2553 [1] No past medical history on file. [2] No past surgical history on file. [3] No family history on file. [4] Social History Socioeconomic History Marital status: Single Tobacco Use Smoking status: Every Day Types: Cigarettes Substance and Sexual Activity Alcohol use: Not Currently [id number] Miscellaneous Notes* Telephone Encounter - Sheryl Durham - 02/09/2022 8:20 AM EDTSummary: Wheelchair documentation Documentation located in mailbox of [facility]. Handed it to Yaya who said she will process it. Sheryl Durham February 09, 2022 8:21 AM * Telephone Encounter - Sheryl Durham - 02/08/2022 3:27 PM EDTSummary: Wheelchair documentation Destiny chapman [facility], [id number], asked for the status of the medical necessity documentation needing 's signature, for a wheelchair for the patient. She stated it was faxed on 3/30 and 02/03. Tommie Ojeda was the ordering user, and Dr. Ngael was theauthorized provider. does not have the document for signature. Yaya in the ortho clinic does not have the document. Did not locate document in the shared fax folder. Asked Destiny to refax the form to 's attention and note that it is the third attempt. Sheryl Durham February 08, 2022 3:30 PM [facility] NoteHNO ID: [id number] Author: Pedro Damon MD Service: ? Author Type: Resident Type: Progress Notes Filed: 01/27/2022 4:16 PM Note Text: Chief complaint: S/p L hip acetabulum fracture/dislocation (ORIF 01/01/22), L calcaneus fracture, R distal radius fracture and R 1st metacarpal base fracture, Silvio Brizuela is a 36 year old male who presents for follow up on the above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 patient; he was restless, mumbling and unable to provide much of a history. He told me he snorts fentanyl/heroin every 2 days. UDS pending. OARRS Review: negative Current Facility-Administered Medications Medication Dose Route Frequency Provider Last Rate Last Admin - calcium gluconate 4 g in NaCl 0.9% 250 mL 4 g INTRAVENOUS ONCE Chinaadela Machuca, DO 62.5 mL/hr at 01/04/22 0812 4 g at 01/04/22 0812 - phosphorus 250 mg tab(s) (K PHOS NEUTRAL) 250 mg ORAL PC and HS Chinaadela Machuca DO 250 mg at 01/04/22 08 - potassium phosphate 45 mmol in NaCl 0.9% 500 mL 45 mmol INTRAVENOUS ONCE Cedrick Mcmahan DO 83.33 mL/hr at 01/04/22 0831 45 mmol at 01/04/22 0831 - oxyCODONE IR 5-10 mg tab(s) (ROXICODONE) 5-10 mg ORAL q 4 H PRN Alecia Michelle MD 10 mg at 01/04/22 0835 - methadone 10 mg tab(s) (DOLOPHINE) 10 mg ORAL q 12 H 9a/9p Alecia Michelle MD 10 mg at 01/04/22 0812 - HYDROmorphone 1 mg injection (DILAUDID) 1 mg INTRAVENOUS q 3 H PRN Cedrick Mcmahan DO 1 mg at 01/04/22 0445 - lidocaine (PF) 10 mg/mL (1 %) 10-100 mg injection (XYLOCAINE) 1-10 mL INTRADERMAL DIRECTED PRN Cedrick Mcmahan DO - sodium chloride 0.9 % (flush) 10 mL (BD POSIFLUSH) 10 mL INTRAVENOUS q 12 H Cedrick Mcmahan DO 10 mL at 01/04/22 0813 - sodium chloride 0.9 % (flush) 20 mL (BD POSIFLUSH) 20 mL INTRAVENOUS PRN Cedrick Mcmahan DO - lidocaine urojet 2 % 6 mL topical gel (XYLOCAINE, GLYDO) 6 mL URETHRAL TID PRN Aurora Garner MD - mupirocin 2 % 0.5 g nasal ointment (BACTROBAN) 0.5 g NASAL BID Cedrick Mcmahan DO 0.5 g at 01/04/22 0812 - QUEtiapine 100 mg tab(s) (SEROquel) 100 mg ORAL BID Cedrick Mcmahan DO 100 mg at 01/04/22 0813 - haloperidol lactate 5 mg short-acting injection (HALDOL) 5 mg INTRAVENOUS q 4 H PRN Beto Platt MD 5 mg at 01/03/22 0338 - potassium-sodium phosphates 1 Packet (NEUTRA-PHOS,PHOS-NAK) 1 Packet ORAL TID Beto Platt MD 1 Packet at 01/04/22 0813 - enoxaparin 30 mg injection (LOVENOX) 30 mg SUBCUTANEOUS BID Beto Platt MD 30 mg at 01/04/22 0813 - acetaminophen 975 mg CUP (TYLENOL) 975 mg ORAL QID Beto Platt MD 975 mg at 01/04/22 0813 - gabapentin 300 mg oral liquid (NEURONTIN) 300 mg ORAL TID Beto Platt MD 300 mg at 01/04/22 1016 - polyethylene glycol 3350 17 g packet (MIRALAX, GLYCOLAX) 17 g ORAL DAILY Beto Platt MD 17 g at 01/03/22 0839 - ondansetron 4 mg tab(s) (ZOFRAN) 4 mg ORAL q 6 H PRN Beto Platt MD Or - ondansetron (PF) 4 mg injection (ZOFRAN) 4 mg INTRAVENOUS q 6 H PRN Beto Platt MD 4 mg at 01/04/22 0835 - sodium chloride 0.9 % (flush) 3-5 mL (BD POSIFLUSH) 3-5 mL INTRAVENOUS q 12 H Beto Platt MD 5 mL at 01/04/22 0916 - lidocaine 4 % 1 Patch (SALONPAS) 1 Patch TRANSDERMAL DAILY AT 9 PM Beto Platt MD 1 Patch at 01/03/221999 And - lidocaine patch - REMOVE OTHER DAILY Beto Platt MD And - lidocaine - VERIFY PATCH OTHER q 8 H Beto Platt MD - dexAMETHasone 0.1 % 4 Drop (DEXASOL) 4 Drop RIGHT EAR BID Beto Platt MD 4 Drop at 01/04/22 0915 And - ciprofloxacin 0.3 % 4 Drop (CILOXAN) 4 Drop RIGHT EAR BID Beto Platt MD (more content not included)...[facility] 01-04-2022 NoteHNO ID: [id number] Author: Mandeep Wray DO Service: General Surgery Author Type: Resident Type: Progress Notes Filed: 01/04/2022 6:36 AM Note Text: Attestation signed by Bin Sánchez MD at 01/04/2022 12:51 PM Attending Note I personally saw and examined the patient. I reviewed the resident's note. I agree with the resident's assessment and plan unless otherwise noted. Signature: Bin Sánchez MD Date: 01/04/2022 Time: 12:51 PM Trauma Surgery Progress Note SERVICE DATE: 01/04/2022 Trauma Service Pager: For questions or concerns Mon-Fri 6a-5p please page [phone]. After 5pm and on Weekends and Holidays, please page [phone] if in ICU or [phone] if on RNF. SUBJECTIVE: NAEO. On ketamine gtt . Pt very alert and participating in exam and asking for a diet OBJECTIVE: Vitals: Temp (24hrs), Av.8 ?C (98.3 ?F), Min:36.1 ?C (96.98 ?F), Max:37.8 ?C (100.04 ?F) BP 117/81 Pulse 110 Temp 36.4 ?C (97.5 ?F) Resp 16 Ht 182.9 cm (6') Wt 107.5 kg (236 lb 15.9 oz) SpO2 99% BMI 32.14 kg/m? O2 Therapy: Room Air IANDO: Date 01/03/22699 - 01/04/2265801/04/22699 - 01/05/22658 Shift 4744-0887 4138-6045 4974-0223 24 Hour Total 7303-3168 7581-7453 9169-7874 24 Hour Total INTAKE IV 934.9 278 251.4 1464.3 Volume (mL) 174.1 137.7 147 458.8 Volume (mL) 115.8 98.8 104.4 319 Volume (mL) (NaCl 0.9% iv flush bag) 59.9 14.2 74.1 Volume (mL) (potassium phosphate 45 mmol in NaCl 0.9% 500 mL) 500 500 Volume (mL) (dextrose 5% in NaCl 0.9% iv infusion) 85.1 27.3 112.4 Irrigants 150 90 60 300 Irrigant/Flush Amount In (GI Feed Assessment Naris) 150 90 60 300 Gastric Tube 217 739 358 4018 Supplements/Additives (mL) (GI Feed Assessment Naris) 270 270 Tube Feed Intake (I/O) (GI Feed Assessment Naris) 217 615 153 1979 Shift Total 1301.9 1201 531.4 3034.3 OUTPUT Urine 2600 134 962 6194 Output ([REMOVED] Indwelling Urinary Catheter 12/31/21 0200 Coude 01/03/22 1645) 2600 400 3000 Output ( External Collection Device 01/03/22 1700) 300 550 850 # of BMs Stool Incontinence 1 x 1 x Number of BMs 1 x 1 x Shift Total 2600 491 534 1482 Weight (kg) 109.7 109.7 107.5 107.5 107.5 107.5 107.5 107.5 MEDICATIONS: Current Facility-Administered Medications Medication Dose Route Frequency - calcium gluconate 4 g in NaCl 0.9% 250 mL 4 g INTRAVENOUS ONCE - phosphorus 250 mg tab(s) (K PHOS NEUTRAL) 250 mg ORAL PC and HS - potassium phosphate 45 mmol in NaCl 0.9% 500 mL 45 mmol INTRAVENOUS ONCE - oxyCODONE 10 mg oral liquid (ROXICODONE) 10 mg ORAL q 4 H - oxyCODONE 5-10 mg oral liquid (ROXICODONE) 5-10 mg ORAL q 4 H PRN - HYDROmorphone 1 mg injection (DILAUDID) 1 mg INTRAVENOUS q 3 H PRN - lidocaine (PF) 10 mg/mL (1 %) 10-100 mg injection (XYLOCAINE) 1-10 mL INTRADERMAL DIRECTED PRN - sodium chloride 0.9 % (flush) 10 mL (BD POSIFLUSH) 10 mL INTRAVENOUS q 12 H - sodium chloride 0.9 % (flush) 20 mL (BD POSIFLUSH) 20 mL INTRAVENOUS PRN - lidocaine urojet 2 % 6 mL topical gel (XYLOCAINE, GLYDO) 6 mL URETHRAL TID PRN - ketamine 500 mg in NaCl 0.9% 100 mL (KETALAR) 0.3-0.8 mg/kg/hr (Amorita) INTRAVENOUS CONTINUOUS - mupirocin 2 % 0.5 g nasal ointment (BACTROBAN) 0.5 g NASAL BID - QUEtiapine 100 mg tab(s) (SEROquel) 100 mg ORAL BID - haloperidol lactate 5 mg short-acting injection (HALDOL) 5 mg INTRAVENOUS q 4 H PRN - potassium-sodium phosphates 1 Packet (NEUTRA-PHOS,PHOS-NAK) 1 Packet ORAL TID - enoxaparin 30 mg injection (LOVENOX) 30 mg SUBCUTANEOUS BID - acetaminophen 975 mg CUP (TYLENOL) 975 mg ORAL QID - gabapentin 300 mg oral liquid (NEURONTIN) 300 mg ORAL TID - polyethylene glycol 3350 17 g packet (MIRALAX, GLYCOLAX) 17 g ORAL DAILY - ondansetron 4 mg tab(s) (ZOFRAN) 4 mg ORAL q 6 H PRN Or - ondansetron (PF) 4 mg injection (ZOFRAN) 4 mg INTRAVENOUS q 6 H PRN - sodium chloride 0.9 % (flush) 3-5 mL (BD POSIFLUSH) 3-5 mL INTRAVENOUS q 12 H - lidocaine 4 % 1 Patch (SALONPAS) 1 Patch TRANSDERMAL DAILY AT 9 PM And - lidocaine patch - REMOVE OTHER DAILY And - lidocaine - VERIFY PATCH OTHER q 8 H - dexAMETHasone 0.1 % 4 Drop (DEXASOL) 4 Drop RIGHT EAR BID And - ciprofloxacin 0.3 % 4 Drop (CILOXAN) 4 Drop RIGHT EAR BID - NaCl 0.9% iv flush bag 20 mL INTRAVENOUS PRN - dexmedeTOMIDine 400 mcg in NaCl 0.9% 100 mL (PRECEDEX) 0.2-0.7 mcg/kg/hr INTRAVENOUS CONTINUOUS Labs: Recent Labs 01/04/22 0239 01/03/22 0342 NA 141 143 K 4.0 3.8 CHLOR 110* 107* CO2 21* 23 BUN 17 12 CREAT 0.72* 0.81 GLUC 123* 123* ANION 10 13 CA 7.6* 8.1* MG 2.0 2.0 P 2.5* 2.6* WBC 11.33* 11.69* HB 8.8* 10.0* HCT 27.0* 29.5* PLT 308 309 PHYSICAL EXAM: General appearance: resting calmy, responding to commands, asking for diet Skin: Skin color, texture, turgor normal, no suspicious rashes or lesions (more content not included)...[facility]03-07-2022 NoteHNO ID: [id number] Author: Donato Ordaz MD Service: Orthopaedic Surgery Author Type: Physician Type: Progress Notes Filed: 01/04/2022 1:46 PM Note Text: ORTHOPAEDIC SURGERY DAILY PROGRESS NOTE ORTHO STAFF: Patient seen and examined. Agree with resident assessment and plan noted below. Now that he is conversant, we reviewed all images of his pelvis and hip dislocation, and left foot. Discussed conservative management of the calcaneus and right wrist/thumb at least initially. Answered all questions. Donato Ordaz MD ASSESSMENT: 36 yo M with L hip acetabulum fracture/dislocation s/p reduction and traction pin, L calcaneus fracture, R distal radius fracture and R 1st metacarpal base fracture POD3 from ORIF acetabulum PLAN: -Maintain splint to the left lower and right upper extremities: keep dry, clean and intact -Aquacel dressing placed this morning. -PT/OT: Non-weightbearing with the left lower extremity with posterior hip precautions; non-weightbearing with the right upper extremity -DVT PPX: Lovenox 30 mg BID x 21 days; SCDs -Post-Operative Antibiotics: Ancef 2g q6H for 24 hours post op from an orthopaedic standpoint -Heterotopic Ossification PPX: Rad Onc consult -Post-Operative AP Pelvis X-Ray ordered -Johns: Management per trauma -Maintain aquacel dressing to the left hip x 7 days (azalea in incision) -Ice to the left hip -Pain control per trauma -Disposition per trauma. Further surgical interventions to left calcaneus fractures planning, will manage right upper extremity fractures conservatively per Dr. Campbell INTERVAL HPI: Doing okay this morning from a pain perspective. Was attempting to pull out lines overnight. Otherwise interview still difficult at this time due to mental status. OBJECTIVE: BP 122/80 Pulse 103 Temp 36.5 ?C (97.7 ?F) Resp 11 Ht 182.9 cm (6') Wt 107.5 kg (236 lb 15.9 oz) SpO2 99% BMI 32.14 kg/m? Exam: General: Still somnolent, but able to answer questions and respond to commands. Left Lower Extremity: Alignment normal. No gross deformities. No swelling, ecchymosis, or erythema. Patient found without dressing. There was mild soaking of the stacey pad underneath him near the incision. Splint to left leg c/d/i SILT to toes Wiggles toes. DP/PT pulses palpable; BCR all digits. Right Upper Extremity: Splint in place, soft restraints at wrist. Compartments of the arm and forearm are soft and compressible. The patient tolerates passive stretch of the digits. +AIN/PIN/U motor function. SILT M/U/R. BCR to the digits of the hand. Recent Labs 01/04/22 0239 01/03/22 0342 01/02/22 0424 CREAT 0.72* 0.81 0.86 BUN 17 12 11 NA 141 143 144 K 4.0 3.8 3.7 CHLOR 110* 107* 108* CO2 21* 23 25 ANION 10 13 11 GLUC 123* 123* 121* CA 7.6* 8.1* 8.1* P 2.5* 2.6* 2.4* MG 2.0 2.0 1.9 WBC 11.33* 11.69* 10.64 HB 8.8* 10.0* 9.9* HCT 27.0* 29.5* 28.7* PLT 308 309 282 COAGS: APTT 23.8 12/29/2021 INR 0.9 12/29/2021 SED RATE/CRP: No results found for this basename: wsr:*,crp:* Imaging: No new orthopedic imaging Cedrick Bueno MD January 04, 2022 6:02 [facility]03-06-2022 NoteHNO ID: [id number] Author: Mandeep Wray DO Service: General Surgery Author Type: Resident Type: Progress Notes Filed: 01/03/2022 7:20 AM Note Text: Attestation signed by Bin Sánchez MD at 01/03/2022 12:47 PM Attending Note I personally saw and examined the patient. I reviewed the resident's note. I agree with the resident's assessment and plan unless otherwise noted. Signature: Bin Sánchez MD Date: 01/03/2022 Time: 12:47 PM Trauma Surgery Progress Note SERVICE DATE: 01/03/2022 Trauma Service Pager: For questions or concerns Mon-Fri 6a-5p please page [phone]. After 5pm and on Weekends and Holidays, please page [phone] if in ICU or [phone] if on RNF. SUBJECTIVE: NAEO. On ketamine gtt and precedex. Opened eyes to command. Resting comfortably OBJECTIVE: Vitals: Temp (24hrs), Av ?C (98.6 ?F), Min:36.4 ?C (97.52 ?F), Max:37.7 ?C (99.86 ?F) BP 129/74 Pulse (!) 124 Temp 37.7 ?C (99.86 ?F) Resp 28 Ht 182.9 cm (6') Wt 109.7 kg (241 lb 13.5 oz) SpO2 99% BMI 32.80 kg/m? O2 Therapy: Room Air IANDO: Date 01/02/22699 - 01/03/2265801/03/22699 - 01/04/22658 Shift 9298-9762 6664-4757 6179-5042 24 Hour Total 9309-0053 7526-0337 3263-2232 24 Hour Total INTAKE IV 1074.2 1509.7 109.7 2693.6 Volume (mL) 334.6 160.5 19.7 514.8 Volume (mL) 34.6 51.2 90 175.8 Volume (mL) (potassium phosphate 45 mmol in NaCl 0.9% 500 mL) 500 500 Volume (mL) (ceFAZolin iv piggyback 2 g in D5W (iso-osmotic) 100 mL (ANCEF)) 100 100 200 Volume (mL) (dextrose 5% in NaCl 0.9% iv infusion) 238 436 9279 Irrigants 90 90 180 Irrigant/Flush Amount In (GI Feed Assessment Naris) 90 90 180 Gastric Tube 253 340 361 954 Supplements/Additives (mL) (GI Feed Assessment Naris) 230 60 290 Tube Feed Intake (I/O) (GI Feed Assessment Naris) 253 110 301 664 Shift Total 1327.2 1939.7 560.7 3827.6 OUTPUT Urine 1050 040 185 4102 Output ( Indwelling Urinary Catheter 12/31/21 0200 Coude) 1050 609 890 6831 # of BMs Number of BMs 0 x 0 x Shift Total 1050 798 110 1350 Weight (kg) 101.2 101.2 109.7 109.7 109.7 109.7 109.7 109.7 MEDICATIONS: Current Facility-Administered Medications Medication Dose Route Frequency - potassium phosphate 45 mmol in NaCl 0.9% 500 mL 45 mmol INTRAVENOUS ONCE - PHENobarbital 65 mg injection 65 mg INTRAVENOUS q 8 H PRN - HYDROmorphone 1 mg injection (DILAUDID) 1 mg INTRAVENOUS q 2 H PRN - dextrose 5% in NaCl 0.9% iv infusion 100 mL/hr INTRAVENOUS CONTINUOUS - ketamine 500 mg in NaCl 0.9% 100 mL (KETALAR) 0.3-0.8 mg/kg/hr (Amorita) INTRAVENOUS CONTINUOUS - mupirocin 2 % 0.5 g nasal ointment (BACTROBAN) 0.5 g NASAL BID - QUEtiapine 100 mg tab(s) (SEROquel) 100 mg ORAL BID - haloperidol lactate 5 mg short-acting injection (HALDOL) 5 mg INTRAVENOUS q 4 H PRN - potassium-sodium phosphates 1 Packet (NEUTRA-PHOS,PHOS-NAK) 1 Packet ORAL TID - enoxaparin 30 mg injection (LOVENOX) 30 mg SUBCUTANEOUS BID - acetaminophen 975 mg CUP (TYLENOL) 975 mg ORAL QID - oxyCODONE 10-15 mg oral liquid (ROXICODONE) 10-15 mg ORAL q 4 H PRN - gabapentin 300 mg oral liquid (NEURONTIN) 300 mg ORAL TID - polyethylene glycol 3350 17 g packet (MIRALAX, GLYCOLAX) 17 g ORAL DAILY - ondansetron 4 mg tab(s) (ZOFRAN) 4 mg ORAL q 6 H PRN Or - ondansetron (PF) 4 mg injection (ZOFRAN) 4 mg INTRAVENOUS q 6 H PRN - sodium chloride 0.9 % (flush) 3-5 mL (BD POSIFLUSH) 3-5 mL INTRAVENOUS q 12 H - lidocaine 4 % 1 Patch (SALONPAS) 1 Patch TRANSDERMAL DAILY AT 9 PM And - lidocaine patch - REMOVE OTHER DAILY And - lidocaine - VERIFY PATCH OTHER q 8 H - dexAMETHasone 0.1 % 4 Drop (DEXASOL) 4 Drop RIGHT EAR BID And - ciprofloxacin 0.3 % 4 Drop (CILOXAN) 4 Drop RIGHT EAR BID - NaCl 0.9% iv flush bag 20 mL INTRAVENOUS PRN - dexmedeTOMIDine 400 mcg in NaCl 0.9% 100 mL (PRECEDEX) 0.2-1.5 mcg/kg/hr INTRAVENOUS CONTINUOUS Labs: Recent Labs 01/03/22 0342 01/02/22 0424 NA 143 144 K 3.8 3.7 CHLOR 107* 108* CO2 23 25 BUN 12 11 CREAT 0.81 0.86 GLUC 123* 121* ANION 13 11 CA 8.1* 8.1* MG 2.0 1.9 P 2.6* 2.4* WBC 11.69* 10.64 HB 10.0* 9.9* HCT 29.5* 28.7* PLT 309 282 PHYSICAL EXAM: General appearance: sedated on vent - followed minimal commands Skin: Skin color, texture, turgor normal, no suspicious rashes or lesions Head: Normocephalic, no masses, lesions, tenderness or abnormalities Lungs: no resp distress, normal saturations on room air Heart: tachycardia overnight Abdomen: soft, ND, NTTP Extremities: left ren, RUE splint, LLE in splint Neuro: sedated ASSESSMENT AND PLAN: Active Hospital Problems Diagnosis Date Noted - Closed subcondylar fracture of right side of mandible (HCC) 01/01/2022 - Nicotine use disorder, F17.2 12/30/2021 - Trauma 12/29/2021 - Delirium 12/29/2021 - Symptom of dr (more content not included)...[facility] 01-03-2022 NoteHNO ID: [id number] Author: Aidee Sargent MD Service: Orthopaedic Surgery Author Type: Resident Type: Progress Notes Filed: 01/03/2022 7:33 AM Note Text: ORTHOPAEDIC SURGERY DAILY PROGRESS NOTE ASSESSMENT: 36 yo M with L hip acetabulum fracture/dislocation s/p reduction and traction pin, L calcaneus fracture, R distal radius fracture and R 1st metacarpal base fracture POD2 from ORIF acetabulum PLAN: -Maintain splint to the left lower and right upper extremities: keep dry, clean and intact -PT/OT: Non-weightbearing with the left lower extremity with posterior hip precautions; non-weightbearing with the right upper extremity -DVT PPX: Lovenox 30 mg BID x 21 days; SCDs -Post-Operative Antibiotics: Ancef 2g q6H for 24 hours post op from an orthopaedic standpoint -Heterotopic Ossification PPX: Rad Onc consult -Post-Operative AP Pelvis X-Ray ordered -Johns: Management per trauma -Maintain aquacel dressing to the left hip x 7 days (azalea in incision) -Ice to the left hip -Pain control per trauma -Disposition per trauma. Further surgical interventions to left calcaneus fractures planning, will manage right upper extremity fractures conservatively per Dr. Campbell INTERVAL HPI: Continues to require some sedation. This morning is responding better and able to answer questions when asked. Pain controlled, doesn't know really what has happened to him. Per nursing this is the most awake he has been since arriving in the ICU. OBJECTIVE: BP 124/69 Pulse 120 Temp 37 ?C (98.6 ?F) Resp 25 Ht 182.9 cm (6') Wt 109.7 kg (241 lb 13.5 oz) SpO2 98% BMI 32.80 kg/m? Exam: General: Still somnolent, but able to answer questions and respond to commands. Left Lower Extremity: Alignment normal. No gross deformities. No swelling, ecchymosis, or erythema. Dressing c/d/i Splint to left leg c/d/i SILT to toes Wiggles toes. DP/PT pulses palpable; BCR all digits. Right Upper Extremity: Splint in place, soft restraints at wrist. Compartments of the arm and forearm are soft and compressible. The patient tolerates passive stretch of the digits. +AIN/PIN/U motor function. SILT M/U/R. BCR to the digits of the hand. Recent Labs 01/03/22 0342 01/02/22 0424 01/01/22 0400 CREAT 0.81 0.86 0.86 BUN 12 11 14 NA 143 144 140 K 3.8 3.7 3.5* CHLOR 107* 108* 106* CO2 23 25 26 ANION 13 11 8* GLUC 123* 121* 122* CA 8.1* 8.1* 8.2* P 2.6* 2.4* 2.7 MG 2.0 1.9 2.0 WBC 11.69* 10.64 8.59 HB 10.0* 9.9* 9.7* HCT 29.5* 28.7* 27.5* PLT 309 282 215 COAGS: APTT 23.8 12/29/2021 INR 0.9 12/29/2021 SED RATE/CRP: No results found for this basename: wsr:*,crp:* Imaging: No new orthopedic imaging Aidee Sargent MD Orthopedic Surgery Resident 01/03/2022 6:17 [facility]03-05-2022 NoteHNO ID: [id number] Author: Ml Mitchell MD Service: General Surgery Author Type: Resident Type: Progress Notes Filed: 01/02/2022 7:59 AM Note Text: Attestation signed by Bin Sánchez MD at 01/02/2022 12:38 PM Attending Note I personally saw and examined the patient. I reviewed the resident's note. I agree with the resident's assessment and plan unless otherwise noted. Signature: Bin Sánchez MD Date: 01/02/2022 Time: 12:38 PM Trauma Surgery Progress Note SERVICE DATE: 01/02/2022 Trauma Service Pager: For questions or concerns Mon-Fri 6a-5p please page [phone]. After 5pm and on Weekends and Holidays, please page [phone] if in ICU or [phone] if on RNF. SUBJECTIVE: Patient does follow commands occasionally per bedside nurse. Still on precedex. OBJECTIVE: Vitals: Temp (24hrs), Av.3 ?C (97.3 ?F), Min:21.2 ?C (70.16 ?F), Max:38 ?C (100.4 ?F) BP 118/75 Pulse (!) 121 Temp 36.5 ?C (97.7 ?F) Resp 26 Ht 182.9 cm (6') Wt 101.2 kg (223 lb 1.7 oz) SpO2 99% BMI 30.26 kg/m? O2 Therapy: Room Air IANDO: Date 01/01/22699 - 01/02/22 0601/02/22699 - 01/03/22 0659 Shift 0170-3641 5687-8047 4166-2084 24 Hour Total 4559-1738 1682-6053 0690-8241 24 Hour Total INTAKE IV 281.3 1294.1 583 2158.4 Volume (mL) 161.3 89.1 383 633.4 Volume (mL) (NaCl 0.9% iv flush bag) 20 5 25 Volume (mL) (ceFAZolin iv piggyback 2 g in D5W (iso-osmotic) 100 mL (ANCEF)) 200 200 Volume (mL) (ceFAZolin 2 g in D5W 100 mL (ANCEF)) 100 100 Volume (mL) (lactated ringers iv infusion) 1200 1200 Gastric Tube 5 5 Tube Feed Intake (I/O) (GI Feed Assessment Naris) 5 5 Shift Total 281.3 1299.1 583 2163.4 OUTPUT Urine 800 5914 082 2745 OR Urine Output 400 400 Output ( Indwelling Urinary Catheter 12/31/21 0200 Coude) 800 9354 542 7172 # of BMs Number of BMs 0 x 0 x 0 x Blood 150 150 Estimated Blood loss 150 150 Shift Total 800 6394 599 3006 Weight (kg) 101.2 101.2 101.2 101.2 101.2 101.2 101.2 101.2 MEDICATIONS: Current Facility-Administered Medications Medication Dose Route Frequency - PHENobarbital 65 mg injection 65 mg INTRAVENOUS q 8 H PRN - HYDROmorphone 1 mg injection (DILAUDID) 1 mg INTRAVENOUS q 2 H PRN - dextrose 5% in NaCl 0.9% iv infusion 100 mL/hr INTRAVENOUS CONTINUOUS - potassium phosphate 45 mmol in NaCl 0.9% 500 mL 45 mmol INTRAVENOUS ONCE - ketamine 500 mg in NaCl 0.9% 100 mL (KETALAR) 0.3-0.8 mg/kg/hr (Amorita) INTRAVENOUS CONTINUOUS - mupirocin 2 % 0.5 g nasal ointment (BACTROBAN) 0.5 g NASAL BID - ceFAZolin iv piggyback 2 g in D5W (iso-osmotic) 100 mL (ANCEF) 2 g INTRAVENOUS q 6 HR - QUEtiapine 100 mg tab(s) (SEROquel) 100 mg ORAL BID - haloperidol lactate 5 mg short-acting injection (HALDOL) 5 mg INTRAVENOUS q 4 H PRN - potassium-sodium phosphates 1 Packet (NEUTRA-PHOS,PHOS-NAK) 1 Packet ORAL TID - enoxaparin 30 mg injection (LOVENOX) 30 mg SUBCUTANEOUS BID - acetaminophen 975 mg CUP (TYLENOL) 975 mg ORAL QID - oxyCODONE 10-15 mg oral liquid (ROXICODONE) 10-15 mg ORAL q 4 H PRN - gabapentin 300 mg oral liquid (NEURONTIN) 300 mg ORAL TID - polyethylene glycol 3350 17 g packet (MIRALAX, GLYCOLAX) 17 g ORAL DAILY - ondansetron 4 mg tab(s) (ZOFRAN) 4 mg ORAL q 6 H PRN Or - ondansetron (PF) 4 mg injection (ZOFRAN) 4 mg INTRAVENOUS q 6 H PRN - sodium chloride 0.9 % (flush) 3-5 mL (BD POSIFLUSH) 3-5 mL INTRAVENOUS q 12 H - lidocaine 4 % 1 Patch (SALONPAS) 1 Patch TRANSDERMAL DAILY AT 9 PM And - lidocaine patch - REMOVE OTHER DAILY And - lidocaine - VERIFY PATCH OTHER q 8 H - dexAMETHasone 0.1 % 4 Drop (DEXASOL) 4 Drop RIGHT EAR BID And - ciprofloxacin 0.3 % 4 Drop (CILOXAN) 4 Drop RIGHT EAR BID - NaCl 0.9% iv flush bag 20 mL INTRAVENOUS PRN - dexmedeTOMIDine 400 mcg in NaCl 0.9% 100 mL (PRECEDEX) 0.2-1.5 mcg/kg/hr INTRAVENOUS CONTINUOUS Labs: Recent Labs 01/02/22 0424 01/01/22 0400 NA 144 140 K 3.7 3.5* CHLOR 108* 106* CO2 25 26 BUN 11 14 CREAT 0.86 0.86 GLUC 121* 122* ANION 11 8* CA 8.1* 8.2* MG 1.9 2.0 P 2.4* 2.7 WBC 10.64 8.59 HB 9.9* 9.7* HCT 28.7* 27.5* PLT 282 215 PHYSICAL EXAM: PHYSICAL EXAMINATION: General appearance: mild distress, agitated Skin: Skin color, texture, turgor normal, no suspicious rashes or lesions Head: Normocephalic, no masses, lesions, tenderness or abnormalities Eyes: Anicteric sclera. Pupils are equally round and reactive to light. Extraocular movements are intact. Lungs: no resp distress, normal saturations on room air Heart: tachycardia Abdomen: Normal abdominal exam Extremities: left ren, RUE splint Neuro: eye open, answer questions with some coherent speech ASSESSMENT AND PLAN: Active Hospital Problems Diagnosis Date Noted - Closed subcondylar fracture of right side of mandible (HCC) (more content not included)...[facility]03-05-2022 NoteHNO ID: [id number] Author: Donato Ordaz MD Service: Orthopaedic Surgery Author Type: Physician Type: Progress Notes Filed: 01/02/2022 10:05 AM Note Text: ORTHOPAEDIC SURGERY DAILY PROGRESS NOTE ORTHO STAFF: Agree with resident assessment and plan noted below. Plan to continue conservative management right wrist and thumb (confirmed with Dr. Campbell) and left calcaneus. Will review with patient when able to maintain conversation about his injuries. Post-op films left acetabulum okay. Reviewed surgical procedure in detail with his father yesterday. Donato Ordaz MD ASSESSMENT: 36 yo M with L hip acetabulum fracture/dislocation s/p reduction and traction pin, L calcaneus fracture, R distal radius fracture and R 1st metacarpal base fracture POD1 from ORIF acetabulum PLAN: -Maintain splint to the left lower and right upper extremities: keep dry, clean and intact -PT/OT: Non-weightbearing with the left lower extremity with posterior hip precautions; non-weightbearing with the right upper extremities -DVT PPX: Lovenox 30 mg BID x 21 days; SCDs -Post-Operative Antibiotics: Ancef 2g q6H for 24 hours from an orthopaedic standpoint -Heterotopic Ossification PPX: Rad Onc consult -Post-Operative AP Pelvis X-Ray ordered -Johns: Management per trauma -Maintain aquacel dressing to the left hip x 7 days (azalea in incision) -Ice to the left hip -Pain control per trauma -Disposition per trauma. Further surgical interventions to the right distal radius, right first metacarpal and left calcaneus fractures planning.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
--- OUTSIDE RECORDS SUMMARY | 2025-04-26 19:21 | XMS RPT_ITS | CCD ---
Author Organization [facility] Care Team Providers Care Avionics Supervisor Name Role Phone Unavailable Primary Care Provider Unavailabl e Care Physician, No Primary Primary Care Provider Unavailable Andres SWAN, Dr. Williamson Emergency Provider Rojas SWAN, Dr. Baker Attending Provider [phone] Rojas SWAN, Dr. Baker Admit Provider [phone] Rojas SWAN, Dr. Baker Referring Provider Medications Current Medications Medication Drug Class(es) Dates Sig (Normalized) Sig (Original) [place] (Nk) (1 source) Start: 04-26-2025 [place] (Nk) A ctive April 26, 2025 12:00am [...] Opioid overdose, accidental or unintentional, initial encounter ([facility]) 04-26-2025 Results Test Name Value Interpretation Reference Range Facility Absolute lymphocyte countOrd ered By: Juana Lafleur on 04-26-2025 Lymphocytes Auto (Unsp spec) [#/Vol] 2.95 10*3/uL 0.83-4.51 [facility] Absolute neutrophil countOrd ered By: Juana Lafleur on 04-26-2025 Neutrophils (Bld) [#/Vol] 4.5 10*3/uL 2.0-7.7 [facility] Amphetamine detection with 1 000 ng/mL as cutoffOrdered By: Juana Lafleur on 04-26-2025 Amphetamines Screen method >1000 ng/mL Ql (U) Positive <1000 ng/mL [facility] Comment on above: If confirmation test ing is needed, a separate order will be required to send out testing to the reference laboratory. Amphetamines Screen method >1000 ng/mL Ql (U) Negative < 200 ng/mL [facility] Anion gap in Serum or Plasma Ordered By: Juana Lafleur on 04-26-2025 Anion gap [Moles/Vol] 10 mmol/L 5-15 [facility] Automated lymphocyte count a s percentage of total leukocytesOrdered By: Juana Lafleur on 04-26-2025 Lymphocytes/100 WBC Auto (Unsp spec) 35.8 % 19-41 [facility] BUN/creatinine ratioOrdered By: Juana Lafleur on 04-26-2025 Urea nitrogen/Creatinine [Mass ratio] 8.6 mg/mg Low 10-20 [facility] Basophil percentageOrdered B y: Juana Lafleur on 04-26-2025 Basophils/100 WBC (Bld) 0.8 % 0-1 [facility] Carbon dioxide, total [Moles /volume] in Central venous bloodOrdered By: Juana Lafleur on 04-26-2025 CO2 [Moles/Vol] 26.1 mmol/L 21.0-32.0 [facility] Chloride assayOrdered By: Hiral Lafleur on 04-26-2025 Chloride [Moles/Vol] 108 mmol/L 98-108 [facility] Eosinophil percentageOrdered By: Juana Lafleur on 04-26-2025 Eosinophils/100 WBC (Bld) 1.9 % 0-5 [facility] Erythrocyte distribution wid th ratioOrdered By: Juana Lafleur on 04-26-2025 Erythrocyte distribution width (RBC) [Ratio] 12.7 % 11.6-14.6 [facility] Erythrocyte distribution wid th standard deviationOrdered By: Juana Lafleur on 04-26-2025 Erythrocyte distribution width (RBC) [Ratio] 40.2 fl 35.1-43.9 [facility] Glomerular filtration rate ( GFR) estimation/1.73 sq m using serum, plasma, or whole bOrdered By: Juana Lafleur on 04-26-2025 GFR/1.73 sq M.predicted among non-blacks MDRD (S/P/Bld) [Vol rate/Area] 99 mL/min/{1.73_m2} >60 [facility] Comment on above: mL/min/1.73m2 CKD-EP I Creatinine Equation (2020) Hematocrit Auto (Bld) [Volum e fraction]Ordered By: Juana Lafleur on 04-26-2025 Hematocrit (Bld) [Volume fraction] 41.6 % 40-54 [facility] Hemoglobin measurementOrdere d By: Juana Lafleur on 04-26-2025 Hemoglobin (Bld) [Mass/Vol] 14.1 g/dL 13.0-16.5 [facility] Immature granulocytes/100 WB C Auto (Bld)Ordered By: Juana Lafleur on 04-26-2025 Immature granulocytes/100 WBC (Bld) 0.400 % 0.0-0.9 [facility] Comment on above: IG% - Immature Granu locytes (promyelocytes, myelocytes and metamyelocytes) > 1% indicates that a LEFT SHIFT is Present. Laboratory - Drug toxicology on 04-26-2025 Amphetamines Screen method >1000 ng/mL Ql (U) Positive [facility] Barbiturates Screen method >200 ng/mL Ql (U) Negative [facility] Benzodiazepines Ql (U) Positive [facility] Methadone Screen Ql (U) Negative S [facility] Opiates Screen Ql (U) Negative [facility] oxyCODONE Ql (U) Negative [facility] Phencyclidine Ql (U) Negative [facility] MCV (mean corpuscular volume ) determinationOrdered By: Juana Lafleur on 04-26-2025 MCV (RBC) [Entitic vol] 86.3 fL 80-94 [facility] Mean corpuscular hemoglobin (MCH) determinationOrdered By: Juana Lafleur on 04-26-2025 MCH (RBC) [Entitic mass] 29.3 pg 27.0-32.0 [facility] Mean corpuscular hemoglobin concentration (MCHC) determinationOrdered By: Juana Lafleur on 04-26-2025 MCHC (RBC) [Mass/Vol] 33.9 g/dL 32-36 [facility] Mean platelet volume determi nationOrdered By: Juana Lafleur on 04-26-2025 Platelet mean volume (Bld) [Entitic vol] 10.7 fL 6.2-12.0 [facility] Monocyte percentageOrdered B y: Juana Lafleur on 04-26-2025 Monocytes/100 WBC (Bld) 6.3 % 0-10 [facility] Neutrophil percentageOrdered By: Juana Lafleur on 04-26-2025 Neutrophils/100 WBC (Bld) 54.8 % 47-70 [facility] No Panel InformationOrdered By: Juana Lafleur on 04-26-2025 Urine Buprenorphine Qualitative Negative < 200 ng/mL [facility] Urine Oxycodone Screen Negative < 100 ng/mL [facility] No Panel Informationon 04-26 COCAINE METAB. SCREEN Negative [facility] FENTANYL SCREEN, UR QUAL Positive [facility] The expected value f or all [...] is needed, request confirmation under separate order. [facility] Nucleated red blood cell per centageOrdered By: Juana Lafleur on 04-26-2025 Nucleated RBC/100 WBC (Bld) [Ratio] 0 % 0-5 [facility] Platelet countOrdered By: Hiral Lafleur on 04-26-2025 Platelets (Bld) [#/Vol] 235 10*3/uL 150-450 [facility] Potassium measurement (mass/ volume)Ordered By: Juana Lafleur on 04-26-2025 Potassium (Unsp spec) [Mass/Vol] 3.7 mmol/L 3.3-5.1 [facility] Quantitative urine opiates m easurementOrdered By: Juana Lafleur on 04-26-2025 Opiates Ql (U) Negative < 300 ng/mL [facility] RBC Auto (Bld) [#/Vol]Ordere d By: Juana Lafleur on 04-26-2025 RBC (Bld) [#/Vol] 4.82 10*6/uL 4.6-6.2 [facility] Screening urine fentanyl renetta surementOrdered By: Juana Lafleur on 04-26-2025 fentaNYL Screen Ql (U) Positive [facility] Comment on above: If confirmation test ing is needed, a separate order will be required to send out testing to the reference laboratory. Serum creatinine measurement (mass/volume)Ordered By: Juana Lafleur on 04-26-2025 Creatinine [Mass/Vol] 0.99 mg/dL 0.70-1.20 [facility] Serum glucose measurement (m ass/volume)Ordered By: Juana Lafleur on 04-26-2025 Glucose [Mass/Vol] 83 mg/dL 70-99 [facility] Serum or plasma calcium delfino urement (mass/volume)Ordered By: Juana Lafleur on 04-26-2025 Calcium [Mass/Vol] 9.1 mg/dL 7.6-11.0 [facility] Serum or plasma ethanol delfino urement (mass/volume)Ordered By: Juana Lafleur on 04-26-2025 Ethanol [Mass/Vol] mg/dL <10.1 [facility] Comment on above: This test is for med ical purposes only. The legal definition of intoxication varies according to local law. Serum or plasma urea nitroge n measurement (mass/volume)Ordered By: Juana Lafleur on 04-26-2025 Urea nitrogen [Mass/Vol] 9 mg/dL 4-19 [facility] Sodium levelOrdered By: Dirk Lafleur on 04-26-2025 Sodium [Moles/Vol] 145 mmol/L 133-145 [facility] Urine benzodiazepine levelOr dered By: Juana Lafleur on 04-26-2025 Benzodiazepines Ql (U) Positive < 200 ng/mL [facility] Comment on above: If confirmation test ing is needed, a separate order will be required to send out testing to the reference laboratory. Urine cocaine levelOrdered B y: Juana Lafleur on 04-26-2025 Cocaine Ql (U) Negative < 300 ng/mL [facility] Urine dyrmk-6-opnejofpzgyoph abinol (THC) measurementOrdered By: Juana Lafleur on 04-26-2025 Cannabinoids Screen Ql (U) Negative < 50 ng/mL [facility] Urine phencyclidine (PCP) de tectionOrdered By: Juana Lafleur on 04-26-2025 Phencyclidine Ql (U) Negative < 25 ng/mL [facility] White blood cell (WBC) count Ordered By: Juana Lafleur on 04-26-2025 WBC (Bld) [#/Vol] 8.3 10*3/uL 4.4-11.0 [facility] CBC W Auto Differential pane l (Bld)Ordered [...] [#/Vol] 5.7 10*3/uL 1.8 - 7.5 10*3/uL [facility] Neutrophils/100 WBC (Bld) 59.6 % 38.0 - 82.0 % [facility] Nucleated RBC/100 WBC (Bld) [Ratio] 0 % [facility] Platelet mean volume (Bld) [Entitic vol] 10.6 fL 9.0 - 12.7 fL [facility] Comment on above: MPV is a calculated measurement using platelet volume ratio Platelets (Bld) [#/Vol] 262 10*3/uL 140 - 440 10*3/uL [facility] RBC (Bld) [#/Vol] 4.81 10*6/uL 4.40 - 5.9 0 10*6/uL [facility] WBC (Bld) [#/Vol] 9.5 10*3/uL 3.6 - 10.7 10*3/uL [facility] Comprehensive metabolic 1998 panelon 04-25-2025 Albumin [Mass/Vol] 4 g/dL 3.5 - 5.0 g/dL [facility] ALP [Catalytic activity/Vol] 107 U/L 40 - 150 U/L [facility] ALT [Catalytic activity/Vol] 10 U[facility] Anion gap [Moles/Vol] 11 mmol/L 3 - 13 mmol/L [facility] AST [Catalytic activity/Vol] 23 U/[facility] U/L [facility] Bilirubin [Mass/Vol] 0.4 mg/dL [facility] 1.[facility] mg/dL [facility] Calcium [Mass/Vol] 8.9 mg/dL 8.4 - 10. 2 mg/dL [facility] Chloride [Moles/Vol] 107 mmol/L 98 - 10 7 mmol/L [facility] CO2 [Moles/Vol] 26 mmol/L 22 - 29 mmol/L [facility] Creatinine [Mass/Vol] 1.4 mg/dL High 0.72 - 1.25 mg/dL [facility] GFR/1.73 sq M.predicted (S/P/Bld) [Vol rate/Area] 65.2 mL/min - PINF [facility] Comment on above: Calculation based on the Chronic Kidney Disease Epidemiology Collaboration (CKD-EPI) equation refit without adjustment for race Glucose [Mass/Vol] 98 mg/dL 74 - 100 mg/dL [facility] Interpretation and review of laboratory results Abnormal [facility] Potassium [Moles/Vol] 3.1 mmol/L Low 3.5 - 5.1 mmol/L [facility] Comment on above: Plasma potassium matty ues may be up to 0.5 mmol/L lower than serum values. Protein [Mass/Vol] 7 g/dL 6.4 - 8.3 g/dL [facility] Sodium [Moles/Vol] 144 mmol/L 136 - 145 mmol/L [facility] Urea nitrogen [Mass/Vol] 13 mg/dL 8 - 21 mg/d L [facility] Ethanol (Bld) [Mass/Vol]on 0 04-25-2025 Ethanol [Mass/Vol] mg/dL NINF - 10 mg/dL [facility] Interpretation and review of laboratory results Normal [facility] PROJECT CONTROL ANALYST depression is se en >100 mg/dL. NOTE: This result is for medical treatment only. Analysis performed using non-forensic procedures. [facility] Laboratory - Microbiology an d Antimicrobial susceptibilityOrdered By: Nohemi Lund on 04-25-2025 SARS-CoV-2 (COVID-19) Ag IA.rapid Ql (Resp) Negative Negative [facility] Comment on above: A negative result do es not rule out the possibility of SARS-CoV-2 infection. NAAT-based methods should be considered for symptomatic patients presenting greater than seven days after onset of symptoms. Method: Lateral flow immunoassay. Fact sheets for healthcare providers and patients can be found at the following sites: https://www.fda.gov/media/880953/download https://www.fda.gov/media/192781/download No Panel InformationOrdered By: Nicola Crouch on 04-25-2025 P Charmco 68 degrees [facility] [employer] Work Phone: [place] Interval 141 ms [facility] [employer] Work Phone: QRS Charmco 48 degrees [facility] [employer] Work Phone: QRSD Interval 114 ms [facility] [employer] [employer] Work Phone: QT Interval 322 ms [facility] [employer] Work Phone: QTC Interval 429 ms [facility] [employer] Work Phone: T Wave Charmco 28 degrees [facility] [employer] Work Phone: [facility] Work Phone: No Panel Informationon 04-25 Sinus tachycardia Borderline intraventricular conduction delay Electronically Signed On 04-25-2025 22:46:41 EDT by Nicola Crouch CV Nicola Flores MD - 04/25/2025 IMPRESSION: Sinus tachycardia Borderline intraventricular conduction delay Electronically Signed On 04-25-2025 22:46:41 EDT by Nicola Crouch [facility] SARS-CoV-2 (COVID-19) Ag IA. rapid Ql (Resp)Ordered By: Nohemi Lund on 04-25-2025 Interpretation and review of laboratory results Normal [facility] Urinalysis complete panel (U )Ordered By: Dorene Mcgraw on 04-25-2025 Bacteria LM.HPF (Urine sed) [#/Area] Few Abnormal Negative /HPF [facility] Bilirubin Ql (U) Negative Negative mg/dL [facility] Clarity (U) Clear Clear [facility] Color (U) Yellow Lt. Yellow [facility] Epithelial cells.squamous LM.HPF (Urine sed) [#/Area] 3-5 [facility] h Glucose Ql (U) Normal Normal (<70) mg/dL [facility] Hemoglobin Ql (U) Negative Negative mg/dL [facility] Interpretation and review of laboratory results Abnormal [facility] Ketones (U) [Mass/Vol] Trace Abnormal Negat micaela mg/dL [facility] Leukocyte esterase Test strip Ql (U) Negative Negative Sarabjit/uL [facility] Mucus LM.HPF (Urine sed) [#/Area] Moderate Abnormal Negative /LPF [facility] Nitrite Ql (U) Negative Negative [facility] th pH (U) 6.0 [pH] 5.0 - 8.0 pH [facility] Protein (U) [Mass/Vol] 30 mg/dL Abnormal Negative [facility] RBC LM.HPF (Urine sed) [#/Area] 6-10 Abnormal [facility] Specific gravity (U) [Rel density] 1.03 1.005 - 1.030 [facility] Urobilinogen (U) [Mass/Vol] 2 mg/dL Abnormal Normal (0-1) [facility] Volume, Urine 12 mL [facility] WBC LM.HPF (Urine sed) [#/Area] 3-5 [facility] A specimen with <=10 WBC is not consistent with inflammation. This specimen will not reflex to a urine culture. [facility] Vital signsOrdered By: Nicola Crouch on 04-25-2025 Heart rate 106 /min bpm [facility] [employer] Work Phone: CNPNon 02-08-2022 CNPN Telephone (AGPOB1) SILVIO BRIZUELA ([id number]) 1985 M Date Time Provider Department 02/08/22 LEONARD NAGEL AGPOB1 During your visit today, we recorded the following information about you: Sheryl Durham 02/08/2022 3:31 PM Signed Destiny from [employer], [id number], asked for the status of the medical necessity documentation needing 's signature, for a wheelchair for the patient. She stated it was faxed on 01/27 and 02/03. Tommie Ojeda was the ordering user, and Dr. Nagel was the authorized provider. does not have the document for signature. Yaya in the [facility] does not have the document. Did not locate document in the shared fax folder. Asked Destiny to refax the form to 's attention and note that it is the third attempt. Sheryl Durham February 08, 2022 3:30 PM Sheryl Durham 02/09/2022 8:21 AM Signed Documentation located in mailbox of [facility]. Handed it to Yaya who said [...] Status:Closed by SHERYL DURHAM on 02/09/[address] [facility] CNOVon 01-27-2022 CNOV Office Visit ([facility] ) SILVIO BRIZUELA ([id number]) 1985 M Date Time Provider Department 01/27/22 8:00 AM [place] [facility] During your visit today, we recorded the [...] weeks, w (more content not included)... Normal [facility] CNOVon 01-15-2022 CNOV Office Visit ([facility] ) SILVIO BRIZUELA ([id number]) 1985 M Date Time Provider Department 01/15/22 9:45 AM [place] [facility] During your visit today, we recorded the [...] hip is approximated without evidence of erythema/drainage [place] intact. Pin site wounds over left leg [...] S52.591D Functional Plan: NWB RUE, NWB LLE Theatrical Scenic Designer Devices: Wheelchair ordered. Use prn Physical/Occupational Therapy: [...] Date: 01/19/2022. Time: 12:58 PM Referring Provider: [place] ED PROVIDER [[id number]] Allergies As of Date: 01/15/2022 (No Known Allergies) Date Reviewed: 01/15/2022 Reviewed by: Cedrick Bueno MD - Fully Assessed Reason for Visit: Established Patient [175] Established Patient [175] Established Patient [175] Established Patient [175] Primary Visit Diagnosis:Closed displaced fracture of left acetabulu (more content not included)... Normal [facility] CNPNon 01-11-2022 CNPN Telephone (AGPOB1) SILVIO BRIZUELA ([id number]) 1985 M Date Time Provider Department 01/11/22 AG ORTH AGPOB1 During your visit today, we recorded the following information about you: Nahomi Bautista Dee Vernon Ppg 01/11/2022 12:05 PM Signed Patient's sister, Ashley, is calling because the patient left the Hospital AMA and she is requesting home care for him now. Is this something you would order or should he follow up with the [facility]? Nahomi Dee Telemarketing Manager Ppg January 11, 2022 12:05 PM Nahomi Dee Vernon Ppg 01/11/2022 12:43 PM Signed Donato Ordaz [...] withdrawal (HCC) [F11.23]01/03/2022 Encounter Status:Closed by VALENCIA ECHO TECHNOLOGIST NAHOMI POLLARD on 01/11/[address] [facility] Basic Metabolic Profile (BMP )on 01-06-2022 BUN Normal 7-18 [facility] Comment on above: Result Comment: DISC HARGED Performed By: #### L 100.0100, L500.2500 #### [facility] [address] [place], [address] BUN/CRE Normal 10-20 [facility] Comment on above: Result Comment: DISC HARGED Performed By: #### L 100.0100, L500.2500 #### [facility] [address] [place], [address] CA,Total Normal 8.5-10.1 [facility] Comment on above: Result Comment: DISC HARGED Performed By: #### L 100.0100, L500.2500 #### [facility] [address] [place], [address] CL Normal 98-107 [facility] Comment on above: Result Comment: DISC HARGED Performed By: #### L 100.0100, L500.2500 #### [facility] [address] [place], [address] CO2 Normal 21.0-32.0 [facility] Comment on above: Result Comment: DISC HARGED Performed By: #### L 100.0100, L500.2500 #### [facility] [address] [place], [address] CREAT,SERUM Normal 0.70-1.30 [facility] Comment on above: Result Comment: DISC HARGED Performed By: #### L 100.0100, L500.2500 #### [facility] [address] [place], [address] EST GFR Normal >60 [facility] Comment on above: Result Comment: DISC HARGED Performed By: #### L 100.0100, L500.2500 #### [facility] [address] [place], [address] EST GFR - AA Normal >60 [facility] Comment on above: Result Comment: DISC HARGED Performed By: #### L 100.0100, L500.2500 #### [facility] [address] [place], [address] GAP Normal 5-15 [facility] Comment on above: Result Comment: DISC HARGED Performed By: #### L 100.0100, L500.2500 #### [facility] [address] [place], [address] GLU Normal 74-106 [facility] Comment on above: Result Comment: DISC HARGED Performed By: #### L 100.0100, L500.2500 #### [facility] [address] [place], [address] Potassium Normal 3.5-5.1 [facility] Comment on above: Result Comment: DISC HARGED Performed By: #### L 100.0100, L500.2500 #### [facility] [address] [place], [address] Basic Metabolic Profile (BMP) Normal 136-145 [facility] Comment on above: Result Comment: DISC HARGED Performed By: #### L 100.0100, L500.2500 #### [facility] [address] [place], [address] CBC W/Diff, Automatedon 03-0 -2021 Absolute Neut Normal 2.0-7.7 [facility] Comment on above: Result Comment: DISC HARGED Performed By: #### L 100.0100, L500.2500 #### [facility] [address] [place], [address] HCT Normal 40-54 [facility] Comment on above: Result Comment: DISC HARGED Performed By: #### L 100.0100, L500.2500 #### [facility] [address] [place], [address] HGB Normal 13.0-16.5 [facility] Comment on above: Result Comment: DISC HARGED Performed By: #### L 100.0100, L500.2500 #### [facility] [address] [place], [address] MCH Normal 27.0-32.0 [facility] Comment on above: Result Comment: DISC HARGED Performed By: #### L 100.0100, L500.2500 #### [facility] [address] [place], [address] MCHC Normal 32-36 [facility] Comment on above: Result Comment: DISC HARGED Performed By: #### L 100.0100, L500.2500 #### [facility] [address] [place], [address] MCV Normal 80-94 [facility] Comment on above: Result Comment: DISC HARGED Performed By: #### L 100.0100, L500.2500 #### [facility] [address] [place], [address] NEUT% Normal 47-70 [facility] Comment on above: Result Comment: DISC HARGED Performed By: #### L 100.0100, L500.2500 #### [facility] [address] [place], [address] PLT Normal 150-450 [facility] Comment on above: Result Comment: DISC HARGED Performed By: #### L 100.0100, L500.2500 #### [facility] [address] [place], [address] RBC Normal 4.6-6.2 [facility] Comment on above: Result Comment: DISC HARGED Performed By: #### L 100.0100, L500.2500 #### [facility] [address] [place], [address] RDW CV Normal 11.6-14.6 [facility] Comment on above: Result Comment: DISC HARGED Performed By: #### L 100.0100, L500.2500 #### [facility] [address] [place], [address] RDW SD Normal 35.1-43.9 [facility] Comment on above: Result Comment: DISC HARGED Performed By: #### L 100.0100, L500.2500 #### [facility] [address] [place], [address] WBC Normal 4.4-11.0 [facility] Comment on above: Result Comment: DISC HARGED Performed By: #### L 100.0100, L500.2500 #### [facility] [address] [place], [address] COVID 19, MARVA WC(RT COLLECT )on 01-06-2022 PROBE CHECK Normal [facility] Comment on above: Result Comment: DISC HARGED Performed By: #### L 3400.2405 ####[facility] [address] [place], [address] SARS-CoV-2 (COVID-19) RNA MARVA+probe Ql (Unsp spec) Normal Not Detect [facility] Comment on above: Result Comment: DISC HARGED Performed By: #### L 3400.2405 ####[facility] [address] [place], [address] SARSInt. QC ok Normal [facility] Comment on above: Result Comment: DISC HARGED Performed By: #### L 3400.2405 ####[facility] [address] [place], [address] SPC Normal [facility] Comment on above: Result Comment: DISC HARGED Performed By: #### L 3400.2405 ####[facility] [address] [place], [address] Gram Stainon 01-06-2022 GS left hip incision Gram Stain No organisms seen No cells seen Normal [facility] Comment on above: Performed By: #### M 100.2000, M100.3000 #### [facility] [address] [place], [address] Wound Cultureon 01-06-2022 WC left hip incision No growth aerobically. Normal [facility] Comment on above: Performed By: #### M 100.2000, M100.3000 #### [facility] [address] [place], [address] Basic Metabolic Profile (BMP )on 01-05-2022 BUN/CRE 18.9 RATIO Normal 10-20 [facility] Comment on above: Performed By: #### L 100.0100, L500.2500 #### [facility] [address] [place], [address] CA,Total 8.6 mg/dL Normal 8.5-10.1 [facility] Comment on above: Performed By: #### L 100.0100, L500.2500 #### [facility] [address] [place], [address] Chloride [Moles/Vol] 102 mmol/L Normal 98-107 [facility] Comment on above: Performed By: #### L 100.0100, L500.2500 #### [facility] [address] [place], [address] CO2 [Moles/Vol] 29.0 mmol/L Normal 21.0-32.0 [facility] Comment on above: Performed By: #### L 100.0100, L500.2500 #### [facility] [address] [place], [address] Creatinine [Mass/Vol] 0.84 mg/dL Normal 0.70-1.30 [facility] Comment on above: Result Comment: The validity of the calculated GFR GFRAA in patients over 70 years has not been determined. Clinical correlation is essential. Performed By: #### L 100.0100, L500.2500 #### [facility] [address] [place], [address] ECRCL 132.16 ml/min Normal [facility] Comment on above: Performed By: #### L 100.0100, L500.2500 #### [facility] [address] [place], [address] EST GFR - AA 131 mL/min Normal >60 [facility] Comment on above: Result Comment: Afri can [place] GFR Calc Performed By: #### L 100.0100, L500.2500 #### [facility] [address] [place], [address] GAP 5 Normal 5-15 [facility] Comment on above: Performed By: #### L 100.0100, L500.2500 #### [facility] [address] [place], [address] GFR/1.73 sq M.predicted among non-blacks MDRD (S/P/Bld) [Vol rate/Area] 108 mL/min/{1.73_m2} Normal >60 [facility] Comment on above: Result Comment: Non- GFR Calc Performed By: #### L 100.0100, L500.2500 #### [facility] [address] [place], [address] Glucose [Mass/Vol] 132 mg/dL High 74-106 [facility] Comment on above: Result Comment: Fast ing Glucose result greater than or equal to 126 mg/dL suggests DIABETES MELLITUS per A.D.A. criteria. Performed By: #### L 100.0100, L500.2500 #### [facility] [address] [place], [address] Potassium [Moles/Vol] 3.7 mmol/L Normal 3.5-5.1 [facility] Comment on above: Performed By: #### L 100.0100, L500.2500 #### [facility] [address] [place], [address] Sodium [Moles/Vol] 136 mmol/L Normal 136-145 [facility] Comment on above: Performed By: #### L 100.0100, L500.2500 #### [facility] [address] [place], [address] Urea nitrogen [Mass/Vol] 16 mg/dL Normal 7-18 [facility] Comment on above: Performed By: #### L 100.0100, L500.2500 #### [facility] [address] [place], [address] CBC W/Diff, Automatedon 03-0 Absolute Lymph 3.06 X10 3/uL Normal 0.83-4.51 [facility] Comment on above: Performed By: #### L 100.0100, L500.2500 #### [facility] [address] [place], [address] Absolute Neut 6.4 X10 3/uL Normal 2.0-7.7 [facility] Comment on above: Performed By: #### L 100.0100, L500.2500 #### [facility] [address] [place], [address] Basophils/100 WBC (Bld) 0.7 % Normal 0-1 [facility] Comment on above: Performed By: #### L 100.0100, L500.2500 #### [facility] [address] [place], [address] Eosinophils/100 WBC (Bld) 2.6 % Normal 0-5 [facility] Comment on above: Performed By: #### L 100.0100, L500.2500 #### [facility] [address] [place], [address] Erythrocyte distribution width (RBC) [Ratio] 13.6 % Normal 11.6-14.6 [facility] Comment on above: Performed By: #### L 100.0100, L500.2500 ####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 Comment on above: Order Comment: Speci men Type: BLOOD SPECIMEN [facility] Address: [address] [place] [address] Performed By: #### I CA #### [facility] CLIA [id number] 1 [place] [address] [place] CONSULT PROGon 01-03-2022 CONSULT PROG HNO ID: [id number] Author: Aurora Garner MD Service: General Surgery Author Type: Physician Type: Consult Progress Note Filed: 01/03/2022 10:38 AM Note Text: INPATIENT SICU PROGRESS NOTE SICU Service Pager: For questions or concerns Mon-Fri 6a-5p please page [phone]. After 5pm and on Weekends and Holidays, please page [phone]. SERVICE DATE: 01/03/2022 Subjective Patient is better [...] NaCl 0.9% 100 mL (KETALAR) 0.3-0.8 mg/kg/hr ([place]) INTRAVENOUS CONTINUOUS - mupirocin 2 % 0.5 [...] 01/02/22699 - 01/03/2265801/03/22699 - 01/04/22 0659 Shift 7767-0949 1523-2737 0238-5030 24 Hour Total 3965-8421 1293-3385 5699-2456 24 Hour Total INTAKE IV 1074.2 1509.7 109.7 2693.6 Volume (mL) 334.6 160.5 19.7 514.8 Volume (mL) 34.6 51.2 90 175.8 Volume (mL) (potassium phosphate 45 mmol in NaCl 0.9% 500 mL) 500 500 Volume (mL) (ceFAZolin iv piggyback 2 g in D5W (iso-osmotic) 100 mL (ANCEF)) 100 100 200 Volume (mL) (dextrose 5% in NaCl 0.9% iv infusion) 376 716 0621 Irrigants 90 90 180 Irrigant/Flush Amount In (GI Feed Assessment Naris) 90 90 180 Gastric Tube 253 340 361 954 Supplements/Additives (mL) (GI Feed Assessment Naris) 230 60 290 Tube Feed Intake (I/O) (GI Feed Assessment Naris) 253 110 301 664 Shift Total 1327.2 1939.7 560.7 3827.6 OUTPUT Urine 1050 666 577 6365 Output ( Indwelling Urinary Catheter 12/31/21 0200 [place]) 1050 889 720 8900 # of BMs Number of BMs 0 x 0 x Shift Total 1050 300 903 2365 Weight (kg) 101.2 101.2 109.7 109.7 109.7 [...] Drug Wit (more content not included)... Normal [facility] Magnesium SerPl-mCncon 01-03 Magnesium [Mass/Vol] 2.0 mg/dL Normal 1.7-2.3 [facility] Comment on above: Order Comment: Speci men Type: BLOOD SPECIMEN [facility] Address: [address] [place], [place] [address] Performed By: #### I CA #### [facility] CLIA [id number] [address] [place] [address] OF [facility] NURSING PROGon 01-03-2022 NURSING PROG HNO ID: [id number] Author: Heather Pina RN Service: Nursing Author Type: Registered Nurse Type: Nursing Progress Note Filed: 01/03/2022 8:03 PM Note Text: Nursing Progress: Topic: RESTRAINT NON-VIOLENT PATIENT NAME: Silvio Brizuela PATIENT LOCATION: [place] [address] [address] 81* The patient demonstrates Confusion, Lack of [...] TIME: 8:02 PM Heather Pina RN Normal [facility] NURSING PROG HNO ID: [id number] Author: Angelique Roberts RN Service: ADT-SICU Author Type: Registered Nurse Type: Nursing Progress Note Filed: 01/04/2022 3:20 AM Note Text: Nursing Progress: Topic: RESTRAINT NON-VIOLENT PATIENT NAME: Silvio Brizuela PATIENT LOCATION: [place] [address] [address] 81* The patient demonstrates Confusion, Lack of [...] TIME: 3:19 AM Angelique Roberts RN Normal [facility] Phosphate SerPl-mCncon 01-03 Phosphate [Mass/Vol] 2.6 mg/dL Low 2.7-4.8 [facility] Comment on above: Order Comment: Speci kandy Type: BLOOD SPECIMEN [facility] Address: [address] [place] [address] Performed By: #### I CA #### [facility] CLIA [id number] 1 [place] [address] [place] Basic metabolic 2000 panelon 01-02-2022 Anion gap [Moles/Vol] 11 mmol/L Normal 9-18 [facility] Comment on above: Order Comment: Speci men Type: BLOOD SPECIMENOrdering Facility: [facility] Address: [address] [place] [address] Performed By: #### 1 9123-9, 27704-30, 55627-9 ####[facility] [id number] [place] [address] [place] Calcium [Mass/Vol] 8.1 mg/dL Low 8.5-10.2 [facility] Comment on above: Order Comment: Speci men Type: BLOOD SPECIMENOrdering Facility: [facility] Address: [address] [place] [address] Performed By: #### 1 9123-9, 27704-30, 71439-7 ####[facility] [id number] [place] [address] [place] Chloride [Moles/Vol] 108 mmol/L High 97-105 [facility] Comment on above: Order Comment: Speci men Type: BLOOD SPECIMENOrdering Facility: [facility] Address: [address] [place] [address] Performed By: #### 1 9123-9, 2776-10, ####[facility] [id number] [address] [place] CO2 [Moles/Vol] 25 mmol/L Normal 22-30 [facility] Comment on above: Order Comment: Speci men Type: BLOOD SPECIMENOrdering Facility: [facility] Address: [address] [place] [address] Performed By: #### 1 9123-9, 27704-30, 84497-5 ####[facility] [id number] [place] [address] [place] Creatinine [Mass/Vol] 0.86 mg/dL Normal 0.73-1.22 [facility] Comment on above: Order Comment: Speci men Type: BLOOD SPECIMENOrdering Facility: [facility] Address: [address] [place] [address] Performed By: #### 1 9123-9, 2777-, 64247-2 ####[facility] [id number] [address] ESTIMATED GLOMERULAR FILTRATION RATE 114 mL/min/1.73m??? Normal >=60 [facility] Comment on above: Order Comment: Preston kandy Type: BLOOD SPECIMENOrdering Facility: [facility] Address: [address] [place] [address] Result Comment: Tyra mated Glomerular Filtration Rate [...] GFR. Performed By: #### 1 9123-9, 2777-, 32343-5 ####[facility] [id number] [address] OF [facility] Glucose [Mass/Vol] 121 mg/dL High 74-99 [facility] Comment on above: Order Comment: Preston gaitan Type: BLOOD SPECIMENOrdering Facility: [facility] Address: [address] [place] [address] Result Comment: The [place] Diabetes Association (ADA) provides guidance for cutoff [...] Standards of Medical Care in Diabetes 2016, [place] [employer]. Diabetes Care. 2016.39(Suppl 1). Performed By: #### 1 9123-9, 2777-, 18600-2 ####[facility] [id number] [address] STATES OF [facility] Potassium [Moles/Vol] 3.7 mmol/L Normal 3.7-5.1 [facility] Comment on above: Order Comment: Speci men Type: BLOOD SPECIMENOrdering Facility: [facility] Address: [address] [place] [address] Performed By: #### 1 9123-9, 2777-1, 38380-5 ####[facility] [id number] [address] STATES OF [facility] Sodium [Moles/Vol] 144 mmol/L Normal 136-144 [facility] Comment on above: Order Comment: Speci men Type: BLOOD SPECIMENOrdering Facility: [facility] Address: [address] [place] [address] Performed By: #### 1 9123-9, 2777-1, 91840-0 ####[facility] [id number] [address] STATES OF [facility] Urea nitrogen [Mass/Vol] 11 mg/dL Normal 9-24 [facility] Comment on above: Order Comment: Speci men Type: BLOOD SPECIMENOrdering Facility: [facility] Address: [address] [place] [address] Performed By: #### 1 9123-9, 2777-1, 41626-5 ####[facility] [id number] [address] [place] CALCIUM IONIZED Bon 01-03-20 22 Calcium.ionized (BldV) [Mass/Vol] 1.08 mmol/L Normal 1.08-1.30 [facility] Comment on above: Order Comment: Speci men Type: BLOOD SPECIMEN [facility] Address: [address] [place] [address] Performed By: #### I CA #### [facility] CLIA [id number] [address] [place] Calcium.ionized adjusted to pH 7.4 (Bld) [Moles/Vol] 1.12 mmol/L Normal 1.08-1.30 [facility] Comment on above: Order Comment: Speci men Type: BLOOD SPECIMEN [facility] Address: [address] [place] [address] Performed By: #### I CA #### [facility] CLIA [id number] [address] CBC panel Auto (Bld)on 01-02 Erythrocyte distribution width (RBC) [Ratio] 12.6 % Normal 11.5-15.0 [facility] Comment on above: Order Comment: Speci men Type: URINE SPECIMEN [facility] Address: [address] [place] [address] Performed By: #### 2 4356-8 #### [facility] CLIA [id number] [address] Hematocrit (Bld) [Volume fraction] 28.7 % Low 39.0-51.0 [facility] Comment on above: Order Comment: Speci men Type: URINE SPECIMEN [facility] Address: [address] [place] [address] Performed By: #### 2 4356-8 #### [facility] CLIA [id number] [address] Hemoglobin (Bld) [Mass/Vol] 9.9 g/dL Low 13.0-17.0 [facility] Comment on above: Order Comment: Speci men Type: URINE SPECIMEN [facility] Address: [address] [place] [address] Performed By: #### 2 4356-8 #### [facility] CLIA [id number] [address] MCH (RBC) [Entitic mass] 29.7 pg Normal 26.0-34.0 [facility] Comment on above: Order Comment: Speci men Type: URINE SPECIMEN [facility] Address: [address] [place] [address] Performed By: #### 2 4356-8 #### [facility] CLIA [id number] [address] MCHC (RBC) [Mass/Vol] 34.5 g/dL Normal 30.5-36.0 [facility] Comment on above: Order Comment: Speci men Type: URINE SPECIMEN [facility] Address: [address] [place] [address] Performed By: #### 2 4356-8 #### [facility] CLIA [id number] [address] MCV (RBC) [Entitic vol] 86.2 fL Normal 80.0-100.0 [facility] Comment on above: Order Comment: Speci men Type: URINE SPECIMEN [facility] Address: [address] [place] [address] Performed By: #### 2 4356-8 #### [facility] CLIA [id number] [address] Nucleated RBC (Bld) [#/Vol] 10*3/uL Normal <0.01 [facility] Comment on above: Order Comment: Speci men Type: URINE SPECIMEN [facility] Address: [address] [place] [address] Performed By: #### 2 4356-8 #### [facility] CLIA [id number] [address] Platelet mean volume (Bld) [Entitic vol] 10.4 fL Normal 9.0-12.7 [facility] Comment on above: Order Comment: Speci men Type: URINE SPECIMEN [facility] Address: [address] [place] [address] Performed By: #### 2 4356-8 #### [facility] CLIA [id number] [address] [place] Platelets (Bld) [#/Vol] 282 10*3/uL Normal 150-400 [facility] Comment on above: Order Comment: Speci men Type: URINE SPECIMEN [facility] Address: [address] [place] [address] Performed By: #### 2 4356-8 #### [facility] CLIA [id number] [address] RBC (Bld) [#/Vol] 3.33 10*6/uL Low 4.20-6.00 [facility] Comment on above: Order Comment: Speci men Type: URINE SPECIMEN [facility] Address: [address] [place] [address] Performed By: #### 2 4356-8 #### [facility] CLIA [id number] [address] WBC (Bld) [#/Vol] 10.64 10*3/uL Normal 3.70-11.00 [facility] Comment on above: Order Comment: Speci men Type: URINE SPECIMEN [facility] Address: [address] [place] [address] Performed By: #### 2 4356-8 #### [facility] CLIA [id number] [address] CONSULT PROGon 01-02-2022 CONSULT PROG HNO ID: [id number] Author: Aurora Garner MD Service: General Surgery Author Type: Physician Type: Consult Progress Note Filed: 01/02/2022 5:34 PM Note Text: INPATIENT SICU PROGRESS NOTE SICU Service Pager: For questions or concerns Mon-Fri 6a-5p please page [phone]. After 5pm and on Weekends and Holidays, please page [phone]. SERVICE DATE: 01/02/2022 Subjective Issues with agitation [...] 01/02/22 0659 01/02/22699 - 01/03/22 0659 Shift 1475-3960 1588-0401 5410-4212 24 Hour Total 8905-2576 1975-7272 4064-5008 24 Hour Total INTAKE IV 281.3 1294.1 [...] 281.3 1299.1 583 2163.4 OUTPUT Urine 800 7548 764 2815 OR Urine Output 400 400 Output ( Indwelling Urinary Catheter 12/31/21 0200 [place]) 800 5258 391 0775 # of BMs Number of BMs 0 x 0 x 0 x Blood 150 150 Estimated Blood loss 150 150 Shift Total 800 8518 267 5310 Weight (kg) 101.2 101.2 101.2 101.2 101.2 [...] this am (more content not included)... Normal [facility] Magnesium SerPl-mCncon 01-02 Magnesium [Mass/Vol] 1.9 mg/dL Normal 1.7-2.3 [facility] Comment on above: Order Comment: Speci men Type: BLOOD SPECIMENOrdering Facility: [facility] Address: [address] [place], [place] [address] Performed By: #### 1 9123-9, 2777-1, 96261-0 ####[facility] [id number] [place] [address] [place] NURSING PROGon 01-02-2022 NURSING PROG HNO ID: [id number] Author: Heather Pina RN Service: Nursing Author Type: Registered Nurse Type: Nursing Progress Note Filed: 01/02/2022 5:30 PM Note Text: Nursing Progress: Topic: RESTRAINT NON-VIOLENT PATIENT NAME: Silvio Brizuela PATIENT LOCATION: [place] [address] [address]* The patient demonstrates Attempting to Remove [...] 2022 TIME: 5:29 PM Heather Pina RN [facility] NURSING PROG HNO ID: [id number] Author: Willa Espinoza RN Service: Nursing Author Type: Registered Nurse Type: Nursing Progress Note Filed: 01/02/2022 5:09 AM Note Text: Spoke with pharmacist Jonna and Dr Mitchell to clarify new order for phenobarbital 750mg in 100ml of ns over 30 minutes iv. Waiting for final order. [facility] NURSING PROG HNO ID: [id number] Author: Willa Espinoza RN Service: Nursing Author Type: Registered Nurse Type: Nursing Progress Note Filed: 01/02/2022 4:38 AM Note Text: notified of agitation and current vitals, new order received. Patient remains disoriented and uncooperative, unable to be redirected. Restraints remain in place and patient's spo2 98% on Room air. [facility] NURSING PROG HNO ID: [id number] Author: Willa Espinoza RN Service: Nursing Author Type: Registered Nurse Type: Nursing Progress Note Filed: 01/02/2022 3:05 AM Note Text: notified that despite ativan being given patient remains tachycardic, RR in the 30's, thrashing around in the bed, disoriented, unable to redirect. Concerns voiced and awaiting new orders. [facility] NURSING PROG HNO ID: [id number] Author: Willa Espinoza RN Service: Nursing Author [...] vitals and agitation and new order received. [facility] NURSING PROG HNO ID: [id number] Author: Willa Espinoza RN Service: Nursing Author Type: Registered Nurse Type: Nursing Progress Note Filed: 01/02/2022 2:25 AM Note Text: Patient having increased agitation despite PRN meds given and precedex gtt maxed out, patient is trashing in bed and yelling. Dr. Mitchell notified and new order received. Normal [facility] Phosphate SerPl-mCncon 01-02 Phosphate [Mass/Vol] 2.4 mg/dL Low 2.7-4.8 [facility] Comment on above: Order Comment: Speci men Type: BLOOD SPECIMENOrdering Facility: [facility] Address: [address] [place], [place] [address] Performed By: #### 1 9123-9, 2777-1, 85697-9 ####[facility]ORYCLIA [id number] [address] [place] ALLIED HEALTHon 01-01-2022 ALLIED HEALTH HNO ID: [id number] Author: RT Bharathi(R) Service: ? Author Type: Technologist Type: Allied Health Filed: 01/01/2022 5:55 PM Note Text: Radiology Service Progress Note PATIENT NAME: Silvio ALVARADON: [id number] DATE OF SERVICE: January 01, 2022 TIME: [...] RT Bharathi(R) January 01, 2022 5:54 PM [facility] ALLIED HEALTH HNO ID: [id number] Author: Gordon Grimaldo II Service: Infection Prevention [...] TIME: 8:28 AM PAGER/CONTACT #: Infection Prevention, [id number] Infection Prevention after hours/weekend pager: [phone] [facility] ANES POSTPROC EVALon 022 ANES POSTPROC EVAL HNO ID: [id number] Author: Tanesha Enciso MD Service: Anesthesiology Author Type: Anesthesiologist Type: Anesthesia Postprocedure Evaluation Filed: 01/01/2022 6:21 PM Note Text: POST ANESTHESIA EVALUATION NOTE : 1985 Procedure Summary Date: 01/01/22 Room / Location: [place] / [place] Anesthesia Start: 1349 [...] January 01, 2022 TIME: 6:21 PM CSN: [id number] [facility] ANES PRE-OPon 01-01-2022 ANES PRE-OP HNO ID: [id number] Author: Seven Rivero MD Service: Anesthesiology Author Type: Physician Type: Anesthesia Preprocedure Evaluation Filed: 01/01/2022 12:40 PM Note Text: ANESTHESIOLOGY DAY OF SURGERY NOTE : 1985 Procedure Information Date/Time: 01/01/22 1300 Procedure: ORIF ACETABULAR WALL FX (Left Hip) - REGIONAL BLOCK/AAA, ANESTHESIA CHOICE Location: [place] / [place] Surgeons: Donato Ordaz [...] January 01, 2022 TIME: 12:38 PM CSN: [id number] [facility] BRIEF OP NOTon 01-01-2022 BRIEF OP NOT HNO ID: [id number] Author: Beto Platt MD Service: Orthopaedic Surgery Author Type: Resident Type: Brief Op Note Filed: 01/01/2022 4:57 PM Note Text: BRIEF OPERATIVE / PROCEDURE NOTE LOG ID: [id number] SURGERY/PROCEDURE DATE: 01/01/2022 INCISION/PROCEDURE START TIME: 2:31 PM INCISION CLOSE/PROCEDURE END TIME: 4:26 PM SURGEON(S)/PROCEDURALI ST(S) AND SENIOR SPECIALIST(S): Surgeon(s) and Role: * Donato Ordaz MD [...] MD Orthopaedic Surgery 01/01/2022 4:[address] [facility] Basic metabolic 2000 panelon 01-01-2022 Anion gap [Moles/Vol] 8 mmol/L Low 9-18 [facility] Comment on above: Order Comment: Speci men Type: BLOOD SPECIMEN [facility] Address: [address] [place] [address] Performed By: #### H STNT #### [facility] CLIA [id number] [address] [place] [address] [place] Calcium [Mass/Vol] 8.2 mg/dL Low 8.5-10.2 [facility] Comment on above: Order Comment: Speci men Type: BLOOD SPECIMEN [facility] Address: [address] [place] [address] Performed By: #### H STNT #### [facility] CLIA [id number] [address] [place] [address] [place] Chloride [Moles/Vol] 106 mmol/L High 97-105 [facility] Comment on above: Order Comment: Speci men Type: BLOOD SPECIMEN [facility] Address: [address] [place] [address] Performed By: #### H STNT #### [facility] CLIA [id number] [address] [place] [address] [place] CO2 [Moles/Vol] 26 mmol/L Normal 22-30 [facility] Comment on above: Order Comment: Speci men Type: BLOOD SPECIMEN [facility] Address: [address] [place] [address] Performed By: #### H STNT #### [facility] CLIA [id number] [address] [place] Creatinine [Mass/Vol] 0.86 mg/dL Normal 0.73-1.22 [facility] Comment on above: Order Comment: Preston gaitan Type: BLOOD SPECIMEN [facility] Address: [address] [place] [address] Performed By: #### H STNT #### [facility] CLIA [id number] [address] [place] ESTIMATED GLOMERULAR FILTRATION RATE 114 mL/min/1.73m??? Normal >=60 [facility] Comment on above: Order Comment: Preston kandy Type: BLOOD SPECIMEN [facility] Address: [address] [place] [address] Result Comment: Tyra mated Glomerular Filtration Rate [...] GFR. Performed By: #### H STNT #### [facility] CLIA [id number] [address] [place] [address] [place] Glucose [Mass/Vol] 122 mg/dL High 74-99 [facility] Comment on above: Order Comment: Preston kandy Type: BLOOD SPECIMEN [facility] Address: [address] [place] [address] Result Comment: The [place] [employer] (ADA) provides guidance for cutoff [...] Standards of Medical Care in Diabetes 2016, [place] [employer]. Diabetes Care. 2016.39(Suppl 1). Performed By: #### H STNT #### [facility] CLIA [id number] [address] STATES OF [facility] Potassium [Moles/Vol] 3.5 mmol/L Low 3.7-5.1 [facility] Comment on above: Order Comment: Speci men Type: BLOOD SPECIMEN [facility] Address: [address] [place] [address] Performed By: #### H STNT #### [facility] CLIA [id number] [address] Sodium [Moles/Vol] 140 mmol/L Normal 136-144 [facility] Comment on above: Order Comment: Speci men Type: BLOOD SPECIMEN [facility] Address: [address] [place] [address] Performed By: #### H STNT #### [facility] CLIA [id number] [address] [place] [address] STATES OF [facility] Urea nitrogen [Mass/Vol] 14 mg/dL Normal 9-24 [facility] Comment on above: Order Comment: Speci men Type: BLOOD SPECIMEN [facility] Address: [address] [place] [address] Performed By: #### H STNT #### [facility] CLIA [id number] [address] [place] [address] [place] CALCIUM IONIZED Bon 01-02-20 22 Calcium.ionized (BldV) [Mass/Vol] 1.08 mmol/L Normal 1.08-1.30 [facility] Comment on above: Order Comment: Speci men Type: BLOOD SPECIMEN [facility] Address: [address] [place] [address] Performed By: #### I CA #### [facility] CLIA [id number] [address] [place] [address] Calcium.ionized adjusted to pH 7.4 (Bld) [Moles/Vol] 1.11 mmol/L Normal 1.08-1.30 [facility] Comment on above: Order Comment: Speci men Type: BLOOD SPECIMEN [facility] Address: [address] [place] [address] Performed By: #### I CA #### [facility] CLIA [id number] [address] [place] CASE MANAGEMon 01-01-2022 CASE MANAGEM HNO ID: [id number] Author: OSEAS Michele Service: ? Author Type: Velvet Weaver Type: Care Mgt Progress Note Filed: 01/01/2022 [...] 01, 2022 TIME: 11:13 AM PAGER/CONTACT #: [phone] [facility] CBC panel Auto (Bld)on 01-01 Erythrocyte distribution width (RBC) [Ratio] 12.1 % Normal 11.5-15.0 [facility] Comment on above: Order Comment: Speci men Type: BLOOD SPECIMEN [facility] Address: [address] [place] [address] Performed By: #### I CA #### [facility] CLIA [id number] [address] STATES OF [facility] Hematocrit (Bld) [Volume fraction] 27.5 % Low 39.0-51.0 [facility] Comment on above: Order Comment: Speci men Type: BLOOD SPECIMEN [facility] Address: [address] [place] [address] Performed By: #### I CA #### [facility] CLIA [id number] [address] [place] [address] [place] Hemoglobin (Bld) [Mass/Vol] 9.7 g/dL Low 13.0-17.0 [facility] Comment on above: Order Comment: Speci men Type: BLOOD SPECIMEN [facility] Address: [address] [place] [address] Performed By: #### I CA #### [facility] CLIA [id number] [address] MCH (RBC) [Entitic mass] 29.9 pg Normal 26.0-34.0 [facility] Comment on above: Order Comment: Speci men Type: BLOOD SPECIMEN [facility] Address: [address] [place] [address] Performed By: #### I CA #### [facility] CLIA [id number] [address] MCHC (RBC) [Mass/Vol] 35.3 g/dL Normal 30.5-36.0 [facility] Comment on above: Order Comment: Speci men Type: BLOOD SPECIMEN [facility] Address: [address] [place] [address] Performed By: #### I CA #### [facility] CLIA [id number] [address] MCV (RBC) [Entitic vol] 84.9 fL Normal 80.0-100.0 [facility] Comment on above: Order Comment: Speci men Type: BLOOD SPECIMEN [facility] Address: [address] [place] [address] Performed By: #### I CA #### [facility] CLIA [id number] [address] Nucleated RBC (Bld) [#/Vol] 10*3/uL Normal <0.01 [facility] Comment on above: Order Comment: Speci men Type: BLOOD SPECIMEN [facility] Address: [address] [place] [address] Performed By: #### I CA #### [facility] CLIA [id number] [address] [place] Platelet mean volume (Bld) [Entitic vol] 10.9 fL Normal 9.0-12.7 [facility] Comment on above: Order Comment: Speci men Type: BLOOD SPECIMEN [facility] Address: [address] [place] [address] Performed By: #### I CA #### [facility] CLIA [id number] [address] [place] Platelets (Bld) [#/Vol] 215 10*3/uL Normal 150-400 [facility] Comment on above: Order Comment: Speci men Type: BLOOD SPECIMEN [facility] Address: [address] [place] [address] Performed By: #### I CA #### [facility] CLIA [id number] [address] [place] RBC (Bld) [#/Vol] 3.24 10*6/uL Low 4.20-6.00 [facility] Comment on above: Order Comment: Speci men Type: BLOOD SPECIMEN [facility] Address: [address] [place] [address] Performed By: #### I CA #### [facility] CLIA [id number] [address] OF [facility] WBC (Bld) [#/Vol] 8.59 10*3/uL Normal 3.70-11.00 [facility] Comment on above: Order Comment: Speci men Type: BLOOD SPECIMEN [facility] Address: [address] [place] [address] Performed By: #### I CA #### [facility] CLIA [id number] [address] [place] Magnesium SerPl-mCncon 01-01 Magnesium [Mass/Vol] 2.0 mg/dL Normal 1.7-2.3 [facility] Comment on above: Order Comment: Speci men Type: BLOOD SPECIMEN [facility] Address: [address] [place], [place] [address] Performed By: #### H STNT #### [facility] CLIA [id number] [address] [place] [id number] [facility] NURSING PROGon 01-01-2022 NURSING PROG HNO ID: [id number] Author: Willa Espinoza RN Service: Nursing Author Type: Registered Nurse Type: Nursing Progress Note Filed: 01/02/2022 3:08 AM Note Text: Nursing Progress: Topic: RESTRAINT NON-VIOLENT PATIENT NAME: Silvio Brizuela PATIENT LOCATION: [place] [address]* The patient demonstrates Attempting to Remove Medical [...] 2022 TIME: 3:07 AM Willa Espinoza RN [facility] NURSING PROG HNO ID: [id number] Author: Sarika Lynn RN Service: ? Author Type: Registered Nurse Type: Nursing Progress Note Filed: 01/01/2022 9:05 AM Note Text: Nursing Progress: Topic: RESTRAINT NON-VIOLENT PATIENT NAME: Silvio Brizuela PATIENT LOCATION: [place] [address] [address]* The patient demonstrates Attempting to Remove Medical [...] 2022 TIME: 9:05 AM Sarika Lynn RN [facility] OPERATIVE NOon 01-01-2022 OPERATIVE NO HNO ID: [id number] Author: Donato Ordaz MD Service: Orthopaedic Surgery Author Type: Physician Type: Operative Report Filed: 01/04/2022 12:22 PM Note Text: OPERATIVE/PROCEDURE REPORT LOG ID: [id number] SURGERY/PROCEDURE DATE: 01/01/2022 INCISION/PROCEDURE START TIME: 2:31 PM INCISION CLOSE/PROCEDURE END TIME: 4:26 PM SURGEON(S)/PROCEDURALI ST(S) AND SENIOR SPECIALIST(S): Surgeon(s) and Role: * Donato Ordaz MD - Primary * Beto Platt MD - Resident - Assisting * Jameel Villalpando MD - Resident - Assisting No Additional Staff SURGERY/PROCEDURE(S): 1) Open Reduction Internal Fixation Left Posterior Wall Acetabulum Fracture (CPT 47870) 2) Removal of Left Lower Extremity External Fixator (CPT 79832) 3) Application of Splint to Left Lower Extremity (CPT 27474) ANESTHESIA: 1) General ANTIBIOTICS: 1) Ancef 2g IV MEDICATION: 1) TXA 1g IV SURGERY/PROCEDURE DETAILS: 36 year old male presented to [facility] on 12/29/2021 as a level II [...] pre-operative time-out was conducted in accordance with [facility] policy. The patient was identified with [...] out was then conducted in accordance with [facility]. After agreement by all members of [...] the f (more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 Registered Nurse Type: Nursing Progress Note Filed: 12/29/2021 12:53 PM Note Text: Nursing Progress: Topic: RESTRAINT NON-VIOLENT PATIENT NAME: Silvio Brizuela PATIENT LOCATION: [place] [address]* The patient demonstrates Attempting to Remove Medical [...] TIME: 12:53 PM Dorene Rosen RN Normal [facility] NURSING PROG HNO ID: [id number] Author: Cali Krueger RN Service: Nursing Author [...] to the ICU for closer observation. Normal [facility] NURSING PROG HNO ID: [id number] Author: Betzy Bonilla RN Service: ? Author Type: Registered Nurse Type: Nursing Progress Note Filed: 12/29/2021 12:37 PM Note Text: Nursing Progress Note Patient Name: Silvio Brizuela Patient Location: [place] [address] [address] 0- 08:00 - Patient agitated, pulling on [...] This note was completed by: Betzy Bonilla [facility] NURSING PROG HNO ID: [id number] Author: Betzy Bonilla RN Service: ? Author Type: Registered Nurse Type: Nursing Progress Note Filed: 12/29/2021 10:42 AM Note Text: Nursing Progress Note Patient Name: Silvio Brizuela Patient Location: [place] [address] [address] 0-01 RN unable to insert johns into patient. Strong resistance when inserting. Patient had blood and clots when removing johns. Coude johns inserted at 09:30 This note was completed by: Betzy Bonilla [facility] PT panel Coag (PPP)on 2021 INR Coag (PPP) [Relative time] 0.9 {INR} Normal 0.9-1.3 [facility] Comment on above: Order Comment: Speci men Type: BLOOD SPECIMEN [facility] Address: [address] [place] [phone] Result Comment: Marisa min K Antagonist (VKA) Therapeutic Range: INR 2 to 3 (Target INR of 2.5) Note: For patients treated with VKA drugs, such as warfarin, the [place] 2012 Guideline recommends [...] Chest 2012, 141:7S-47S Delia RUTHERFORD, et al. [facility] 2017, 70: 252-289 Performed By: #### 1 4979-9, 34410-5 #### [facility] CLIA [id number] [address] PT Coag (PPP) [Time] 10.5 s Normal 9.7-13.0 [facility] Comment on above: Order Comment: Speci men Type: BLOOD SPECIMEN [facility] Address: [address] [place] [address] Performed By: #### 1 4979-9, 94630-1 #### [facility] CLIA [id number] [address] THERAPY NTon 12-29-2021 THERAPY NT HNO ID: [id number] Author: Daquan Freed PT Service: Physical Therapy Author Type: Physical Therapist Type: Therapy (PT/OT/Speech/Resp) Filed: 12/29/2021 7:47 AM Note Text: PHYSICAL THERAPY MISSED VISIT SERVICE DATE: 12/29/2021 SERVICE TIME: 0746 to 07 ROOM: [place] [address] Chart reviewed. Patient not seen due to Incomplete Orders (pt in traction to left tibia, plan OR today). Will reattempt as able/appropriate. SIGNATURE: Daquan Freed PT PATIENT NAME: Silvio Brizuela DATE: December 29, 2021 TIME: 7:[address] [facility] TOX SCREEN ROUT URon 022 Amphetamines Confirm (U) [Mass/Vol] Positive Abnormal Negative [facility] Comment on above: Order Comment: Speci men Type: BLOOD SPECIMEN [facility] Address: [address] [place] [address] Result Comment: Cuto ff threshold at 1000 ng/mL. Performed By: #### H STNT #### [facility] CLIA [id number] [address] BARBITURATES, URINE Negative Normal Negative [facility] Comment on above: Order Comment: Speci men Type: BLOOD SPECIMEN [facility] Address: [address] [place] [address] Result Comment: Cuto ff threshold at 200 ng/mL. Performed By: #### H STNT #### [facility] CLIA [id number] [address] BENZODIAZEPINES, UR Negative Normal Negative [facility] Comment on above: Order Comment: Speci men Type: BLOOD SPECIMEN [facility] Address: [address] [place] [address] Result Comment: Cuto ff threshold at 200 ng/mL. Performed By: #### H STNT #### [facility] CLIA [id number] [address] CANNABINOIDS,URINE Negative Normal Negative [facility] Comment on above: Order Comment: Speci men Type: BLOOD SPECIMEN [facility] Address: [address] [place] [address] Result Comment: Cuto ff threshold at 50 ng/mL. Performed By: #### H STNT #### [facility] CLIA [id number] [address] Cocaine Ql (U) Negative Normal Negative [facility] Comment on above: Order Comment: Speci men Type: BLOOD SPECIMEN [facility] Address: [address] [place] [address] Result Comment: Cuto ff threshold at 300 ng/mL. Performed By: #### H STNT #### [facility] CLIA [id number] [address] OF [place] Ethanol (U) [Mass/Vol] <11 Normal <11 [facility] Comment on above: Order Comment: Speci men Type: BLOOD SPECIMEN Order[facility] Address: [address] [place] [address] Performed By: #### H STNT #### [facility] CLIA [id number] [address] OF [place] Opiates Screen Ql (U) Negative Normal Negative [facility] Comment on above: Order Comment: Speci men Type: BLOOD SPECIMEN Ordering [facility] Address: [address] [place] [address] Result Comment: Cuto ff threshold at 300 ng/mL. Performed By: #### H STNT #### [facility] CLIA [id number] [address] oxyCODONE cutoff Screen (U) [Mass/Vol] Positive Abnormal Negative [facility] Comment on above: Order Comment: Speci men Type: BLOOD SPECIMEN [facility] Address: [address] [place] [address] Result Comment: Cuto ff threshold at 100 ng/mL. Performed By: #### H STNT #### [facility] CLIA [id number] [address] Phencyclidine Ql (U) Negative Normal Negative [facility] Comment on above: Order Comment: Speci men Type: BLOOD SPECIMEN [facility] Address: [address] [place] [address] Result Comment: Cuto ff threshold at 25 ng/mL. Performed By: #### H STNT #### [facility] CLIA [id number] [address] TYPE AND SCREENon 12-29-[address] [facility] Comment on above: Order Comment: Speci men Type: BLOOD SPECIMENOrdering Facility: [facility] Address: [address] [place] [address] Performed By: #### T SCR ####[facility] [id number] [address] HISTORICAL AB SCR STATUS Negative Normal [facility] Comment on above: Order Comment: Speci men Type: BLOOD SPECIMENOrdering Facility: [facility] Address: [address] [place] [address] Performed By: #### T SCR ####[facility] [id number] [address] Rh Nom (Bld) Positive Normal [facility] Comment on above: Order Comment: Speci men Type: BLOOD SPECIMENOrdering Facility: [facility] Address: [facility] [place] [address] Performed By: #### T SCR ####[facility] [id number] [address] TYPE AND SCREEN EXPIRATION 01/01/2022 23:[address] [facility] Comment on above: Order Comment: Speci men Type: BLOOD SPECIMENOrdering Facility: [facility] Address: [address] [place] [address] Performed By: #### T SCR ####[facility] [id number] [address] Urinalysis complete panel (U )on 12-29-2021 Bacteria LM.HPF (Urine sed) [#/Area] None Seen Normal None Seen [facility] Comment on above: Order Comment: Speci men Type: URINE SPECIMEN [facility] Address: [address] [place] [address] Performed By: #### 2 4356-8 #### [facility] CLIA [id number] [address] Bilirubin Ql (U) Negative Normal Negative [facility] Comment on above: Order Comment: Speci men Type: URINE SPECIMEN [facility] Address: [address] [place] [address] Performed By: #### 2 4356-8 #### [facility] CLIA [id number] [address] Clarity (Unsp spec) Turbid Abnormal Clear [facility] Comment on above: Order Comment: Speci men Type: URINE SPECIMEN [facility] Address: [address] [place] [address] Performed By: #### 2 4356-8 #### [facility] CLIA [id number] [address] [place] [address] Color (U) Yellow Normal Yellow [facility] Comment on above: Order Comment: Speci men Type: URINE SPECIMEN [facility] Address: [address] [place] [address] Performed By: #### 2 4356-8 #### [facility] CLIA [id number] [address] Epithelial cells LM.HPF (Urine sed) [#/Area] 3.3 /[HPF] Normal [facility] Comment on above: Order Comment: Speci men Type: URINE SPECIMEN [facility] Address: [address] [place] [address] Performed By: #### 2 4356-8 #### [facility] CLIA [id number] [address] Glucose Test strip (U) [Mass/Vol] Negative Normal Negative [facility] Comment on above: Order Comment: Speci men Type: URINE SPECIMEN [facility] Address: [address] [place] [address] Performed By: #### 2 4356-8 #### [facility] CLIA [id number] [address] Hemoglobin Ql (U) Large Abnormal Negative [facility] Comment on above: Order Comment: Speci men Type: URINE SPECIMEN [facility] Address: [address] [place] [address] Performed By: #### 2 4356-8 #### [facility] CLIA [id number] [address] Hyaline casts (Urine sed) [#/Area] 1-3 /LPF Abnormal 0 /LPF [facility] Comment on above: Order Comment: Speci men Type: URINE SPECIMEN [facility] Address: [address] [place] [address] Performed By: #### 2 4356-8 #### [facility] CLIA [id number] [address] Ketones Ql (U) Negative Normal Negative [facility] Comment on above: Order Comment: Speci men Type: URINE SPECIMEN [facility] Address: [address] [place] [address] Performed By: #### 2 4356-8 #### [facility] CLIA [id number] [address] Leukocyte esterase Test strip Ql (U) Negative Normal Negative [facility] Comment on above: Order Comment: Speci men Type: URINE SPECIMEN [facility] Address: [address] [place] [address] Performed By: #### 2 4356-8 #### [facility] CLIA [id number] [address] Nitrite Ql (U) Negative Normal Negative [facility] Comment on above: Order Comment: Speci men Type: URINE SPECIMEN [facility] Address: [address] [place] [address] Performed By: #### 2 4356-8 #### [facility] CLIA [id number] [address] pH (U) 6.0 [pH] Normal 5.0-8.0 [facility] Comment on above: Order Comment: Speci men Type: URINE SPECIMEN [facility] Address: [address] [place] [address] Performed By: #### 2 4356-8 #### [facility] CLIA [id number] [address] Protein (U) [Mass/Vol] 30 mg/dL Abnormal Negative [facility] Comment on above: Order Comment: Speci men Type: URINE SPECIMEN [facility] Address: [address] [place] [address] Performed By: #### 2 4356-8 #### [facility] CLIA [id number] [address] RBC LM.HPF (Urine sed) [#/Area] 0-3 /HPF Normal 0-3 /HPF [facility] Comment on above: Order Comment: Speci men Type: URINE SPECIMEN [facility] Address: [address] [place] [address] Performed By: #### 2 4356-8 #### [facility] CLIA [id number] [address] Specific gravity (U) [Rel density] 1.043 High 1.005-1.030 [facility] Comment on above: Order Comment: Speci men Type: URINE SPECIMEN [facility] Address: [address] [place] [address] Performed By: #### 2 4356-8 #### [facility] CLIA [id number] [address] Urobilinogen Ql (U) 1.0 EU/dL Normal 0.2-1.0 EU/dL [facility] Comment on above: Order Comment: Speci men Type: URINE SPECIMEN [facility] Address: [address] [place] [address] Performed By: #### 2 4356-8 #### [facility] CLIA [id number] [address] WBC LM.HPF (Urine sed) [#/Area] 0-5 /HPF Normal 0-5 /HPF [facility] Comment on above: Order Comment: Speci men Type: URINE SPECIMEN [facility] Address: [address] [place] [address] Performed By: #### 2 4356-8 #### [facility] CLIA [id number] [address] [facility] XR CHEST 1V FRONTALon 2021 XR CHEST [...] radiographic abnormality within limits of supine technique. Boot Liner Maker: PSCB Transcribe Date/Time: Dec 29 2021 12:42A Dictated by : MICHELLE ARAUJO MD This examination was interpreted and the report reviewed and electronically signed by: MICHELLE ARAUJO MD on Dec 29 2021 12:44AM EST [id number] Normal [facility] XR FEMUR 2V AP/LAT LTon 03-0 XR [...] AP/LAT/OBL LT HISTORY: FRACTURE / POST-REDUCTION (accession [id number]), FRACTURE / POST-REDUCTION (accession [id number]), LEFT FOOT FRACTURE (accession [id number]) Fracture, femur. COMPARISON: CT pelvis same day, pelvis radiograph same day TECHNIQUE: XR FEMUR 2V AP/LAT LT, XR TIBIA FIBULA 2V AP/LAT LT, XR FOOT 3V AP/LAT/OBL LT Laterality: LEFT Number of different views (projections): 2 (accession [id number]), 2 (accession [id number]), 3 (accession [id number]) M: XB_1 FINDINGS: Femur: Left acetabular roof [...] acetabular roof fracture. No additional femur fracture. Boot Liner Maker: PSCB Transcribe Date/Time: Dec 29 2021 8:01A Dictated by : ALBERT RAMACHANDRAN MD This examination was interpreted and the report reviewed and electronically signed by: ALBERT RAMACHANDRAN MD on Dec 29 2021 8:07AM EST [id number] Normal [facility] XR FOOT 3V AP/LAT/OBL LTon 0 12-29-2021 [...] AP/LAT/OBL LT HISTORY: FRACTURE / POST-REDUCTION (accession [id number]), FRACTURE / POST-REDUCTION (accession [id number]), LEFT FOOT FRACTURE (accession [id number]) Fracture, femur. COMPARISON: CT pelvis same day, pelvis radiograph same day TECHNIQUE: XR FEMUR 2V AP/LAT LT, XR TIBIA FIBULA 2V AP/LAT LT, XR FOOT 3V AP/LAT/OBL LT Laterality: LEFT Number of different views (projections): 2 (accession [id number]), 2 (accession [id number]), 3 (accession [id number]) M: XB_1 FINDINGS: Femur: Left acetabular roof [...] acetabular roof fracture. No additional femur fracture. Boot Liner Maker: PSCB Transcribe Date/Time: Dec 29 2021 8:01A Dictated by : ALBERT RAMACHANDRAN MD This examination was interpreted and the report reviewed and electronically signed by: ALBERT RAMACHANDRAN MD on Dec 29 2021 8:07AM EST [id number] Normal [facility] XR HAND 3V PA/LAT/OBL RTon 0 12-29-2021 [...] the proximal right fifth finger and triquetrum. Boot Liner Maker: [employer] [place] Transcribe Date/Time: Dec 29 2021 2:52A Dictated by : DEBORAH MORIN MD This examination was interpreted and the report reviewed and electronically signed by: DEBORAH MORIN MD on Dec 29 2021 2:59AM EST [id number] Normal [facility] XR PELVIS 1V APon 12-29-2021 XR PELVIS [...] lying along the left superior acetabular rim. Boot Liner Maker: [employer] [place] Transcribe Date/Time: Dec 29 2021 2:50A Dictated by : DEBORAH MORIN MD This examination was interpreted and the report reviewed and electronically signed by: DEBORAH MORIN MD on Dec 29 2021 2:52AM EST [id number] Normal [facility] XR PELVIS 1V AP * * *Final [...] fracture. CT is recommended for further evaluation. Boot Liner Maker: PSCDavid Transcribe Date/Time: Dec 29 2021 12:42A Dictated by : DANA CHEN MD This examination was interpreted and the report reviewed and electronically signed by: DANA CHEN MD on Dec 29 2021 12:44AM EST [id number] Normal [facility] XR TIBIA FIBULA 2V AP/LAT LT on [...] AP/LAT/OBL LT HISTORY: FRACTURE / POST-REDUCTION (accession [id number]), FRACTURE / POST-REDUCTION (accession [id number]), LEFT FOOT FRACTURE (accession [id number]) Fracture, femur. COMPARISON: CT pelvis same day, pelvis radiograph same day TECHNIQUE: XR FEMUR 2V AP/LAT LT, XR TIBIA FIBULA 2V AP/LAT LT, XR FOOT 3V AP/LAT/OBL LT Laterality: LEFT Number of different views (projections): 2 (accession [id number]), 2 (accession [id number]), 3 (accession [id number]) M: XB_1 FINDINGS: Femur: Left acetabular roof [...] acetabular roof fracture. No additional femur fracture. Boot Liner Maker: [facility] Transcribe Date/Time: Dec 29 2021 8:01A Dictated by : ALBERT RAMACHANDRAN MD This examination was interpreted and the report reviewed and electronically signed by: ALBERT RAMACHANDRAN MD on Dec 29 2021 8:07AM EST [id number] Normal [facility] XR WRIST 2V PA/LAT RTon XR WRIST [...] first metacarpal and possibly of the pisiform. Boot Liner Maker: PSCB Transcribe Date/Time: Dec 29 2021 12:44A Dictated by : DANA CHEN MD This examination was interpreted and the report reviewed and electronically signed by: DANA CHEN MD on Dec 29 2021 12:48AM EST [id number] Normal [facility] XR WRIST 3V PA/LAT/OBL RTon 12-29-2021 XR [...] the proximal right fifth finger and triquetrum. Boot Liner Maker: [facility] Transcribe Date/Time: Dec 29 2021 2:52A Dictated by : DEBORAH MORIN MD This examination was interpreted and the report reviewed and electronically signed by: DEBORAH MORIN MD on Dec 29 2021 2:59AM EST [id number] Normal [facility] aPTT PPPon 12-29-2021 aPTT Coag (PPP) [Time] 23.8 s Normal 23.0-32.4 [facility] Comment on above: Order Comment: Speci men Type: BLOOD SPECIMEN [facility] Address: [address] [place] [phone] Performed By: #### 1 4979-9, 16133-1 #### [facility] CLIA [id number] 1 [place] [address] [facility] Vital Signs Date Time Vital Sign Value Performing Clinician Facility 04-26-2025 17:25-0400 Body temperature 98.2 [degF] No Primary Care Physician [facility] 04-26-2025 17:25-0400 Diastolic blood pressure 97 mm[Hg] No Primary Care Physician [facility] 04-26-2025 17:25-0400 Heart rate 66 /min No Primary Care Physician [facility] 04-26-2025 17:25-0400 Respiratory rate 17 /min No Primary Care Physician [facility] 04-26-2025 17:25-0400 SaO2% (BldA) [Mass fraction] 98 % No Primary Care Physician [facility] 04-26-2025 17:25-0400 Systolic blood pressure 130 mm[Hg] No Primary Care Physician [facility] 04-26-2025 17:24-0400 Body height 180.34 cm No Primary Care Physician [facility] 04-26-2025 12:02-0400 Body mass index (BMI) [Ratio] 31.4 kg/m2 No Primary Care Physician [facility] 04-26-2025 12:02-0400 Body weight 102.3 kg No Primary Care Physician [facility] 04-26-2025 00:37-0400 Diastolic blood pressure 80 mm[Hg] Kylee Milton DO Work Phone: [facility] 04-26-2025 00:37-0400 Heart rate 80 /min Kyleekhadar Milton DO Work Phone: [facility] [employer] 04-26-2025 00:37-0400 Respiratory rate 16 /min Kyleekhadar Milton DO Work Phone: [facility] 04-26-2025 00:37-0400 SaO2% (BldA) [Mass fraction] 97 % Kylee Milton DO Work Phone: [facility] [employer] 04-26-2025 00:37-0400 Systolic blood pressure 124 mm[Hg] Kylee Andrews-Marely DO Work Phone: [facility] [employer] 04-25-2025 15:53-0400 Body temperature 99.39 [degF] Kylee Andrews-Marely DO Work Phone: [facility] [employer] 04-25-2025 15:53-0400 Body weight 72.58 kg Kylee Milton DO Work Phone: [facility] 01-27-2022 08:26-0400 Body height 182.9 cm [facility] Work Phone: [facility] 01-27-2022 08:26-0400 Body weight 107.05 kg [facility] Work Phone: [facility] 01-27-2022 08:26-0400 Respiratory rate 18 /min [facility] Work Phone: [facility] Encounters Encounter Date Encounter Type Care Provider Facility Start: 04-26-2025 Evaluation and management of inpatient Dr. Olivia Xie MD [facility] Work Phone: Start: 04-26-2025 Non-patient / Non-visit Dr. Olivia blake MD -[facility] Work Phone: Start: 04-25-2025 End: 04-26-2025 Emergency department patient visit Kylee Milton DO Work Phone: [facility] Comment on above: Opioid overdose, acc idental or unintentional, initial encounter (HCC) (Primary Dx) Start: 02-08-2022 Telephone encounter Leonard rosa MD Work Phone: [facility] Comment on above: Wheelchair Follow-up (Certification of Medical Necessity Need) Start: 01-27-2022 End: 01-27-2022 Patient encounter procedure [facility] [facility] Work Phone: [facility] Comment on above: Closed displaced [...] mnt chem analyzers pr date Kylee Tolentino [employer] Work Phone: Start: 04-25-2025 Urnls dip stick/tabl et reagent auto microscopy Kylee [employer] Work Phone: Start: 04-25-2025 Comprehensive metabo lic panel Kylee Tolentino [employer] Work Phone: Start: 04-25-2025 Drug test def 1-7 classes Kylee Tolentino [employer] Work Phone: Start: 04-25-2025 SARS-CoV-2 (COVID-19 ) Ag [Presence] in Respiratory specimen by Rapid immunoassay Kylee Tolentino [employer] Work Phone: Start: 04-25-2025 Ecg routine ecg w/le ast 12 lds trcg only w/o i&r Kylee Tolentino [employer] Work Phone: Start: 12-29-2021 Antibody screen Comment on above: Order Comment: Speci men Type: BLOOD SPECIMENOrdering Facility: [facility] Address: [address] [place] [address] Performed By: #### T SCR ####[facility] BLOOD BANKIA [id number] [place] [id number] [facility] Plan of Treatment Date Care Activity Detail Author Start: 2059 RSV Immunization for Adults (1 - 1-dose 75+ series) RSV Immunization for Adults (1 - 1-dose 75+ series) [employer] Start: 2034 Zoster Vaccines (1 of 2) Zoste r Vaccines (1 of 2) [facility] Start: 12-30-2031 DTaP/Tdap/Td Vaccine s (2 - Td or Tdap) DTaP/Tdap/Td Vaccines (2 - Td or Tdap) [employer] Start: 12-30-2031 Urine microalbumin profile DTAP,TDAP,TD (2 - Td or Tdap) [facility] Start: 07-01-2025 Influenza vaccination Influenz a Vaccine (Season Ended) [facility] Start: 04-26-2025 Following clinical pathway protocol [facility] Start: 04-26-2025 Assessment of risk o f venous thromboembolism [facility] Start: 04-26-2025 Inhalation therapy procedure [facility] Start: 04-26-2025 Provision of activit y privileges [facility] Start: 04-26-2025 [facility] Start: 04-26-2025 Admission procedure [facility] Start: 04-26-2025 Verification routine [facility] Start: 07-01-2024 COVID-19 Vaccine ( season) COVID-19 Vaccine ( season) [facility] Start: 07-01-2022 Influenza vaccination INFLUENZ A (Season Ended) [facility] Start: 07-01-2021 Influenza vaccination INFLUENZA (#1) [facility] Start: 2019 LIPID SCREEN LIPID SCREEN [facility] Start: 2003 Hepatitis B Vaccines (1 of 3 - 19+ 3-dose series) Hepatitis B Vaccines (1 of 3 - 19+ 3-dose series) [facility] Start: 2003 Pneumococcal Vaccine : Pediatrics (0 to 5 Years) and At-Risk Patients (6 to 49 Years) (1 of 2 - PCV) Pneumococcal Vaccine: Pediatrics (0 to 5 Years) and At-Risk Patients (6 to 49 Years) (1 of 2 - PCV) [facility] Start: 2002 HEPATITIS C SCREENING HEPATITIS C [facility] Start: 2002 Hepatitis C screening Hepatitis C [facility] Start: 2002 HIV SCREENING HIV SCREENING [facility] Start: 1997 Varicella vaccination Varicell a Vaccines (1 of 2 - 13+ 2-dose series) [facility] Start: 1996 Adult depression screening assessment DEPRESSION SCREENING [facility] Start: 1989 COVID-19 VACCINE (1) COVID-19 VACCIN E (1) [facility] Start: 1985 MMR Vaccines (1 of 1 - Standard series) MMR Vaccines (1 of 1 - Standard series) [facility] Start: 1984 HIV screening HIV Screening [facility] Start: 1984 Lipid panel Lipid Panel [facility] lower extremity w /o contrast material CT FOOT WO IVCON LT Radiology Routine Closed fracture of left foot, initial encounter Ordered: 01/27/[address] [facility] Work Phone: Comment on above: Ordered: 01/27/2022 End: 02-26-2023 Radiologic examination pelvis 1/2 views XR PELVIS 1V AP Radiology Routine Closed displaced fracture of left acetabulum with routine healing, unspecified portion of acetabulum, subsequent encounter 1 Occurrences starting 01/27/2022 until 02/26/[address] [facility] Work Phone: Comment on above: 1 Occurrences starti ng 01/27/2022 until 02/26/2023 End: 02-26-2023 XR CALCANEUS 2V AXIAL/LAT LEFT XR CALCANEUS 2V AXIAL/LAT LEFT Radiology Routine Closed displaced fracture of left calcaneus with routine healing, unspecified portion of calcaneus, subsequent encounter 1 Occurrences starting 01/27/2022 until 02/26/[address] [facility] Work Phone: Comment on above: 1 Occurrences starti ng 01/27/2022 until 02/26/2023 End: 02-26-2023 XR HAND GENERAL 3V PA/LAT/OBL RIGHT XR HAND GENERAL 3V PA/LAT/OBL RIGHT Radiology Routine Closed displaced fracture of base of first metacarpal bone of right hand with routine healing, unspecified fracture morphology, subsequent encounter 1 Occurrences starting 01/27/2022 until 02/26/[address] [facility] Work Phone: Comment on above: 1 Occurrences starti ng 01/27/2022 until 02/26/2023 End: 02-26-2023 XR WRIST GENERAL 3V PA/LAT/OBL RIGHT XR WRIST GENERAL 3V PA/LAT/OBL RIGHT Radiology Routine Other closed fracture of distal end of right radius with routine healing, subsequent encounter 1 Occurrences starting 01/27/2022 until 02/26/[address] [facility] Work Phone: Comment on above: 1 Occurrences starti ng 01/27/2022 until 02/26/[facility]23 [facility] Immun[facility] Immunization Date Immunization Notes Care Provider Deepika johnson 12-29-2021 tetanus toxoid, redu martha diphtheria toxoid, and acellular pertussis vaccine, adsorbed [facility] Work Phone: [facility] Payers Date Payer Category Payer Medicaid [place] [facility] MEDICAID [id number] 2019-Present [phone] [address] [place] [address] Medicaid [id number] Social History Date Type Detail Facility Start: 06-03-2011 End: 04-26-2025 Tobacco smoking status NHIS Smokes tobacco daily [facility] Start: 06-03-2011 End: 04-25-2025 Cigarettes smoked current (pack per day) - Reported 1 [facility] Start: 06-03-2011 Tobacco use and exposure Smoke less tobacco non-user [facility] Start: 01-27-2022 Alcohol intake Not Asked Taya quintanilla [facility] Start: 1985 Sex Assigned At Not on file C [facility] Start: 01-17-2022 End: 01-27-2022 Exposure to SARS-CoV-2 (event) Not sure [facility] Start: 1985 Sex Assigned At Male C [facility] History of tobacco use Cigarette Smoker S [facility] Start: 04-25-2025 Alcoholic beverage intake Ex-drinker (finding) [facility] Start: 04-25-2025 Alcohol Use Disorder Identification Test - Consumption [AUDIT-C] [facility] How often to you hav e a drink containing alcohol? Never [facility] How many standard dr inks containing alcohol do you have on a typical day? Patient does not drink [facility] Start: 05-31-2022 Sex Male (finding) [facility] alth Medical Equipment Procedure Code Equipment Code Equipment Original Text Equipment Identifier Dates 3.5mm Spring Plt 2 Hole-Stl [id number] Start: 01-01-2022 Plate Stainless Steel 78x10.2x2.7mm Bone 6 Hole Low Profile Reconstruction - [id number] Start: 01-01-2022 Screw Lcp Dcp 2. 7mm Stainless Steel 40mm Bone Self Tapping Mini Fragment - [id number] Start: 01-01-2022 Screw Lcp 3.5mm Stainless Steel 18mm Bone Self Tapping Nonsterile Cortical - [id number] Start: 01-01-2022 Screw Lc-Dcp Dcp 3.5mm 6mm Full Thread Stainless Steel 34mm Bone Self - [id number] Start: 01-01-2022 Screw Dcp Lc-Dcp 3.5mm 6mm Full Thread Hexagon Stainless Steel 46mm Bone - [id number] Start: 01-01-2022 Screw Dcp Lc-Dcp 3.5mm Stainless Steel 38mm Bone Self Tapping Hexagonal - [id number] Start: 01-01-2022 Screw Lc-Dcp Dcp 3.5mm 6mm Full Thread Stainless Steel 36mm Bone Self - [id number] Start: 01-01-2022 Functional Status Date Assessment Result Facility 04-26-2025 Functional status Activity Ability Indepe ndent [facility] Work Phone: [facility] Mental Status Date Assessment Result Facility 04-26-2025 Cognitive function Voice/Name [facility] Work Phone: Clinical Notes 12-29-2021 to 04-26-2025 Note Date & Type Note Facility 04-26-2025 Discharge summary Note Date/Time April 26, 2025 3:56pm [facility] Medical Records Department [address] [place] [address] Emergency Department Summary 04/26/25 MR#: [id number] Acct: [id number] Name: SILVIO BRIZUELA Rep #:[id number] : 1985 39 From: Juana VILLANUEVA PCP: Care Physician,No Primary Status :ADM [place] [facility] [id number] HPI <KAY Davidson - Last Filed: 04/26/25 [...] medical conditions that he is aware of. [facility] <KAY Davidson - Last Filed: 04/26/25 14:41> [facility] Medical History Substance abuse Smoker Migraines [...] % (Auto) 54.8 Lymph % (Auto) 35.8 Gillespie % (Auto) 6.3 Eos % (Auto) 1.9 [...] Campos MD - Last Filed: 04/26/25 14:04> [facility] Lab Data Attestation: I reviewed the patient's lab results. Labs: Laboratory Results - last 24 hr 04/26/25 04/26/25 12:54 13:50 WBC 8.3 RBC 4.82 Hgb 14.1 Hct 41.6 MCV 86.3 MCH 29.3 MCHC 33.9 RDW Std Deviation 40.2 RDW Coeff of Grace 12.7 Plt Count 235 MPV 10.7 Immature Gran % (Auto) 0.400 Neut % (Auto) 54.8 Lymph % (Auto) 35.8 Gillespie % (Auto) 6.3 Eos % (Auto) 1.9 [...] for detoxification Disposition Disposition: Acute Care Hospital [facility] What to do if you have Problems For any increased pain, shortness of breath, bleeding, nausea or vomiting, chest pain, or any unexpected problems, contact your Primary Care Provider. Call [facility] ([phone]) or report to the closest Emergency Room. Call 911 if necessary. 04/26/25 1441 <Electronically signed by Juana VILLANUEVA> Cosigner Signature (if applicable): 04/26/25 1556 <Electronically signed by Clay Campos MD> CC: No Primary Care Physician ~ Signed [facility] Work Phone: 1(248) 593-692706-27-2025 History and physical note Author Olivia Xie [facility] Note Date/Time April 26, 2025 2:26 pm [facility] Medical Records Department [address] [place] [address] H&P Exam - Hospitalist 04/26/25 1422 MR#: [id number] Acct: [id number] Name: SILVIO BRIZUELA Rep #:[id number] : 1985 39 From: Olivia Xie MD PCP: Care Physician,No Primary Status :REG ER Location: ED HPI - General General Date of Admission: 04/26/25 Date of Service: 04/26/25 Chief Complaint: Opioid detox HPI Narrative SILVIO BRIZUELA, is a 38-year-old male history of opioid use disorder, tobacco use presented to [facility] ED 04/26/2025 for detox from opioids. He [...] % (Auto) 54.8, Lymph % (Auto) 35.8, Gillespie % (Auto) 6.3, Eos % (Auto) 1.9, [...] Xie MD Charges/Coding Visit Charges Inpatient E&M: 91928 Init Hosp L1 04/26/25 1426 <Electronically signed by Olivia Xie MD> Cosigner Signature (if applicable): CC: Dr. Olivia Xie MD; No Primary Care Physician~ Signed [facility] Work Phone: 1(928) 298-898906-27-2025 Evaluation note* Diagnosis Onset Date Resolution Status Admit Date Opioid dependence acute April 262024 2:23pm [facility] Work Phone: 1(186) 439-522206-27-2025 Discharge summary [facility] Medical Records Department [address] [place], [place] [address] [address] Emergency Department Summary 04/26/25 MR#: [id number] Acct: [id number] Name: SILVIO BRIZUELA Rep #:[id number] : 1985 39 From: Juana VILLANUEVA PCP: Care Physician,No Primary Status :ADM IN Location: MS3 [id number] HPI History of Present Illness Chief Complaint: [...] medical conditions that he is aware of. [facility] Medical History Substance abuse Smoker Migraines Jaw [...] % (Auto) 54.8 Lymph % (Auto) 35.8 Gillespie % (Auto) 6.3 Eos % (Auto) 1.9 [...] % (Auto) 54.8 Lymph % (Auto) 35.8 Gillespie % (Auto) 6.3 Eos % (Auto) 1.9 [...] for detoxification Disposition Disposition: Acute Care Hospital [facility] What to do if you have Problems For any increased pain, shortness of breath, bleeding, nausea or vomiting, chest pain, or any unexpected problems, contact your Primary Care Provider. Call [facility] ([phone]) or report to the closest Emergency Room. Call 911 if necessary. 04/26/25 1441 Cosigner Signature (if applicable): 04/26/25 1556 CC: No Primary Care Physician ~ Signed [facility]2025 History and physical note [facility] Medical Records Department [address] [place] [address] H&P Exam - Hospitalist 04/26/25 1422 MR#: [id number] Acct: [id number] Name: SILVIO BRIZUELA Rep #:[id number] : 1985 39 From: Olivia Xie MD PCP: Care Physician,No Primary Status :REG ER Location: ED HPI - General General Date of Admission: 04/26/25 Date of Service: 04/26/25 Chief Complaint: Opioid detox HPI Narrative SILVIO BRIZUELA, is a 38-year-old male history of opioid use disorder, tobacco use presented to [facility] ED 04/26/2025 for detox from opioids. He [...] before. Does smoke cigarettes with 1 pack/day. [facility] Medical History Substance abuse Smoker Migraines [...] % (Auto) 54.8, Lymph % (Auto) 35.8, Gillespie % (Auto) 6.3, Eos % (Auto) 1.9, [...] Xie MD Charges/Coding Visit Charges Inpatient E&M: 76572 Init Hosp L1 04/26/25 1426 Cosigner Signature (if applicable): CC: Dr. Olivia Xie MD; No Primary Care Physician~ Signed [facility]2025 Hospital Discharge instructions* Discharge Instructions* Beto Gauthier MD - 04/26/2025 1:29 AM EDT Please utilize the resources provided to you today. If your symptoms worsen please come back to theER for repeat evaluation. * Attachments The following attachments cannot be sent through Care Everywhere. * How to Give Naloxone (Wallisian) * Opioid Overdose (Wallisian) * Drug Abuse and Drug Addiction Discharge Instructions (Wallisian) documented in this [facility]06-26-2025 Emergency department Note* Tanisha Montoya RN - 04/25/2025 10:38 PM EDT Pt arouses to name. Again asked pt to provide urine specimen and given urinal. Pt falls back to sleep. 3rd L NS hung as ordered [id number] department Note* Tanisha Montoya RN - [...] sleeping. Arouses to tactile stimuli. 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 NOTE: This [...] Course as of 04/26/25 012 [facility] Apr 25, 20252005 Patient resting comfortably [...] Opioid overdose, accidental or unintentional, initial encounter ([facility]) Medications potassium chloride CR (Klor-Con M10) ER [...] Opioid overdose, accidental or unintentional, initial encounter ([facility]) DISPOSITION Admit 04/25/2025 04:22:07 PM PATIENT REFERRED [...] Emergency Medicine Provider Kylee Milton DO 04/25/25 0361 [1] No past medical history on file. [2] No past surgical history on file. [3] No family history on file. [4] Social History Socioeconomic History Marital status: Single Tobacco Use Smoking status: Every Day Types: Cigarettes Substance and Sexual Activity Alcohol use: Not Currently * Tanisha Montoya RN - 04/25/2025 3:51 PM EDT Pt to ER by [facility] with complaint of drug overdose. Pt found unresponsive. Given Narcan by EMS, now awake and alert. Denies ETOH use. States his drug of choice is opioids. Call light in reach. Side rails up x 2 for safety documented in this [facility]06-26-2025 Emergency department Note* Tanisha Montoya RN - 04/25/2025 9:59 PM EDT Pt arouses to name. Given urinal and asked to provide a urine specimen. Pt states I will eventually [id number] Emergency department Note* Tanisha Montoya RN - 04/25/2025 8:36 PM EDT Arouses to loud verbal and tactile stimuli. Given a sip of water. Father @ bedside [address]Ajwcso21-07-7318 Emergency department Note* Tanisha Montoya RN - 04/25/2025 6:34 PM EDT Pt resting with eyes closed. Respirations even and unlabored. Visitor at bedside [address]Rufkxy87-02-0805 Emergency department Note* Tanisha Montoya RN - 04/25/2025 5:45 PM EDT Pt very restless in bed after receiving narcan as ordered. Visitor @ bedside. Side rails remain up x 2 for safety. [address]Ifpxkt04-95-7180 Emergency department Note* Tanisha Montoya RN - 04/25/2025 5:[address] Milton to bedside. Pt rouses to sternal rub. [address]Ovqbfs64-70-2517 Emergency department Note* Tanisha Montoya RN - 04/25/2025 5:15 PM EDT Pt sleeping. Arouses to tactile stimuli. Visitors @ [id number] Emergency department Triage note* Tanisha Montoya RN - 04/25/2025 3:51 PM EDT Pt to ER by [facility] with complaint of drug overdose. Pt found unresponsive. Given Narcan by EMS, now awake and alert. Denies ETOH use. States his drug of choice is opioids. Call light in reach. 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 NOTE: This [...] Course as of 04/26/25 012 [facility] Apr 25, 20252005 Patient resting comfortably [...] Opioid overdose, accidental or unintentional, initial encounter ([facility]) DISPOSITION Admit 04/25/2025 04:22:07 PM PATIENT REFERRED [...] Emergency Medicine Provider Kylee Milton DO 04/25/25 0315 [1] No past medical history on file. [2] No past surgical history on file. [3] No family history on file. [4] Social History Socioeconomic History Marital status: Single Tobacco Use Smoking status: Every Day Types: Cigarettes Substance and Sexual Activity Alcohol use: Not Currently [facility] [id number] Miscellaneous Notes* Telephone Encounter - Sheryl Durham - 02/09/2022 8:20 AM EDTSummary: Wheelchair documentation Documentation located in mailbox of [facility]. Handed it to Yaya who said she will process it. Sheryl Durham February 09, 2022 8:21 AM * Telephone Encounter - Sheryl Durham - 02/08/2022 3:27 PM EDTSummary: Wheelchair documentation Destiny chapman [facility], [phone], asked for the status of the medical necessity documentation needing 's signature, for a wheelchair for the patient. She stated it was faxed on 3/30 and 02/03. Tommie Ojeda was the ordering user, and Dr. Nagel was theauthorized provider. does not have the document for signature. Yaya in the ortho clinic does not have the document. Did not locate document in the shared fax folder. Asked Destiny to refax the form to 's attention and note that it is the third attempt. Sheryl Durham February 08, 2022 3:30 PM [facility] NoteHNO ID: [id number] Author: Pedro Damon MD Service: ? Author [...] and hand and l (more content not included)...[facility]03-30-2022 History of Present illness Narrative* Pedro Damon [...] scan Pedro Damon MD documented in this [facility]-2022 NoteHNO ID: [id number] Author: Leonard Nagel MD Service: ? Author [...] hip is approximated without evidence of erythema/drainage [place] intact. Pin site wounds over left leg [...] S52.591D Functional Plan: NWB RUE, NWB LLE Theatrical Scenic Designer Devices: Wheelchair ordered. Use prn Physical/Occupational Therapy: [...] Leonard Nagel MD Date: 01/19/2022. Time: 12:58 [facility]03-10-2022 [facility] Medical Records Department [address] [place] [address] Discharge Summary 01/07/22 1318 MR#: [id number] Acct: [id number] Name: SLIVIO BRIZUELA Rep #: [id number] : 1985 36 From: Jesenia Constantino MD PCP: Care Physician,No Primary Status:DIS CLAUDY Location: PR3 [id number] Providers Date of Admission: 01/05/22 Primary Care Physician: Yenifer Primary Care Phys Consultations 01/05/22 17:11 Consult: Onc/Wound/drink mixer Routine Comment: Reason for Consult:: wound top [...] December 28. He was subsequently sent to [facility] where he ws found to have multiple [...] Advice Charges/Coding Visit Charges Inpatient E M: 60866 Disch Hosp 01/07/22 1321 Cosigner Signature (if applicable): CC: Dr. Jesenia Burch (more content not included)...[facility] 01-04-2022 NoteHNO ID: [id number] Author: Suzanna Calle MD Service: Radiation Oncology [...] returned to his medical floor. Suzanna Calle, [facility]03-07-2022 NoteHNO ID: [id number] Author: Donato Patiño DO Service: General Surgery [...] Patiño DO PGY-4 General Surgery 01/04/2022 5:35 [facility]03-07-2022 NoteHNO ID: [id number] Author: Estrella Ferrari RN Service: Nursing Author Type: Registered Nurse Type: Nursing Progress Note Filed: 01/04/2022 4:06 PM Note Text: [facility]100[facility] Note HNO ID: [id number] Author: Ccf Provider Service: ? Author Type: Physician Type: Progress Notes Filed: 01/05/2022 12:35 AM Note Text: [facility] Department of Radiation Oncology Silvio Brizuela [id number] 01/04/2022 Radiation Oncology - Simulation Note Diagnosis: [...] by the therapist. Patient simulated on the [employer] CT simulator for external beam radiation therapy Patient marked. Planning: tbd. Assessment/Plan: Patient tolerated simulation procedure well. Treatments will be initiated after treatment planning. The patient is scheduled for a verification simulation on the treatment machine to ensure proper set-up and field arrangement is correct prior to the first treatment mclaughlin. Electronically Signed: Suzanna Calle M.D. :07 [facility]03-07-2022 NoteHNO ID: [id number] Author: Eran Wilkinson MD Service: Plastic Surgery [...] Plastic surgery to sign-off Please call with questionsSt. [facility]03-07-2022 NoteHNO ID: [id number] Author: Alecia Michelle MD Service: Pain Management [...] BID Beto Platt MD (more content not included)...[facility] 01-04-2022 NoteHNO ID: [id number] Author: Mandeep Wray DO Service: General Surgery [...] questions or concerns Mon-Fri 6a-5p please page [phone]. After 5pm and on Weekends and Holidays, please page [phone] if in ICU or [phone] if on RNF. SUBJECTIVE: NAEO. On ketamine [...] Date 01/03/22699 - 01/04/2265801/04/22699 - 01/05/22658 Shift 4885-1871 0720-6307 5196-5061 24 Hour Total 2831-8526 3971-5793 9027-5794 24 Hour Total INTAKE IV 934.9 278 [...] 150 90 60 300 Gastric Tube 217 437 276 2400 Supplements/Additives (mL) (GI Feed Assessment Naris) 270 270 Tube Feed Intake (I/O) (GI Feed Assessment Naris) 217 473 099 9092 Shift Total 1301.9 1201 531.4 3034.3 OUTPUT Urine 2600 990 166 3975 Output ([REMOVED] Indwelling Urinary Catheter 12/31/21 0200 [place] 01/03/22 1645) 2600 400 3000 Output ( External Collection Device 01/03/22 1700) 300 550 850 # of BMs Stool Incontinence 1 x 1 x Number of BMs 1 x 1 x Shift Total 2600 251 228 6706 Weight (kg) 109.7 109.7 107.5 107.5 107.5 [...] NaCl 0.9% 100 mL (KETALAR) 0.3-0.8 mg/kg/hr ([place]) INTRAVENOUS CONTINUOUS - mupirocin 2 % 0.5 [...] suspicious rashes or lesions (more content not included)...[facility]03-07-2022 NoteHNO ID: [id number] Author: Donato Ordaz MD Service: Orthopaedic Surgery [...] 2022 6:02 [facility]03-06-2022 NoteHNO ID: [id number] Author: Mandeep Wray DO Service: General Surgery [...] questions or concerns Mon-Fri 6a-5p please page [phone]. After 5pm and on Weekends and Holidays, please page [phone] if in ICU or [phone] if on RNF. SUBJECTIVE: NAEO. On ketamine [...] Date 01/02/22699 - 01/03/2265801/03/22699 - 01/04/22658 Shift 5541-8825 1569-5689 7362-3125 24 Hour Total 7880-1121 1624-1591 6421-7793 24 Hour Total INTAKE IV 1074.2 1509.7 109.7 2693.6 Volume (mL) 334.6 160.5 19.7 514.8 Volume (mL) 34.6 51.2 90 175.8 Volume (mL) (potassium phosphate 45 mmol in NaCl 0.9% 500 mL) 500 500 Volume (mL) (ceFAZolin iv piggyback 2 g in D5W (iso-osmotic) 100 mL (ANCEF)) 100 100 200 Volume (mL) (dextrose 5% in NaCl 0.9% iv infusion) 434 684 6352 Irrigants 90 90 180 Irrigant/Flush Amount In (GI Feed Assessment Naris) 90 90 180 Gastric Tube 253 340 361 954 Supplements/Additives (mL) (GI Feed Assessment Naris) 230 60 290 Tube Feed Intake (I/O) (GI Feed Assessment Naris) 253 110 301 664 Shift Total 1327.2 1939.7 560.7 3827.6 OUTPUT Urine 1050 746 720 6123 Output ( Indwelling Urinary Catheter 12/31/21 0200 Coude) 1050 671 697 5637 # of BMs Number of BMs 0 x 0 x Shift Total 1050 427 155 8863 Weight (kg) 101.2 101.2 109.7 109.7 109.7 [...] NaCl 0.9% 100 mL (KETALAR) 0.3-0.8 mg/kg/hr ([place]) INTRAVENOUS CONTINUOUS - mupirocin 2 % 0.5 [...] - Symptom of dr (more content not included)...[facility] 01-03-2022 NoteHNO ID: [id number] Author: Aidee Sargent MD Service: Orthopaedic Surgery [...] 01/03/2022 6:17 [facility]03-05-2022 NoteHNO ID: [id number] Author: Ml Mitchell MD Service: General Surgery [...] questions or concerns Mon-Fri 6a-5p please page [phone]. After 5pm and on Weekends and Holidays, please page [phone] if in ICU or [phone] if on RNF. SUBJECTIVE: Patient does follow [...] - 01/02/22 0601/02/22699 - 01/03/22 0659 Shift 5238-2761 7735-3956 7628-8106 24 Hour Total 7246-8525 1800-5616 7291-5729 24 Hour Total INTAKE IV 281.3 1294.1 [...] 281.3 1299.1 583 2163.4 OUTPUT Urine 800 5081 376 8665 OR Urine Output 400 400 Output ( Indwelling Urinary Catheter 12/31/21 0200 Coude) 800 1608 303 4263 # of BMs Number of BMs 0 x 0 x 0 x Blood 150 150 Estimated Blood loss 150 150 Shift Total 800 2984 690 6425 Weight (kg) 101.2 101.2 101.2 101.2 101.2 [...] NaCl 0.9% 100 mL (KETALAR) 0.3-0.8 mg/kg/hr ([place]) INTRAVENOUS CONTINUOUS - mupirocin 2 % 0.5 [...] side of mandible (HCC) (more content not included)...[facility]03-05-2022 NoteHNO ID: [id number] Author: Donato Ordaz MD Service: Orthopaedic Surgery [...] 2022 6:44 [facility]03-05-2022 NoteHNO ID: [id number] Author: Ml Mitchell MD Service: General Surgery [...] 2022 3:24 [facility]03-04-2022 NoteHNO ID: [id number] Author: Tanesha Enciso MD Service: Anesthesiology Author [...] January 01, 2022 TIME: 6:19 PM CSN: [id number]. [facility]03-04-2022 NoteHNO ID: [id number] Author: Alecia Michelle MD Service: Palliative Care [...] weight loss, fatigue, genera (more content not included)...[facility]03-04-2022 NoteHNO ID: [id number] Author: Sylvie Motta RN Service: Care Management [...] base fracture. Possible acute rehab needs at [place]. SIGNATURE: Sylvie Motta RN PATIENT NAME: Silvio Brizuela DATE: January 01, 2022 TIME: 10:00 AM PAGER/CONTACT #[phone] NoteHNO ID: [id number] Author: Shauna Barragan APRN.[employer]ESSION[employer] Service: Plastic Surgery Author Type: Nurse Practitioner [...] consent obtained by father (Tony Brizuela - [phone]) with Dr. Wilkinson - NPO at midnight - Will continue to follow SIGNATURE: Shauna Barragan APRN.[facility] Date of Service: January [address] [place], [place] 3265303-04-2022 NoteHNO ID: [id number] Author: Jaycob Rapp MD Service: General Surgery [...] questions or concerns Mon-Fri 6a-5p please page [phone]. After 5pm and on Weekends and Holidays, please page [phone] if in ICU or [phone] if on RNF. SUBJECTIVE: Patient does follow [...] - 01/01/2259 01/01/22699 - 01/02/22 0659 Shift 2915-3163 9324-7813 9826-3512 24 Hour Total 4890-9265 0519-5606 1594-5026 24 Hour Total INTAKE IV 1317.8 619.3 [...] 1575.8 716.3 868.3 3160.4 OUTPUT Urine 475 946 226 9619 Output ( Indwelling Urinary Catheter 12/31/21 0200 Coude) 475 144 805 9879 # of BMs Number of BMs 0 x 0 x Shift Total 475 469 692 0081 Weight (kg) 90.9 90.9 101.2 101.2 101.2 [...] Likely OR next week, (more content not included)...[facility]03-04-2022 NoteHNO ID: [id number] Author: Aidee Sargent MD Service: Orthopaedic Surgery [...] 01/01/2022 6:18 [facility]03-04-2022 NoteHNO ID: [id number] Author: Aurora Garner MD Service: General Surgery [...] 0659 01/01/22 07 - 01/02/22 0659 Shift 8716-7601 3491-5898 1543-2826 24 Hour Total 9366-5376 4135-9524 4833-0243 24 Hour Total INTAKE IV 1317.8 619.3 [...] 1575.8 716.3 674.2 2966.3 OUTPUT Urine 475 729 992 3249 Output ( Indwelling Urinary Catheter 12/31/21 0200 Coude) 475 091 760 6106 # of BMs Number of BMs 0 x 0 x Shift Total 475 709 561 4768 Weight (kg) 90.9 90.9 101.2 101.2 101.2 [...] flush 30mlq6 ? Maritza (more content not included)...[facility]03-03-2022 Note COVID 19 RESULT: SARS-CoV-2 (Agent of COVID-19) Detected by RT-PCR or equivalent method. This test has been authorized by FDA under an Emergency Use Authorization (EUA). INFLUENZA A PCR: Negative for Influenza A by RT-PCR INFLUENZA B PCR: Negative for Influenza B by RT-PCR RSV PCR: Negative for Respiratory Syncytial Virus (RSV) by PCRSt. Mary'S Regional Medical CenterComment on above:Performed By: #### [id number] ####[facility]ORATORYCLIA [id number] [address]03-03-2022 NoteHNO ID: [id number] Author: Alecia Michelle MD Service: Pain Management [...] hearing change, ear discom (more content not included)...[facility]03-03-2022 Note HNO ID: [id number] Author: Eran Wilkinson MD Service: Plastic Surgery [...] that surgery next week. Will continue to follow.[facility]03-03-2022 NoteHNO ID: [id number] Author: Jaycob Rapp MD Service: General Surgery [...] December 31, 2021 TIME: 4:31 PM Pager: [phone] Trauma Surgery Progress Note SERVICE DATE: 12/31/2021 Trauma Service Pager: For questions or concerns Mon-Fri 6a-5p please page [phone]. After 5pm and on Weekends and Holidays, please page [phone] if in ICU or [phone] if on RNF. SUBJECTIVE: Patient was agitated [...] - 12/31/21 0612/31/21699 - 01/01/22 0659 Shift 4891-6195 1647-5378 6435-7848 24 Hour Total 3361-0633 1321-0260 1197-9143 24 Hour Total INTAKE IV 925.7 92.3 [...] CARDIAC: Regular rate and (more content not included)...[facility]03-03-2022 NoteHNO ID: [id number] Author: Aidee Sargent MD Service: Orthopaedic Surgery [...] 12/31/2021 6:24 [facility]03-03-2022 NoteHNO ID: [id number] Author: Duane Carranza MD Service: General Surgery [...] 0659 12/31/21 07 - 01/01/22 0659 Shift 8059-7606 7912-7830 1079-6776 24 Hour Total 2485-8135 1500-2 (more content not included)...[facility]03-02-2022 NoteHNO ID: [id number] Author: Alecia Michelle MD Service: Pain Management [...] 4 mg INTRAVENOUS q 6 H PRN [facility], DO - acetaminophen 975 mg tab(s) (TYLENOL) 975 mg ORAL q 6 H [facility], DO 975 mg at 12/29/21 0526 - sodium chloride 0.9 % (flush) 3-5 mL (BD POSIFLUSH) 3-5 mL INTRAVENOUS q 12 H [facility] DO 5 mL at 12/30/21 0822 - [...] - VERIFY PATCH OTHER q 8 H [facility] DO - dexAMETHasone 0.1 % 4 Drop (DEXASOL) 4 Drop RIGHT EAR BID [facility], DO 4 Drop at 12/30/21 0822 And - ciprofloxacin 0.3 % 4 Drop (CILOXAN) 4 Drop RIGHT EAR BID [facility], DO 4 Drop at 12/30/21 0822 - NaCl 0.9% iv flush bag 20 mL INTRAVENOUS PRN Cedrick Mcmahan DO - PHENobarbital 100 mg injection 100 mg INTRAVENOUS q 8 H [facility], DO 100 mg at 12/30/21 0518 - HYDROmorphone 1-1.5 mg injection (DILAUDID) 1-1.5 mg INTRAVENOUS q 2 H PRN [facility] DO 1 mg at 12/30/21 1059 - [...] fever, chills, sweats, weig (more content not included)...[facility]03-02-2022 NoteHNO ID: [id number] Author: Jaycob Rapp MD Service: General Surgery [...] December 30, 2021 TIME: 5:45 PM Pager: [phone] Trauma Surgery Progress Note SERVICE DATE: 12/30/2021 Trauma Service Pager: For questions or concerns Mon-Fri 6a-5p please page [phone]. After 5pm and on Weekends and Holidays, please page [phone] if in ICU or [phone] if on RNF. SUBJECTIVE: NAEO. Patient only [...] Date 12/29/21699 - 12/30/2165812/30/21699 - 12/31/2159 Shift 2965-1978 6814-1779 3884-3716 24 Hour Total 3975-8768 8817-7081 4594-7060 24 Hour Total INTAKE IV 1092.2 979.7 2071.9 Volume (mL) 157.2 129.7 286.9 Volume (mL)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
[2025-04-26 20:00] VITALS: BP 125/85; PULSE 77; RESP 17; TEMP 36.6; O2SAT 100
[2025-04-26] MEDS: hydrOXYzine PAM 25 MG Capsule 50 MG PO (20:02)
[2025-04-26] MEDS: traZODone 100 MG Tablet PO (20:02)
[2025-04-26] MEDS: Ondansetron 8 MG Tablet PO (20:02)
[2025-04-27 02:32] VITALS: BP 100/55; PULSE 85; RESP 16; TEMP 36.8; O2SAT 93
--- NOTE | 2025-04-27 07:46 | PCM.PN.HOSP ---
Reason for Visit Reason for Visit: Opiate detox Subjective Subjective Patient states he is feeling a little bit better with the as needed medications. He has not yet required buprenorphine dosing. States he is unclear at this time if he would like to proceed with outpatient or inpatient treatment. I did discuss with him that 180 would be by to discuss that further with him prior to discharge. Objective Data Objective Data Vital Signs: Vital Signs Temp Pulse Resp BP Pulse Ox O2 Del Method 98.3 F 85 16 100/55 L 93 Room Air 04/27/25 02:32 04/27/25 02:32 04/27/25 02:32 04/27/25 02:32 04/27/25 02:32 04/27/25 02:32 Oxygen Delivery Method Room Air Weight: 102.3 kg Body Mass Index (BMI) 31.4 Intake & Output: Intake and Output for Last 24 Hours 04/25/25 04/26/25 04/27/25 23:59 23:59 23:59 Intake Total 560 / 560 Balance 560 / 560 Lab / Micro Data 04/26/25 12:54 04/26/25 12:54 Labs: Laboratory Results - last 24 hr 04/26/25 12:54: WBC 8.3, RBC 4.82, Hgb 14.1, Hct 41.6, MCV 86.3, MCH 29.3, MCHC 33.9, RDW Std Deviation 40.2, RDW Coeff of Grace 12.7, Plt Count 235, MPV 10.7, Immature Gran % (Auto) 0.400, Neut % (Auto) 54.8, Lymph % (Auto) 35.8, [place] % (Auto) 6.3, Eos % (Auto) 1.9, Baso % (Auto) 0.8, Absolute Neuts (auto) 4.5, Absolute Lymphs (auto) 2.95, Nucleated RBC % 0, Sodium 145, Potassium 3.7, Chloride 108, Carbon Dioxide 26.1, Anion Gap 10, BUN 9, Creatinine 0.99, Estim Creat Clear Calc 120.79, Est GFR (MDRD) Non-Af 99, BUN/Creatinine Ratio 8.6 L, Glucose 83, Calcium 9.1, Ethyl Alcohol < 10.1 04/26/25 13:50: Urine Opiates Screen NEGATIVE, U Buprenorphine Qual NEGATIVE, Ur Oxycodone Screen NEGATIVE, Urine Methadone Screen NEGATIVE, Urine Fentanyl Screen PRESUMPTIVE POSITIVE, Ur Barbiturates Screen NEGATIVE, Ur Phencyclidine Scrn NEGATIVE, Ur Amphetamines Screen PRESUMPTIVE POSITIVE, U Benzodiazepines Scrn PRESUMPTIVE POSITIVE, Urine Cocaine Screen NEGATIVE, U Cannabinoids Screen NEGATIVE Physical Exam Const alert, oriented x3, no apparent distress and well nourished Constitutional Narrative: Obese, middle-aged, white male, lying in bed, appears comfortable, nontoxic HEENT head/scalp atraumatic Head and Scalp: normocephalic Psych affect normal Psych Narrative: Eye contact is good and patient interacts appropriately Assessment & Plan Assessment/Plan (1) Opioid dependence: (2) Opiate withdrawal: (3) Desire for detoxification: PLAN: Plan Acute opiate withdrawal - Subutex taper per COWS protocol - continue supportive medication for symptom management as needed - 180 consultation for assistance with discharge planning - Patient has not yet decided whether he wants to do inpatient versus outpatient after discharge Methamphetamine use disorder - Uses about 3 times weekly with last dose about 1 to 2 days prior to presentation - Advised cessation Tobacco abuse - Recommend cessation - Nicotine replacement therapy available DVT prophylaxis - Low risk - Recommend early and frequent ambulation CODE STATUS - Full code Charges/Coding Visit Charges Inpatient E&M: 28104 Subs Hosp L1
[2025-04-27 08:00] VITALS: BP 123/84; PULSE 73; RESP 18; TEMP 36.7; O2SAT 98
[2025-04-27 14:00] VITALS: BP 112/68; PULSE 90; RESP 18; TEMP 36.7; O2SAT 100
[2025-04-27] MEDS: cloNIDine HCl 0.1 MG Tablet PO (14:07)
[2025-04-27] MEDS: hydrOXYzine PAM 25 MG Capsule 50 MG PO (14:07)
[2025-04-27] MEDS: Gabapentin 300 MG Capsule PO (14:07)
[2025-04-27] MEDS: Methocarbamol 750 MG Tablet PO (14:07)
--- NOTE | 2025-04-27 15:48 | CASEMGMT ---
Social Work SW attempted to see pt, he is sleeping soundly. SW to follow up on Tuesday as time allows for resources as pt is listed as self pay. VENUS Martino
[2025-04-27 20:00] VITALS: BP 117/70; PULSE 65; RESP 16; TEMP 36.9; O2SAT 100
[2025-04-28 03:00] VITALS: BP 112/74; PULSE 76; RESP 18; TEMP 36.8; O2SAT 96
--- NOTE | 2025-04-28 07:23 | PCM.PN.HOSP ---
Reason for Visit Reason for Visit: Opiate detox Subjective Subjective Patient states he started having more intense withdrawal symptoms including nausea, myalgias, and restlessness with anxiety. Buprenorphine started and symptoms seem to be abating some. Objective Data Objective Data Vital Signs: Vital Signs Temp Pulse Resp BP Pulse Ox O2 Del Method 98.3 F 76 18 112/74 96 Room Air 04/28/25 03:00 04/28/25 03:00 04/28/25 03:00 04/28/25 03:00 04/28/25 03:00 04/28/25 03:00 Oxygen Delivery Method Room Air Weight: 102.3 kg Body Mass Index (BMI) 31.4 Intake & Output: Intake and Output for Last 24 Hours 04/26/25 04/27/25 04/28/25 23:59 23:59 23:59 Intake Total 1310 / 1310 Balance 1310 / 1310 Lab / Micro Data 04/26/25 12:54 04/26/25 12:54 Physical Exam Const alert, oriented x3, no apparent distress and well nourished; Negative for average body habitus or healthy appearing Constitutional Narrative: Obese, middle-aged, white male, lying in bed, appears uncomfortable but nontoxic HEENT head/scalp atraumatic Head and Scalp: normocephalic Cardio regular rate, regular rhythm, S1 normal heart sound, S2 normal heart sound, no murmurs, no rub, no gallops and no clicks Neuro oriented x3, moves all extremities and no focal motor deficits Psych Psych Narrative: Affect is flat Assessment & Plan Assessment/Plan (1) Opioid dependence: (2) Desire for detoxification: (3) Opiate withdrawal: PLAN: Plan Acute opiate withdrawal - Subutex taper per COWS protocol --> buprenorphine started today - continue supportive medication for symptom management as needed - 180 consultation for assistance with discharge planning--> awaiting input - Patient has not yet decided whether he wants to do inpatient versus outpatient after discharge Methamphetamine use disorder - Uses about 3 times weekly with last dose about 1 to 2 days prior to presentation - Advised cessation Tobacco abuse - Recommend cessation - Nicotine replacement therapy available DVT prophylaxis - Low risk - Recommend early and frequent ambulation CODE STATUS - Full code Charges/Coding Visit Charges Inpatient E&M: 25964 Subs Hosp L1
[2025-04-28 08:00] VITALS: BP 121/85; PULSE 76; RESP 14; TEMP 36.7; O2SAT 100
[2025-04-28] MEDS: Buprenorphine HCl 2 MG TAB.SUBL SL ×2 (08:11→16:12)
[2025-04-28] MEDS: Methocarbamol 750 MG Tablet PO (08:11)
[2025-04-28] MEDS: Ibuprofen 600 MG Tablet PO (08:11)
[2025-04-28] MEDS: Ondansetron 8 MG Tablet PO ×2 (08:12→21:40)
--- NOTE | 2025-04-28 13:30 | ADDICTION ---
Met with cl to discuss RAMP program and explore cl reported needs. Discussed Tx options w/ cl. Cl reports he is uncertain about Tx recommendations I don't know I think I might try IOP. Clinician provided unconditional positive regard and provided resources.
[2025-04-28 16:00] VITALS: BP 137/91; PULSE 65; RESP 14; TEMP 36.3; O2SAT 100
[2025-04-28 21:00] VITALS: BP 116/78; PULSE 67; RESP 16; TEMP 36.6; O2SAT 100
[2025-04-28] MEDS: traZODone 100 MG Tablet PO (21:40)
[2025-04-29] MEDS: Buprenorphine HCl 2 MG TAB.SUBL SL ×2 (02:09→08:32)
[2025-04-29] MEDS: hydrOXYzine PAM 25 MG Capsule 50 MG PO (02:09)
[2025-04-29 04:00] VITALS: BP 128/76; PULSE 72; RESP 16; TEMP 36.4; O2SAT 98
[2025-04-29 08:27] VITALS: BP 126/81; PULSE 79; RESP 16; TEMP 36.9; O2SAT 98
--- NOTE | 2025-04-29 10:46 | DS.PCM_ITS ---
Providers Date of Admission: 04/26/25 Date of Discharge: 04/29/25 Primary Care Physician: Yenifer Primary Care Phys Reason For Visit: OPIOID DETOX Diagnosis Discharge Diagnosis (1) Opioid dependence: Status: Acute Code(s): F11.20 - Opioid dependence, uncomplicated (2) Desire for detoxification: Status: Acute (3) Opiate withdrawal: Status: Acute Code(s): F11.93 - Opioid use, unspecified with withdrawal Medications at Discharge Home Medications NK 04/26/25 Hospital Course Operations None Procedures None Summary of Care Provided Minutes Spent on Discharge: 20 Hospital Course: Patient is a 39-year-old white male who presents emergency department [facility] on 04/26/2025 with a chief complaint of opiate abuse requesting detox. Patient has been abusing opiates for many years. He predominantly uses Percocet which he buys off the street as well as intermittent fentanyl which he snorts. He denies using IV drugs currently or previously. His last use was a day prior to presentation and he was started to have some withdrawal symptoms at the time of admission. He was feeling irritable and had an upset stomach with no emesis. Vital signs on presentation showed temperature 97, heart rate 71 2 and pulse ox was 98% on room air. CBC was unremarkable. Chemistry panel was unremarkable. Toxicology screen was presumptive positive for fentanyl, amphetamines, and benzodiazepines. He was admitted to the medical floor and placed on buprenorphine taper as well as supportive medications for symptom management. He met with [facility] and plan is for outpatient follow-up at IOP after discharge. By the a.m. of 04/29/2025 the patient reported that he was feeling much better with regards to his withdrawal symptoms and really denied any symptoms at that time. We discussed discharge and he felt he was stable and appropriate to go home. He will follow-up at [facility] IOP after discharge. He was discharged home in stable condition on 04/29/2025. Discharge diagnoses: Opiate abuse Opiate withdrawal Amphetamine use Tobacco abuse Obesity Physical Exam Narrative Patient states he is feeling well. Denies any significant withdrawal symptoms at this time. States he feels he is ready to go home. States his plan is for outpatient follow-up at [facility] after discharge. Const alert, oriented x3, no apparent distress, no limitations and well nourished Constitutional Narrative: Middle-aged, white male, lying in bed, watching television, appears comfortable, nontoxic General Appearance: cooperative, comfortable, well kempt and well developed Exam Limitations: no limitations Nutritional Appearance: obese HEENT normocephalic, head/scalp atraumatic and hearing grossly normal bilaterally Resp normal respiratory effort, no retractions, no use of accessory muscles and clear to auscultation bilaterally Auscultation: Negative for rales, rhonchi or wheezes Cardio regular rate, regular rhythm, S1 normal heart sound, S2 normal heart sound, no murmurs, no rub, no gallops and no clicks GI normal to inspection, nondistended, normoactive bowel sounds, soft to palpation and non-tender Neuro oriented x3, moves all extremities and no focal motor deficits Speech: speech normal Psych affect normal Psych Narrative: Pleasant, interacts appropriately Weight / BMI Weight Weight: 102.3 kg Body Mass Index (BMI) 31.4 ABG / Lab / Microbiology Data 04/26/25 12:54 04/26/25 12:54 D/C Instructions Discharge Diet: No restrictions Discharge Activity: Return to Normal Activity DC O2, CPAP, BIPAP Needs Home O2 Discharge instructions: No Meaningful Use Info Meaningful Use Meaningful Use Diagnoses (Choose all that apply): None applicable Ischemic Stroke Statin Dosing Therapy Reference: STATIN DOSE THERAPY REFERENCE: * Patients > 75 years receive moderate or high dose statin therapy. * Patients 75 years or YOUNGER should receive HIGH intensity statin dose unless contraindicated. You will be required to document reason for non-treatment if statin daily dose does not meet guidelines. HIGH DOSE STATIN THERAPY DAILY Atorvastatin > than or = to 40 mg Rosuvastatin > than or = to 20 mg Amlodipine + Atorvastatin > than or = to 2.5/40 mg Ezetimibe + Simvastatin 10/80 mg Simvastatin 80mg Discharge Plan Admission Admit Date/Time: 04/26/25 14:23 Primary Reason for Your Visit: Opiate detox Attending Provider: Sudha Machuca Primary Care Provider: Care Physician,No Primary Consulting Providers: Olivia Xie Instructions Additional Instructions / Restrictions: 1. Please follow-up at [facility] as instructed for IOP with regards to ongoing sobriety Discharge Orders/Prescriptions Prescriptions: No Action [facility] Referrals / Follow Up: Care Physician,No Primary [Primary Care Provider] - Disposition Disposition (needs filled in before D/C Order can be placed): Home, Self Care Charges/Coding Visit Charges Inpatient E&M: [id number] Disch Hosp
--- NOTE | 2025-04-29 11:17 | CASEMGMT ---
Social Work- SW met with pt to discuss self-pay status. Pt reports that [employer] completed [employer] application. It is anticipated that pt will be approved according to pt. Pt reports that he has no prescriptions and no PCP. Pt reports the plan is to follow up with [facility] at discharge. SW provided PCP list, [facility] information, [facility], and [facility] card. Pt reports no additional needs at this time. OSEAS Cristina
== END 2025-04-29 11:36 | disposition home or self-care (01) | DRG 897 ==
LOC: ED 14:04 → MS3 15:38
PROVIDERS: Physician Assistant; Admitting Provider Internal Medicine; Emergency Provider Emergency Medicine; Referring Provider Internal Medicine; Visit Provider Internal Medicine
DX: F11.23 Opioid dependence with withdrawal (principal); E66.9 Obesity, unspecified; F15.90 Other stimulant use, unspecified, uncomplicated; F17.210 Nicotine dependence, cigarettes, uncomplicated; Z68.31 Body mass index [BMI] 31.0-31.9, adult
CPT/HCPCS: 36415; 80048; 80307; 82077; 85025; 99283